=== PATIENT | male | born 1965 | race Caucasian/White ===

== ENCOUNTER 2021-08-23 18:29 | Emergency (ER) | payer MEDICAID, SELFPAY ==
--- NOTE | ~2021-08-23 | CT_ITS ---
EXAMINATION: CT ABDOMEN AND PELVIS WITHOUT CONTRAST CLINICAL INFORMATION: 55-year-old male with right lower quadrant pain COMPARISON: None TECHNIQUE: Multidetector volumetric imaging was performed from the superior aspect of the liver through the pubic symphysis. Sagittal and coronal reformatted images were obtained on the technologist's workstation. This CT examination was performed using dose optimization techniques as appropriate, variously including the following: *Automated exposure control *Adjustment of mA and/or kV according to patient size (this includes techniques or standardized protocols for targeted exams where dose is matched to indication/reason for exam; i.e. extremities or head) *Use of iterative reconstruction technique DLP: 579 mGy-cm FINDINGS: Visualized lung bases demonstrate mild dependent atelectasis. The liver demonstrates normal size, contour and attenuation. An approximately 2 cm gallstone is noted within an otherwise unremarkable appearing gallbladder. The pancreas, spleen and adrenal glands are unremarkable. Symmetrically sized kidneys. No renal calculi or hydronephrosis bilaterally. Normal caliber loops of small and large bowel. Normal appendix. Normal caliber abdominal aorta. No retroperitoneal lymphadenopathy. The bladder is normal in appearance. The prostate gland is at the upper limits of normal in size measuring 4.5 cm in maximum transverse dimension. No gross free pelvic fluid. No inguinal lymphadenopathy. Mild to moderate degenerative changes of the spine. CT/CT abdomen pelvis wo con IMPRESSION: -Cholelithiasis. -Otherwise unremarkable CT imaging of the abdomen and pelvis. Fleischner guidelines were followed.
[2021-08-23 19:56] VITALS: BP 178/81; PULSE 83; RESP 18; TEMP 36.7; O2SAT 99; BMI 28.3
[2021-08-23 20:26] LABS: Appearance Urine CLEAR; Color Urine YELLOW; Glucose Urine UA NEG (NEG); Leukocyte Esterase Urine NEG (NEG); Nitrite Urine NEG (NEG); Specific Gravity - Urine 1.025 (1.005-1.025); Urine Blood NEG (NEG); Urine Ketones 5 MG/DL (NEG); Urine Protein TRACE MG/DL (NEG-TRACE)
[2021-08-23 21:36] VITALS: BP 187/89; PULSE 74; RESP 18; TEMP 36.9; O2SAT 98
--- NOTE | 2021-08-23 21:39 | ED_ITS ---
HPI - Abdominal Pain General Chief Complaint: Abdominal Pain Stated Complaint: pain in appendix Time Seen by Provider: 08/23/21 21:38 Source: patient Mode of arrival: ambulatory Limitations: no limitations History of Present Illness HPI narrative: Patient with no significant past medical history complaining of right lower abdominal pain for last 5 days no nausea no vomiting, pain comes and goes no urinating problem no fever no chills Related Data Allergies Allergy/AdvReac Type Severity Reaction Status Date / Time No Known Allergies Allergy Unverified 03/31/20 16:54 Review of Systems Review of Systems Yes all other systems are reviewed and are negative Physical Exam Vital Signs: Vital Signs: Last Vital Signs Temp 98.4 F 08/23/21 21:36 Pulse 89 08/23/21 23:07 Resp 16 08/23/21 23:07 BP 186/89 H 08/23/21 23:07 Pulse Ox 96 08/23/21 23:07 BMI result Body Mass Index 28.3 Appearance: Alert. Oriented X3. No acute distress. Eyes: No pallor /icterus ENT: Pharynx normal. Oral Mucosa moist Neck: Normal inspection. Neck supple. CVS: Normal heart rate and rhythm. Pulses normal. Respiratory: No respiratory distress. Equal air entry bilateral, no wheezing/rales/rhonchi Abdomen: Soft, mild tenderness right lower quadrant rebound tenderness or guarding Bowel sounds are present, no mass palpable, no CVA tenderness Skin: Skin warm and dry. Normal skin color. Normal skin turgor. Extremities: No lower extremity edema. No calf tenderness Neuro: Oriented X 3. MDM - Abdominal Pain MDM Narrative Medical decision making narrative: Patient with right lower abdominal pain for 1 week with normal labs CT scan negative for any a inflammation showed 2 cm gallstone impression patient does not have any pain in the right upper quadrant no nausea no vomiting will discharge patient home with diagnosis of gallstone advised to follow with surgeon Differential Diagnosis Differential diagnosis: Likely abdominal pain Lab Data Attestation: I reviewed the patient's lab results. Result diagrams: 08/23/21 21:33 08/23/21 21:33 Labs: Lab Results 08/23/21 08/23/21 08/23/21 Range/Units 20:14 21:33 21:33 WBC 6.4 (4.8-10.8) X10*3/uL RBC 4.41 L (4.60-5.80) X10*6/uL Hgb 13.5 L (14.0-18.0) g/dl Hct 40.7 L (42.0-52.0) % MCV 92.3 (80.0-98.0) fL MCH 30.6 (27.0-33.0) pg MCHC 33.2 (31.0-36.0) g/dl RDW 12.0 (11.0-16.0) % Plt Count 234 (160-400) X10*3/uL MPV 10.6 (9.4-12.4) fL Immature Gran % (Auto) 0.5 H (0.0-0.4) % Neut % (Auto) 56.3 (45-73) % Lymph % (Auto) 31.3 (20-40) % [place] % (Auto) 7.7 (2-11) % Eos % (Auto) 3.4 (0-4) % Baso % (Auto) 0.8 (0-2) % Lymph # (Auto) 2.0 (1.2-4.9) X10*3/uL [place] # (Auto) 0.5 (0.1-1.2) X10*3/uL Eos # (Auto) 0.2 (0.0-0.4) X10*3/uL Baso # (Auto) 0.1 (0.0-0.2) X10*3/uL Abs Immat Gran (auto) 0.03 (0.00-0.03) X10*3/uL Absolute Neuts (auto) 3.6 (2.0-8.3) x10*3/uL Absolute Nucleated RBC 0.000 (0.0-0.012) X10*3/uL Nucleated RBC % (auto) 0.0 (0.0-0.2) /100WBC Sodium 143 (135-145) mmol/L Potassium 4.0 (3.3-5.1) mmol/L Chloride 109 H (96-108) mmol/L Carbon Dioxide 29 (22-29) mmol/L Anion Gap 9 L (12-20) BUN 27 H (9-16) mg/dL Creatinine 1.29 (0.5-1.4) mg/dL Estim Creat Clear Calc 56.4 Estimated GFR 57 Random Glucose 100 (60-115) mg/dL Calcium 9.7 (8.4-10.2) mg/dL Urine Color YELLOW Urine Appearance CLEAR Urine pH 6.0 (5.0-8.0) Ur Specific Rudy 1.025 (1.005-1.025) Urine Protein TRACE (NEG-TRACE) MG/DL Urine Glucose (UA) NEG (NEG) MG/DL Urine Ketones 5 (NEG) MG/DL Urine Blood NEG (NEG) Urine Nitrite NEG (NEG) Ur Leukocyte Esterase NEG (NEG) Discharge Plan Discharge Clinical Impression: Abdominal pain, Gall stone Patient Disposition: Home, Self-Care Instructions: Gallstones (ED), Abdominal Pain (ED) Additional Instructions: Drink plenty of fluids Avoid fried food Follow-up with surgeon if pain in upper quad right upper quadrant/ vomiting Beber mucho l?quido Malina la comida frita Seguimiento con el cirujano si hay dolor en el cu?driceps superior derecho/v?mitos Referrals: Desmond Walters MD [Physician] - 1 week Discharge Date/Time: 08/23/21 23:08 Print Language: Azeri [facility] Past Medical History Medical History No known health problems Social History Social History Patient Tobacco Use Status: Never used Tobacco Use of substances other than those prescribed or required for medical reasons: No Advance Directives: No Advance Directives Information Provided: No
[2021-08-23 21:49] LABS: MANUAL DIFF FLAG NO
--- NOTE | 2021-08-23 21:49 | PC.NURSE ---
pt a&o, denies any sob or chest pain, pt reports feelings better than either. pt denies any N/V. pt reports having a normal bowel movement.
[2021-08-23 21:50] LABS: Basophils Absolute Auto 0.1 X10*3/uL (0.0-0.2); Basophils Percent Auto 0.8 % (0-2); Eosinophils Absolute Auto 0.2 X10*3/uL (0.0-0.4); Eosinophils Percent Auto 3.4 % (0-4); Hematocrit 40.7 % (42.0-52.0); Hemoglobin 13.5 g/dl (14.0-18.0); Imm Gran Abs Auto 0.03 X10*3/uL (0.00-0.03); Imm Gran Pct Auto 0.5 % (0.0-0.4); Lymphocytes Percent Auto 31.3 % (20-40); Mean Corpuscular HGB Conc 33.2 g/dl (31.0-36.0); Mean Corpuscular Hemoglobin 30.6 pg (27.0-33.0); Mean Corpuscular Volume 92.3 fL (80.0-98.0); Mean Platelet Volume 10.6 fL (9.4-12.4); Monocytes Absolute Auto 0.5 X10*3/uL (0.1-1.2); Monocytes Percent Auto 7.7 % (2-11); Neutrophils Absolute Auto 3.6 x10*3/uL (2.0-8.3); Neutrophils Percent Auto 56.3 % (45-73); Platelet Count 234 X10*3/uL (160-400); Red Blood Count 4.41 X10*6/uL (4.60-5.80); White Blood Count 6.4 X10*3/uL (4.8-10.8)
[2021-08-23 22:18] LABS: Anion Gap 9 (12-20); Blood Urea Nitrogen 27 mg/dL (9-16); Calcium 9.7 mg/dL (8.4-10.2); Carbon Dioxide 29 mmol/L (22-29); Chloride 109 mmol/L (96-108); Creatinine Clr Calc Pharmacy 56.4; Estimated Glomerular Filt Rate 57; Glucose Random 100 mg/dL (60-115); Sodium 143 mmol/L (135-145)
--- NOTE | 2021-08-23 22:24 | PC.NURSE ---
pt is resting in bed no sign of distress.
[2021-08-23 23:07] VITALS: BP 186/89; PULSE 89; RESP 16; O2SAT 96
== END 2021-08-23 23:08 | disposition home or self-care (01) ==
PROVIDERS: Emergency Provider Internal Medicine
DX: R10.31 Right lower quadrant pain (principal); K80.50 Calculus of bile duct without cholangitis or cholecystitis without obstruction
CPT/HCPCS: 36415; 74176; 80048; 81003; 85025; 99284

== ENCOUNTER → 2021-10-10 14:00 | Outpatient (BNVA) | payer MEDICAID, SELFPAY | PROVIDERS: Visit Provider Surgery | DX: K80.50 Calculus of bile duct without cholangitis or cholecystitis without obstruction (principal) | CPT/HCPCS: 99202 ==

== ENCOUNTER 2021-11-06 07:14 | Day surgery (SDC) | payer MEDICAID, SELFPAY ==
[2021-10-31 10:19] VITALS: BMI 30.6
[2021-11-06] VITALS (8 sets, daily range): BP systolic 122–157; BP diastolic 72–85; PULSE 64–77; RESP 16–18; TEMP 36.1–36.3; O2SAT 92–100
[2021-11-06] MEDS: Lactated Ringers 1,000 ML 100 ML IVCONT (08:09)
--- NOTE | 2021-11-06 08:31 | MHC.SHP ---
Pre-Procedural Eval Section A Date of Service: 11/06/21 The patient is an INPATIENT: No Changes since office visit: Yes Patient answered all questions; No Cold of Flu in the past 2 weeks, No New Medical Problems and No Changes in Medication The History & Physical has been completed within 30 days and I have reviewed it.: Yes Section B Chief Complaint: Calculus of bile duct without cholangitis Allergies: Allergies Allergy/AdvReac Type Severity Reaction Status Date / Time No Known Allergies Allergy Unverified 10/10/21 14:11 Plan Diagnosis/Plan: Unchanged I have reviewed the history and physical and performed a pertinent physical examination on my patient. No changes have occurred unless specified.
--- NOTE | 2021-11-06 08:42 | HO.ANESPROP2 ---
HPI - Anesthesia Eval Consult details Narrative: 55 M for palmira cooper PMFSH Active Problems Active Problems: All Active Problems (Updated 10/31/21 @ 10:14 by Kathy Streeter RN) Biliary colic (Acute) Past Medical History Medical History (Updated 10/31/21 @ 10:14 by Kathy Streeter RN) Elevated cholesterol HTN (hypertension) Functional capacity: independent ambulation Family History Family History Paternal Uncle Prostate cancer Family history of problems with anesthesia: No Surgical History Surgical History (Updated 10/31/21 @ 10:14 by Kathy Streeter RN) Hx of excision of mass History of Problems with Anesthesia: No Social History Social History Alcohol intake: never Patient Tobacco Use Status: Never used Tobacco Meds Allergies Allergy/AdvReac Type Severity Reaction Status Date / Time No Known Allergies Allergy Unverified 10/10/21 14:11 Active Medications: Current Medications Lactated Ringer's (Lr) 1,000 mls @ 100 mls/hr IVCONT .Q10H KAMILAH Last Admin: 11/06/21 08:09 Dose: 100 mls/hr Documented by: Home Medications Medication Instructions Recorded Confirmed Last Taken Type atorvastatin 10 mg tablet 10 mg PO DAILY 10/10/21 10/31/21 Unknown History cholecalciferol (vitamin D3) 25 25 mcg PO QAM 10/10/21 10/31/21 Unknown History mcg (1,000 unit) capsule lisinopril 20 1 tab PO DAILY 10/10/21 10/31/21 11/06/21 History mg-hydrochlorothiazide 12.5 mg tablet Exam Exam Date and Time: November 06, 2021 0842 Height,Weight and Vital Signs: Height 5 ft 3 in Weight 78.471 kg Last Vital Signs Temp 97.2 F 11/06/21 07:56 Pulse 72 11/06/21 07:56 Resp 18 11/06/21 07:56 BP 157/83 H 11/06/21 07:56 Pulse Ox 97 11/06/21 07:56 Airway Mallampati Class: III TM Dist: >3cm Neck ROM: Full Loose/Missing/Broken Teeth: Yes (Chipped teeth ) Heart: S1, S2 Lungs: b/l breath sounds Assessment and Plan Assessment Anesthesia Assessment: Anesthesia Plan Discussed Final Anesthetic Review Family History of Problems with Anesthesia: No History of Problems with Anesthesia: No NPO: Yes ASA Class: II Final Preanesthetic Review: No Changes in Pt Med Stat, Meds/Allgs Chart Reviewed, Consent Obtained/Reviewed and Anes Risks/Benef Reviewed Patient Risk: Intermediate Procedure Risk: Intermediate Anesthetic Plan Anesthetic Plan: GA Disposition: Standard PACU
--- NOTE | 2021-11-06 10:00 | W.PM.OPN ---
Operative Note Operative Note Date of Service: 11/06/21 Narrative: Preoperative diagnosis: Biliary Colic Postoperative diagnosis: Same Procedure: Laparoscopic cholecystectomy Surgeon: Desmond Walters MD [employer] Repairer: LILY Vilchis Anesthesia: General endotracheal Indications for procedure: 55 year old male patient presenting with complaints of abdominal pain in the right upper quadrant found to have a single large gallstone within the gallbladder. Operative findings: Evidence of chronic cholecystitis with adhesions to the gallbladder wall and a single large gallstone at the base of the gallbladder Specimen: gallbladder Estimated blood loss:1 ml Complications: none Procedure details: Patient was brought to the OR and placed in a supine position. After administering general anesthesia the patient's abdomen was prepped with ChloraPrep and draped in a sterile fashion. Local anesthesia consisting of 0.5% Ropivacaine without epinephrine was infiltrated in a periumbilical region. A 5 mm incision was made above the umbilicus in a transverse fashion. The Veress needle was then inserted while elevating abdominal cavity with towel clips. After positive drop test the abdomen was insufflated to a pressure of 15 mm of mercury. The Veress needle was then removed and a 5 mm trocar inserted. The camera was inserted in the abdomen explored. A 12 mm trocar was then placed in the epigastrium. Two 5 mm trocars placed in the right upper quadrant by the esl instructional assistant. The patient was placed in reverse Trendelenburg positioning and rotated to the left. The gallbladder was grasped with the fundus and retracted cephalad by the esl instructional assistant. The infundibulum was then grasped and retracted away from the liver bed, also by the esl instructional assistant. The Dolphin dissected was then used by the surgeon to dissect the peritoneum off the infundibulum to reveal the junction with the cystic duct. Cystic artery was noted slightly medial and posterior to the cystic duct. After obtaining a critical view the cystic duct was doubly clipped and divided. The cystic artery was then doubly clipped and divided. The gallbladder was then dissected off the liver bed using electrocautery with an L hook. Hemostasis was assured all times using the electrocautery. When the gallbladder is completely dissected off the liver bed was placed in an Endo-Catch bag and brought out through the epigastric incision. The gallbladder was sent to pathology for further examination. The abdomen was then re-examined. The liver bed was irrigated and suctioned dry. No bleeding or bile leak could be identified. CO2 was then evacuated and all trocars removed. Fascia was closed at the epigastric incision using a awcmsh-be-desuy 0 Polysorb suture. Skin was closed in all incisions using a subcuticular 4 0 Polysorb suture by both the surgeon and esl instructional assistant. Sterile dressings consisting of Steri-Strips, 2 x 2 gauze, and Tegaderm were then applied. The patient tolerated the procedure well. Sponge instrument and needle counts reported as correct. The patient was transferred to PACU in stable condition.
[2021-11-06] MEDS: oxyCODONE HCl Immed Release 5 MG TABLET PO (10:48)
[2021-11-06] MEDS: Acetaminophen 325 MG TABLET 650 MG PO (10:49)
== END 2021-11-06 12:10 | disposition home or self-care (01) ==
PROVIDERS: Visit Provider Surgery
PROC: 0FT44ZZ Resection of Gallbladder, Percutaneous Endoscopic Approach (ICD-10-PCS; CPT 47562; principal; 2021-11-06 09:10)
DX: K80.10 Calculus of gallbladder with chronic cholecystitis without obstruction (principal); K82.8 Other specified diseases of gallbladder; I10 Essential (primary) hypertension; Z79.899 Other long term (current) drug therapy
CPT/HCPCS: 47562; 88304; J1170; J2250; J2370; J2795; J3010

== ENCOUNTER → 2021-11-14 10:45 | Outpatient (BNVA) | payer MEDICAID, SELFPAY | PROVIDERS: PCP Nurse Practitioner; Visit Provider Surgery | DX: Z48.815 Encounter for surgical aftercare following surgery on the digestive system (principal); Z87.19 Personal history of other diseases of the digestive system | CPT/HCPCS: 99212 ==

== ENCOUNTER → 2022-08-10 10:39 | Outpatient (BNVA) | payer MEDICAID, SELFPAY | PROVIDERS: PCP Internal Medicine Geriatric Medicine; Visit Provider Nurse Practitioner Family | DX: N52.9 Male erectile dysfunction, unspecified (principal); R68.82 Decreased libido; Z87.898 Personal history of other specified conditions | CPT/HCPCS: 99202 ==

== ENCOUNTER 2022-08-11 20:06 | Emergency (ER) | payer MEDICAID, SELFPAY ==
[2022-08-11 20:09] VITALS: BP 141/79; PULSE 97; RESP 18; TEMP 36.4; O2SAT 97; BMI 31.5
--- NOTE | 2022-08-11 20:14 | ED_ITS ---
HPI - General Adult General Chief complaint: General Medical <DANIEL Ferro - Last Filed: 08/11/22 20:14> Stated complaint: Rectal bleeding? <DANIEL Ferro - Last Filed: 08/11/22 20:14> Time Seen by Provider: 08/11/22 20:27 <DANIEL Ferro - Last Filed: 08/11/22 20:14> Source: patient <Sarthak Gill MD - Last Filed: 08/12/22 01:11> Mode of arrival: ambulatory <Sarthak Gill MD - Last Filed: 08/12/22 01:11> Limitations: no limitations <Sarthak Gill MD - Last Filed: 08/12/22 01:11> History of Present Illness HPI narrative: Patient with History of hemorrhoids noticed bleeding per rectum for last 3 days whenever he moves bowel stool is bright red in color and drips after the bowel movement stool is normal color as such also patient complaining of mild suprapubic discomfort fever no chills having loose stools no constipation lately <Sarthak Gill MD - Last Filed: 08/12/22 01:11> Related Data Home medications: Home Medications Medication Instructions Recorded Confirmed atorvastatin 10 mg tablet 10 mg PO DAILY 10/10/21 08/10/22 cholecalciferol (vitamin D3) 25 25 mcg PO QAM 10/10/21 08/10/22 mcg (1,000 unit) capsule lisinopril 20 1 tab PO DAILY 10/10/21 08/10/22 mg-hydrochlorothiazide 12.5 mg tablet Previous Rx's Medication Instructions Recorded tadalafil 20 mg tablet (Cialis) 20 mg PO DAILY PRN sexual activity 08/10/22 60 days #20 tabs hydrocortisone acetate 25 mg 25 mg GA BID #12 ea 08/11/22 rectal suppository (Anusol-HC) <DANIEL Ferro - Last Filed: 08/11/22 20:14> Allergies/adverse reactions: Allergies Allergy/AdvReac Type Severity Reaction Status Date / Time No Known Allergies Allergy Unverified 08/10/22 11:11 <DANIEL Ferro - Last Filed: 08/11/22 20:14> Review of Systems Review of Systems: Yes all other systems are reviewed and are negative <Sarthak Gill MD - Last Filed: 08/12/22 01:11> [facility] Past Medical History Medical History: Medical History Elevated cholesterol HTN (hypertension) <DANIEL Ferro - Last Filed: 08/11/22 20:14> Surgical History: Surgical History History of laparoscopic cholecystectomy (11/06/21) Hx of excision of mass <DANIEL Ferro - Last Filed: 08/11/22 20:14> Family History Family History: Family History Paternal Uncle Prostate cancer <DANIEL Ferro - Last Filed: 08/11/22 20:14> Social History Social History: Social History Alcohol intake: never Patient Tobacco Use Status: Never used Tobacco Advance Directives: No Advance Directives Information Provided: No <DANIEL Ferro - Last Filed: 08/11/22 20:14> Physical Exam ED Vital Signs: Vital Signs - 24 hr 08/11/22 20:09 08/11/22 22:01 Temperature 97.6 F 98.2 F Pulse Rate 97 94 Respiratory Rate 18 18 Blood Pressure 141/79 H 142/88 H Pulse Oximetry 97 95 Oxygen Delivery Method Room Air Room Air BMI result Body Mass Index 31.5 <DANIEL Ferro - Last Filed: 08/11/22 20:14> Vital Signs - 24 hr 08/11/22 20:09 08/11/22 22:01 Temperature 97.6 F 98.2 F Pulse Rate 97 94 Respiratory Rate 18 18 Blood Pressure 141/79 H 142/88 H Pulse Oximetry 97 95 Oxygen Delivery Method Room Air Room Air BMI result Body Mass Index 31.5 <Sarthak Gill MD - Last Filed: 08/12/22 01:11> Appearance: Alert. Oriented X3. No acute distress. Eyes: PERRLA, No Nystagmus ENT: Pharynx normal. Oral Mucosa moist Neck: Normal inspection. Neck supple. CVS: Normal heart rate and rhythm. Pulses normal. Respiratory: No respiratory distress. Equal air entry bilateral, no wheezing/rales/rhonchi Abdomen: Soft and nontender. Bowel sounds are present, no mass palpable, no CVA tenderness rectal: Hemorrhoids palpable non bleeding Skin: Skin warm and dry. Normal skin color. Normal skin turgor. Extremities: No lower extremity edema. No calf tenderness Neuro: Oriented X 3. No motor deficit. No sensory deficit. <Sarthak Gill MD - Last Filed: 08/12/22 01:11> Course Course Course Narrative: RME completed by Diane Rogel PA-C. Patient is a 56 year old male with a history of diverticulitis and hemorrhoids presenting to the emergency department today with bright red rectal bleeding. Labs ordered. Patient placed back in the waiting room pending results and room availability. <DANIEL Ferro - Last Filed: 08/11/22 20:14> Medical Decision Making Medical Decision Making [facility] Narrative: Patient with stable H&H with hemorrhoidal bleed likely the cause for rectal bleed. Discharge patient home on Anusol suppository advised not to strain and take stool softener for constipation <Sarthak Gill MD - Last Filed: 08/12/22 01:11> Lab Data [facility] Lab Attestation statement: I reviewed the patient's lab results. <Sarthak Gill MD - Last Filed: 08/12/22 01:11> Result Diagrams: 08/11/22 20:25 08/11/22 20:25 <DANIEL Ferro - Last Filed: 08/11/22 20:14> Labs: Lab Results 08/11/22 08/11/22 Range/Units 20:25 20:25 WBC 8.5 (4.8-10.8) X10*3/uL RBC 4.44 L (4.60-5.80) X10*6/uL Hgb 13.5 L (14.0-18.0) g/dl Hct 38.7 L (42.0-52.0) % MCV 87.2 (80.0-98.0) fL MCH 30.4 (27.0-33.0) pg MCHC 34.9 (31.0-36.0) g/dl RDW 12.5 (11.0-16.0) % Plt Count 252 (160-400) X10*3/uL MPV 10.0 (9.4-12.4) fL Immature Gran % (Auto) 0.4 (0.0-0.4) % Neut % (Auto) 68.3 (45-73) % Lymph % (Auto) 21.3 (20-40) % [place] % (Auto) 6.9 (2-11) % Eos % (Auto) 2.0 (0-4) % Baso % (Auto) 1.1 (0-2) % Lymph # (Auto) 1.8 (1.2-4.9) X10*3/uL [place] # (Auto) 0.6 (0.1-1.2) X10*3/uL Eos # (Auto) 0.2 (0.0-0.4) X10*3/uL Baso # (Auto) 0.1 (0.0-0.2) X10*3/uL Abs Immat Gran (auto) 0.03 (0.00-0.03) X10*3/uL Absolute Neuts (auto) 5.8 (2.0-8.3) x10*3/uL Absolute Nucleated RBC 0.000 (0.0-0.012) X10*3/uL Nucleated RBC % (auto) 0.0 (0.0-0.2) /100WBC Sodium 140 (135-145) mmol/L Potassium 3.2 L (3.3-5.1) mmol/L Chloride 100 (96-108) mmol/L Carbon Dioxide 31 H (22-29) mmol/L Anion Gap 12 (12-20) BUN 26 H (9-16) mg/dL Creatinine 1.51 H (0.5-1.4) mg/dL Estim Creat Clear Calc 50.1 Estimated GFR 48 Random Glucose 144 H (60-115) mg/dL Calcium 9.5 (8.4-10.2) mg/dL Magnesium 1.8 (1.6-2.6) mg/dL Total Bilirubin 0.5 (0.0-1.0) mg/dL AST 27 (5-37) U/L ALT 45 H (0-40) U/L Alkaline Phosphatase 83 (39-117) U/L Total Protein 6.9 (6.5-8.0) g/dL Albumin 4.2 (3.5-5.0) g/dL <DANIEL Ferro - Last Filed: 08/11/22 20:14> Lab Results 08/11/22 08/11/22 Range/Units 20:25 20:25 WBC 8.5 (4.8-10.8) X10*3/uL RBC 4.44 L (4.60-5.80) X10*6/uL Hgb 13.5 L (14.0-18.0) g/dl Hct 38.7 L (42.0-52.0) % MCV 87.2 (80.0-98.0) fL MCH 30.4 (27.0-33.0) pg MCHC 34.9 (31.0-36.0) g/dl RDW 12.5 (11.0-16.0) % Plt Count 252 (160-400) X10*3/uL MPV 10.0 (9.4-12.4) fL Immature Gran % (Auto) 0.4 (0.0-0.4) % Neut % (Auto) 68.3 (45-73) % Lymph % (Auto) 21.3 (20-40) % [place] % (Auto) 6.9 (2-11) % Eos % (Auto) 2.0 (0-4) % Baso % (Auto) 1.1 (0-2) % Lymph # (Auto) 1.8 (1.2-4.9) X10*3/uL [place] # (Auto) 0.6 (0.1-1.2) X10*3/uL Eos # (Auto) 0.2 (0.0-0.4) X10*3/uL Baso # (Auto) 0.1 (0.0-0.2) X10*3/uL Abs Immat Gran (auto) 0.03 (0.00-0.03) X10*3/uL Absolute Neuts (auto) 5.8 (2.0-8.3) x10*3/uL Absolute Nucleated RBC 0.000 (0.0-0.012) X10*3/uL Nucleated RBC % (auto) 0.0 (0.0-0.2) /100WBC Sodium 140 (135-145) mmol/L Potassium 3.2 L (3.3-5.1) mmol/L Chloride 100 (96-108) mmol/L Carbon Dioxide 31 H (22-29) mmol/L Anion Gap 12 (12-20) BUN 26 H (9-16) mg/dL Creatinine 1.51 H (0.5-1.4) mg/dL Estim Creat Clear Calc 50.1 Estimated GFR 48 Random Glucose 144 H (60-115) mg/dL Calcium 9.5 (8.4-10.2) mg/dL Magnesium 1.8 (1.6-2.6) mg/dL Total Bilirubin 0.5 (0.0-1.0) mg/dL AST 27 (5-37) U/L ALT 45 H (0-40) U/L Alkaline Phosphatase 83 (39-117) U/L Total Protein 6.9 (6.5-8.0) g/dL Albumin 4.2 (3.5-5.0) g/dL <Sarthak Gill MD - Last Filed: 08/12/22 01:11> Discharge Plan Discharge Clinical Impression: Bleeding hemorrhoid <DANIEL Ferro - Last Filed: 08/11/22 20:14> Patient Disposition: Home, Self-Care <DANIEL Ferro - Last Filed: 08/11/22 20:14> Instructions: Hemorrhoids (ED) <DANIEL Ferro - Last Filed: 08/11/22 20:14> Additional Instructions: Use suppository twice daily as prescribed Avoid constipation or straining while moving bowels Report to the ER if bleeding continues Use el supositorio dos veces al d?a seg?n lo prescrito Evite el estre?imiento o el esfuerzo al defecar Informe a la zoe de emergencias si el sangrado contin?a <DANIEL Ferro - Last Filed: 08/11/22 20:14> Prescriptions: New hydrocortisone acetate [Anusol-HC] 25 mg suppository 25 mg GA BID Qty: 12 0RF No Action lisinopril-hydrochlorothiazide 20-12.5 mg tablet 1 tab PO DAILY atorvastatin 10 mg tablet 10 mg PO DAILY cholecalciferol (vitamin D3) 25 mcg (1,000 unit) capsule 25 mcg PO QAM tadalafil [Cialis] 20 mg tablet 20 mg PO DAILY PRN (Reason: sexual activity) 60 Days Qty: 20 0RF Rx Instructions: administer approximately 30min before sexual activity; do not use more than 1 dose per 24hrs BIN N Group [facility] [id number] <DANIEL Ferro - Last Filed: 08/11/22 20:14> Interventions: ED Discharge Assessment Last Done: 08/11/22 22:04 <DANIEL Ferro - Last Filed: 08/11/22 20:14> Discharge Date/Time: 08/11/22 22:04 <DANIEL Ferro - Last Filed: 08/11/22 20:14> Print Language: Japanese <DANIEL Ferro - Last Filed: 08/11/22 20:14>
[2022-08-11 20:31] LABS: MANUAL DIFF FLAG NO
[2022-08-11 20:40] LABS: Basophils Absolute Auto 0.1 X10*3/uL (0.0-0.2); Basophils Percent Auto 1.1 % (0-2); Eosinophils Absolute Auto 0.2 X10*3/uL (0.0-0.4); Hematocrit 38.7 % (42.0-52.0); Hemoglobin 13.5 g/dl (14.0-18.0); Imm Gran Abs Auto 0.03 X10*3/uL (0.00-0.03); Imm Gran Pct Auto 0.4 % (0.0-0.4); Lymphocytes Absolute Auto 1.8 X10*3/uL (1.2-4.9); Lymphocytes Percent Auto 21.3 % (20-40); Mean Corpuscular HGB Conc 34.9 g/dl (31.0-36.0); Mean Corpuscular Hemoglobin 30.4 pg (27.0-33.0); Mean Corpuscular Volume 87.2 fL (80.0-98.0); Monocytes Absolute Auto 0.6 X10*3/uL (0.1-1.2); Monocytes Percent Auto 6.9 % (2-11); Neutrophils Absolute Auto 5.8 x10*3/uL (2.0-8.3); Neutrophils Percent Auto 68.3 % (45-73); Platelet Count 252 X10*3/uL (160-400); Red Blood Count 4.44 X10*6/uL (4.60-5.80); Red Cell Distribution Width 12.5 % (11.0-16.0); White Blood Count 8.5 X10*3/uL (4.8-10.8)
[2022-08-11 20:48] LABS: Alanine Aminotransferase 45 U/L (0-40); Albumin Level 4.2 g/dL (3.5-5.0); Alkaline Phosphatase 83 U/L (39-117); Anion Gap 12 (12-20); Aspartate Amino Transferase 27 U/L (5-37); Bilirubin Total 0.5 mg/dL (0.0-1.0); Blood Urea Nitrogen 26 mg/dL (9-16); Calcium 9.5 mg/dL (8.4-10.2); Carbon Dioxide 31 mmol/L (22-29); Chloride 100 mmol/L (96-108); Creatinine Clr Calc Pharmacy 50.1; Estimated Glomerular Filt Rate 48; Glucose Random 144 mg/dL (60-115); Magnesium 1.8 mg/dL (1.6-2.6); Potassium 3.2 mmol/L (3.3-5.1); Sodium 140 mmol/L (135-145); Total Protein 6.9 g/dL (6.5-8.0)
[2022-08-11 22:01] VITALS: BP 142/88; PULSE 94; RESP 18; TEMP 36.8; O2SAT 95
== END 2022-08-11 22:04 | disposition home or self-care (01) ==
PROVIDERS: Physician Assistant Medical; Emergency Provider Internal Medicine; PCP Internal Medicine Geriatric Medicine
DX: K64.9 Unspecified hemorrhoids (principal); I10 Essential (primary) hypertension; E78.00 Pure hypercholesterolemia, unspecified; Z79.02 Long term (current) use of antithrombotics/antiplatelets; Z79.899 Other long term (current) drug therapy
CPT/HCPCS: 36415; 80053; 83735; 85025; 99283; 99284

== ENCOUNTER 2022-10-08 11:44 | Outpatient (REF) | payer MEDICAID, SELFPAY ==
[2022-10-08 13:30] LABS: PSA,Total (Free>4and<10) 2.88 ng/mL (0.00-4.00)
[2022-10-12 14:39] LABS: Testosterone, Free 24.5 pg/mL (35.0-155.0); Testosterone, Total 152 ng/dL (250-1100)
== END 2022-10-08 11:45 | disposition home or self-care (01) ==
LOC: HO.LAB 11:44
PROVIDERS: PCP Internal Medicine Geriatric Medicine; Visit Provider Nurse Practitioner Family
DX: N52.9 Male erectile dysfunction, unspecified (principal); R68.82 Decreased libido; Z87.898 Personal history of other specified conditions; Z12.5 Encounter for screening for malignant neoplasm of prostate
CPT/HCPCS: 36415; 84153; 84402; 84403

== ENCOUNTER → 2022-10-23 10:30 | Outpatient (BNVA) | payer MEDICAID, SELFPAY | PROVIDERS: PCP Internal Medicine Geriatric Medicine; Visit Provider Nurse Practitioner Family | DX: E29.1 Testicular hypofunction (principal); R68.82 Decreased libido; N52.9 Male erectile dysfunction, unspecified | CPT/HCPCS: 99212 ==

== ENCOUNTER 2023-01-29 13:40 | Outpatient (REF) | payer MEDICAID, SELFPAY ==
[2023-01-29 16:58] LABS: TSH reflex Free T4 7.62 uIU/mL (0.32-4.0)
[2023-01-29 17:54] LABS: Free T4 (Free Thyroxine) 0.84 ng/dL (0.71-1.85)
[2023-01-31 07:24] LABS: Lutenizing Hormone 4.1 mIU/mL (1.5-9.3)
[2023-02-03 12:23] LABS: Testosterone, Total 222 ng/dL (250-1100)
== END 2023-01-29 13:41 | disposition home or self-care (01) ==
LOC: HO.HHCL 13:40
PROVIDERS: Visit Provider Internal Medicine Geriatric Medicine
DX: R79.89 Other specified abnormal findings of blood chemistry (principal)
CPT/HCPCS: 36415; 83001; 83002; 84403; 84439; 84443

== ENCOUNTER 2023-01-30 12:33 | Outpatient (AMB) | payer MEDICAID, SELFPAY ==
--- NOTE | 2023-01-30 13:13 | MHC.OFFVIS ---
Intake Vital Signs 01/30/23 13:16 Height 5 ft 3 in Weight 177 lb BMI 31.4 BP 170/98 H Blood Pressure Location Lt brachial Position Sitting Pulse 68 Pulse Source Pulse Oximeter Pulse Oximetry (%) 98 Oxygen Delivery Method Room Air Intake Visit Reasons: E-REGULATORY AFFAIRS ASSISTANT: Sleep Apnea - Confirmed Intake Note: Pt presents in office as a NPV for sleep apnea Associate Publisher Required: Yes Associate Publisher Name: Lady Finnegan Information Interpreted: non-clinical & clinical Allergies No Known Allergies Allergy (Unverified 01/30/23 13:20) HPI HPI Comments History of Present Illness Details 57 y/o male patient with uncontrolled HTN presents with his for new in-person visit for sleep consultation. Pt reports that his witnessed apnea spells, and has been worsened. She recorded the apnea events and noticed that he stopped breathing more than 40 sec many times. He reports non refreshing sleep with excessive daytime sleepiness. He can fall asleep while he was driving or talking to his . He is on several BP medications to control high BP but not helpful. Pt had a home sleep study in the past, but it was inconclusive. He gained 40 lb after gallbladder surgery 2 years ago. Sleep questionnaire: Have you ever been diagnosed with a sleep disorder? No. Have you ever had a sleep study in the past? No. Have you ever been treated for a sleep disorder? No. Do you take medications for a sleep disorder? No. Do you snore? Yes. Do you wake up gasping at night? Yes. Do you have episodes of apneas? Yes. If yes, are they witnessed? Yes, by his . Do you have episodes of nocturnal chest pain or dyspnea? No. Do you have difficulty initiating sleep? Yes, sometimes. Do you have difficulty maintaining sleep? Yes, sometimes. Do you wake up tired? Yes. Do you have headaches upon awakening? Yes. Do you wake up with dry mouth or throat? Yes. Do you have GERD? Yes. Do you have nocturia? Yes. Do you have nocturnal leg cramps? Yes. Do you have symptoms of restless legs? No. Do you act out your dreams? Yes. Sleep hygiene questionnaire: What is your usual sleep routine? Usual bedtime is at 10 pm; Usual wake up time is at 4 am. Do you take naps? Yes, 2 hrs. Is your sleep environment cool, dark, and quiet? Yes. Do you exercise? No. Do you take caffeine or other stimulants? Coffee in the morning. and evening sometimes. Do you use electronics in bed? Yes. What is your work schedule? 7 am-3:40 pm. Hypersomnolence questionnaire: Do you have daytime tiredness or fatigue? Yes. Do you easily fall asleep when inactive? Yes. Have you ever had episodes of sudden weakness? No. Have you ever had episodes of sudden weakness associated with strong emotions? [facility] Medical History (Updated 01/30/23 @ 13:56 by Jean Marie Rouse CNP) Elevated cholesterol HTN (hypertension) Surgical History History of laparoscopic cholecystectomy (11/06/21) Hx of excision of mass Family History Paternal Uncle Prostate cancer Social History (Updated 01/30/23 @ 13:26 by Kateryna Ramirez CMA) Alcohol intake: never Patient Tobacco Use Status: Never used Tobacco Review of Systems Const All systems reviewed & are unremarkable except as noted in HPI and below ENT Reports Normal hearing present Neuro Reports Normal hearing present Physical Exam Vital Signs: Last Vital Signs Pulse 68 01/30/23 13:16 BP 170/98 H 01/30/23 13:16 Pulse Ox 98 01/30/23 13:16 Oxygen Delivery Method Room Air 01/30/23 13:16 BMI result Body Mass Index 31.4 Const General: cooperative and tired appearing Nutritional Appearance: obese Orientation/consciousness: patient oriented x3 Limitations: language barrier Neck Neck: Yes full ROM and Yes supple Resp Effort & Inspection: normal respiratory effort and able to speak in complete sentences Neuro General: patient oriented x3, gait normal, moves all extremities and no focal motor deficits Cranial nerves: Yes Bilaterally intact EOM present, Yes Normal facial strength present, Yes Midline tongue present, Yes Symmetric palate elevation present, Yes Normal hearing present, Yes Ability to bilaterally rotate head present and Yes Ability to bilaterally elevate shoulders present Cognition (Neuro): normal cognition Gait exam (Neuro): Normal gait present Motor exam (neuro): 5/5 motor strength present throughout, Pronator motor function not present and no tremor noted Psych Appearance: grossly normal Mental Status: mental status grossly normal Speech and movement: Normal speech and movement present Affect: normal affect Attitude: cooperative Assessment & Plan Assessment & Plan (1) Excessive daytime sleepiness: Code(s): G47.19 - Other hypersomnia (2) Snoring: Code(s): R06.83 - Snoring Plan Pt is advised to undergo home sleep study to assess for sleep apnea. Will f/u with pt after study to discuss results and appropriate treatment options. Sleep hygiene education provided. Advised patient to limit caffeine intake in the evening and electronic use before bedtime. Advised patient to try magnesium 400 mg qHS for legs muscle spasm. Pt to call with any worsening concerns or questions. Orders: Orders RT home sleep study Today G47.19 - Other hypersomnia, I10 - Essential (primary) hypertension, R06.83 - Snoring Medications: New magnesium oxide 400 mg PO BEDTIME 30 days 30 tabs 3RF Coding Level of Care Code New Pt Level 4 (11523) Diagnoses Excessive daytime sleepiness G47.19 Snoring R06.83
[2023-01-30 13:16] VITALS: BP 170/98; PULSE 68; O2SAT 98; BMI 31.4
== END 2023-01-30 14:03 | disposition home or self-care (01) ==
PROVIDERS: PCP Internal Medicine Geriatric Medicine; Visit Provider Nurse Practitioner Family
DX: G47.19 Other hypersomnia (principal); R06.83 Snoring
CPT/HCPCS: 99204

== ENCOUNTER → 2023-01-30 12:33 | Outpatient (BNVA) | payer MEDICAID, SELFPAY | PROVIDERS: PCP Internal Medicine Geriatric Medicine; Visit Provider Nurse Practitioner Family | DX: G47.19 Other hypersomnia (principal); R06.83 Snoring; I10 Essential (primary) hypertension | CPT/HCPCS: 99204 ==

== ENCOUNTER → 2023-03-06 13:49 | Outpatient (REF) | payer MEDICAID, SELFPAY | LOC: HO.SL 13:49 | PROVIDERS: PCP Internal Medicine Geriatric Medicine; Visit Provider Nurse Practitioner Family | DX: R06.83 Snoring (principal); G47.19 Other hypersomnia; I10 Essential (primary) hypertension; G47.33 Obstructive sleep apnea (adult) (pediatric) | CPT/HCPCS: 95806 ==

== ENCOUNTER → 2023-03-06 13:58 | Outpatient (BNV) | payer MEDICAID, SELFPAY | PROVIDERS: PCP Internal Medicine Geriatric Medicine; Visit Provider Psychiatry & Neurology Neurology | DX: G47.33 Obstructive sleep apnea (adult) (pediatric) (principal) | CPT/HCPCS: 95806 ==

== ENCOUNTER 2023-03-13 09:44 | Outpatient (REF) | payer MEDICAID, SELFPAY ==
[2023-03-13 12:10] LABS: Cholesterol 160 mg/dL (<200); HDL Cholesterol 43 mg/dL (>40); LDL Cholesterol Calculated 108 mg/dL (<100); Triglycerides 46 mg/dL (<150)
== END 2023-03-13 09:45 | disposition home or self-care (01) ==
LOC: HO.HHCL 09:44
PROVIDERS: Visit Provider Internal Medicine Geriatric Medicine
DX: Z79.899 Other long term (current) drug therapy (principal)
CPT/HCPCS: 36415; 80061

== ENCOUNTER → 2023-03-31 20:30 | Outpatient (REF) | payer MEDICAID, SELFPAY | LOC: HO.SL 20:30 | PROVIDERS: PCP Internal Medicine Geriatric Medicine; Visit Provider Nurse Practitioner Family | DX: G47.33 Obstructive sleep apnea (adult) (pediatric) (principal) | CPT/HCPCS: 95811 ==

== ENCOUNTER → 2023-03-31 21:55 | Outpatient (BNV) | payer MEDICAID, SELFPAY | PROVIDERS: PCP Internal Medicine Geriatric Medicine; Visit Provider Psychiatry & Neurology Neurology | DX: G47.33 Obstructive sleep apnea (adult) (pediatric) (principal) | CPT/HCPCS: 95811 ==

== ENCOUNTER 2023-04-03 20:39 | Emergency (ER) | payer MEDICAID, SELFPAY ==
[2023-04-03 21:29] VITALS: BP 157/89; PULSE 70; RESP 18; TEMP 37.3; O2SAT 96; BMI 30.5
[2023-04-03 22:15] VITALS: BP 172/88
[2023-04-03 23:59] VITALS: BP 168/94; PULSE 64; RESP 16; TEMP 36.5; O2SAT 98
--- NOTE | 2023-04-04 01:00 | ED_ITS ---
HPI - Headache General Chief Complaint: Headache Stated Complaint: headache Time Seen by Provider: 04/04/23 01:00 Source: patient, RN notes reviewed and old records reviewed Mode of arrival: ambulatory History of Present Illness HPI Narrative: 57-year-old male with past medical history of HLD, HTN, presenting to the ED complaining of elevated BP at home over the past month, worsening today 198/88 with associated headache. 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 Reports compliance with antihypertensives currently takes 25 mg of hydralazine and 2.5 mg of amlodipine. Admits blood pressure medications have been adjusted multiple times, last changed a few months ago. Denies chest pain, shortness of breath, lightheadedness/dizziness, nausea/vomiting, numbness, tingling, weakness, blurred vision/double vision MD elicited complaint: headache Related Data Home Medications Medication Instructions Recorded Confirmed atorvastatin 10 mg tablet 10 mg PO DAILY 10/10/21 08/10/22 cholecalciferol (vitamin D3) 25 25 mcg PO QAM 10/10/21 08/10/22 mcg (1,000 unit) capsule amlodipine 10 mg tablet 10 mg PO QAM 10/23/22 levothyroxine 50 mcg tablet 50 mcg PO DAILY 10/23/22 hydralazine 10 mg tablet 10 mg PO BID 01/30/23 hydrochlorothiazide 25 mg tablet 25 mg PO QAM 01/30/23 losartan 50 mg tablet 50 mg PO QAM 01/30/23 prednisone 20 mg tablet 40 mg PO DAILY 01/30/23 Previous Rx's Medication Instructions Recorded magnesium oxide 400 mg PO BEDTIME 30 days #30 tabs 01/30/23 Allergies Allergy/AdvReac Type Severity Reaction Status Date / Time No Known Allergies Allergy Unverified 01/30/23 13:20 Review of Systems 2 Review of Systems: Constitutional: No Fever, No Chills, No Fatigue, No Malaise ENT/Mouth: No Ear Pain, No Hoarseness, No sore throat, No Rhinorrhea, No Swallowing Difficulty Eyes: No Eye Pain, No Swelling, No Redness, No Vision Changes Cardiovascular: No Chest Pain, No SOB Respiratory: No Cough, No Sputum, No Dyspnea Gastrointestinal: No Nausea, No Vomiting, No Diarrhea, No Constipation, No Abdominal pain Musculoskeletal: No joint pain, No Myalgias, No Joint Swelling Skin: No Skin Lesions, No rash Neuro: No Weakness, No Numbness, No Paresthesias, No Loss of Consciousness, No Dizziness, +Headache (resolved) Yes all other systems are reviewed and are negative Constitutional: Constitutional: Reports as per HPI Neurologic: Denies Abnormal speech present [facility] Past Medical History Attestation statement: The following information was validated with the patient. Source: old records reviewed Medical History Elevated cholesterol HTN (hypertension) Surgical History History of laparoscopic cholecystectomy (11/06/21) Hx of excision of mass Family History Family History Paternal Uncle Prostate cancer Social History Social History Alcohol intake: never Patient Tobacco Use Status: Never used Tobacco Advance Directives: No Advance Directives Information Provided: No Physical Exam 2 Vital Signs: Vital Signs: Last Vital Signs Temp 98.4 F 04/04/23 01:18 Pulse 77 04/04/23 01:18 Resp 16 04/04/23 01:18 BP 158/99 H 04/04/23 01:18 Pulse Ox 98 04/04/23 01:18 O2 Del Method Room Air 04/04/23 01:18 BMI result Body Mass Index 30.5 Const: General: cooperative, healthy appearing and no acute distress O rientation/consciousness: patient oriented x3 Limitations: no limitations HEENT: Head: Yes normal to inspection and Yes atraumatic Ears: hearing grossly normal bilaterally General nose exam: Normal external nose present Face and sinus: Yes normal facial exam Eyes: General: appearance normal, both eyes and all related structures P upils: Equal, round and reactive pupils present EOM: EOMs intact bilaterally Neck: Neck: Yes normal visual inspection and Yes no meningeal signs Resp: Effort & Inspection: normal respiratory effort and no respiratory distress Auscultation: clear to auscultation bilaterally Cardio: Rate: regular rate Heart sounds: S1 normal heart sound present and S2 normal heart sound present GI: Inspection: Yes normal to inspection Palpation (GI): Soft to palpation, nontender, no guarding and not rigid Skin: Rashes: no rashes Wounds: no wounds Neuro: General: patient oriented x3, gait normal, tone normal, moves all extremities, no meningeal signs, no focal motor deficits and CN's II-XI intact bilaterally Cranial nerves: Yes CN's II-XII intact bilaterally and Yes Equal, round and reactive pupils present Cognition (Neuro): normal cognition S peech: No Abnormal speech present Gait exam (Neuro): Normal gait present M otor exam (neuro): 5/5 motor strength present throughout Extrem: General: Yes normal to inspection Course Course Course Narrative: -blood pressure 158/99 >> discussed with patient and spouse at length with 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 Patient also mentions previous antihypertensives were affecting sexual drive. Discussed to mention this to his PCP. Results discussed with patient including worrisome signs and symptoms and strict return precautions, and when to return to the emergency department. They verbalized understanding and feel safe for discharge at this time. Medical Decision Making Medical Decision Making [facility] Narrative: 57-year-old male with past medical history of HLD, HTN, presenting to the ED complaining of elevated BP at home over the past month, worsening today 198/88 with associated headache. On exam hypertensive, initially 157/89, highest in the ED since arrival 172/88, symptoms resolved. Concern for chronic hypertension. Lower suspicion for hypertensive urgency/emergency or ACS or ICH Patient admits he has follow-up with his PCP this afternoon (04/04) Plan: EKG, labs, monitor vital/repeat BP. No need for head CT at this time Please refer to course for remaining clinical decision making, interpretation of labs/imaging results, and discussions with consultants and/or family members. Differential Diagnosis Differential Diagnoses: The differential diagnosis associated with the presentation includes As above Lab Data [facility] Lab Attestation statement: I reviewed the patient's lab results. 04/04/23 01:23 04/04/23 01:23 Labs: Lab Results 04/04/23 Range/Units 01: WBC 6.1 (4.8-10.8) X10*3/uL RBC 4.94 (4.60-5.80) X10*6/uL Hgb 14.3 (14.0-18.0) g/dl Hct 43.9 (42.0-52.0) % MCV 88.9 (80.0-98.0) fL MCH 28.9 (27.0-33.0) pg MCHC 32.6 (31.0-36.0) g/dl RDW 13.2 (11.0-16.0) % Plt Count 286 (160-400) X10*3/uL MPV 10.5 (9.4-12.4) fL Immature Gran % (Auto) 0.2 (0.0-0.4) % Neut % (Auto) 55.5 (45-73) % Lymph % (Auto) 33.1 (20-40) % Smith % (Auto) 5.6 (2-11) % Eos % (Auto) 4.4 H (0-4) % Baso % (Auto) 1.2 (0-2) % Lymph # (Auto) 2.0 (1.2-4.9) X10*3/uL Smith # (Auto) 0.3 (0.1-1.2) X10*3/uL Eos # (Auto) 0.3 (0.0-0.4) X10*3/uL Baso # (Auto) 0.1 (0.0-0.2) X10*3/uL Abs Immat Gran (auto) 0.01 (0.00-0.03) X10*3/uL Absolute Neuts (auto) 3.4 (2.0-8.3) x10*3/uL Absolute Nucleated RBC 0.000 (0.0-0.012) X10*3/uL Nucleated RBC % (auto) 0.0 (0.0-0.2) /100WBC Sodium 142 (135-145) mmol/L Potassium 3.8 (3.3-5.1) mmol/L Chloride 110 H (96-108) mmol/L Carbon Dioxide 25 (22-29) mmol/L Anion Gap 11 L (12-20) BUN 13 (9-16) mg/dL Creatinine 1.05 (0.5-1.4) mg/dL Estim Creat Clear Calc 70.0 Estimated GFR > 60 Random Glucose 91 (60-115) mg/dL Calcium 9.7 (8.4-10.2) mg/dL Troponin I High Sens < 2.7 (<3.5-35.0) ng/L Independent Interpretation I performed an independent interpretation of an: EKG (EKG normal sinus rhythm at a rate of 63. PA interval 156. QTC 411. No significant change when compared to prior.) Independent Historian Clinical information obtained from an independent historian. History obtained from or confirmed by: Spouse External Record Review External record reviewed: Inpatient record, Office record, Outpatient record, Prior outpatient labs, Prior outpatient radiology, Primary care record and Outside ED record Tests considered The following testing was considered but not selected: As above Chronic Conditions Patient?s care impacted by: Hypertension Discharge Plan Discharge Clinical Impression: Hypertension Patient Disposition: Home, Self-Care Instructions: Heart Healthy Diet (ED), Hypertension (ED) Additional Instructions: Your blood pressure improved while in the emergency department Your lab work and EKG were reassuring Please follow-up with her PCP tomorrow as planned Continue current medication regiment until you see your doctor Symptoms persist or worsening of constant worsening headache, chest pain/shortness of breath or lightheadedness/dizziness return to the ED Sweeney presi?n arterial mejor? mientras estuvo en el departamento de emergencias Sweeney an?lisis de laboratorio y sweeney electrocardiograma fueron tranquilizadores. Tania un seguimiento con sweeney PCP ma?roxana seg?n lo planeado. Contin?e con el r?gimen de medicaci?n actual hasta que consulte a sweeney m?dico. Los s?ntomas persisten o empeoran: dolor de fransisco que empeora constantemente, dolor en el pecho/dificultad para respirar o aturdimiento/mareos que regresan al servicio de urgencias. Prescriptions: No Action atorvastatin 10 mg tablet 10 mg PO DAILY cholecalciferol (vitamin D3) 25 mcg (1,000 unit) capsule 25 mcg PO QAM amlodipine 10 mg tablet 10 mg PO QAM levothyroxine 50 mcg tablet 50 mcg PO DAILY hydralazine 10 mg tablet 10 mg PO BID prednisone 20 mg tablet 40 mg PO DAILY hydrochlorothiazide 25 mg tablet 25 mg PO QAM losartan 50 mg tablet 50 mg PO QAM magnesium oxide 400 mg magnesium tablet 400 mg PO BEDTIME 30 Days Qty: 30 3RF Referrals: Pavel Kelly MD [Primary Care Provider] - 1 day (as scheduled) Print Language: Taiwanese
--- NOTE | 2023-04-04 01:13 | ECG_ITS ---
Test Reason : high bp Blood Pressure : / mmHG Vent. Rate : 063 BPM Atrial Rate : 063 BPM P-R Int : 156 ms QRS Dur : 092 ms QT Int : 402 ms P-R-T Axes : 042 -30 037 degrees QTc Int : 411 ms Normal sinus rhythm Left axis deviation Minimal voltage criteria for LVH, may be normal variant ( Fredis product ) Abnormal ECG When compared with ECG of 03-APR-2017 08:09, No significant change was found Referred By: Eliane Wilkinson Electronically Signed By:JAIME SAENZ
[2023-04-04 01:18] VITALS: BP 158/99; PULSE 77; RESP 16; TEMP 36.9; O2SAT 98
[2023-04-04 01:27] LABS: MANUAL DIFF FLAG NO
[2023-04-04 01:32] LABS: Basophils Absolute Auto 0.1 X10*3/uL (0.0-0.2); Basophils Percent Auto 1.2 % (0-2); Eosinophils Absolute Auto 0.3 X10*3/uL (0.0-0.4); Eosinophils Percent Auto 4.4 % (0-4); Hematocrit 43.9 % (42.0-52.0); Hemoglobin 14.3 g/dl (14.0-18.0); Imm Gran Abs Auto 0.01 X10*3/uL (0.00-0.03); Imm Gran Pct Auto 0.2 % (0.0-0.4); Lymphocytes Percent Auto 33.1 % (20-40); Mean Corpuscular HGB Conc 32.6 g/dl (31.0-36.0); Mean Corpuscular Hemoglobin 28.9 pg (27.0-33.0); Mean Corpuscular Volume 88.9 fL (80.0-98.0); Mean Platelet Volume 10.5 fL (9.4-12.4); Monocytes Absolute Auto 0.3 X10*3/uL (0.1-1.2); Monocytes Percent Auto 5.6 % (2-11); Neutrophils Absolute Auto 3.4 x10*3/uL (2.0-8.3); Neutrophils Percent Auto 55.5 % (45-73); Platelet Count 286 X10*3/uL (160-400); Red Blood Count 4.94 X10*6/uL (4.60-5.80); Red Cell Distribution Width 13.2 % (11.0-16.0); White Blood Count 6.1 X10*3/uL (4.8-10.8)
[2023-04-04 01:50] LABS: Anion Gap 11 (12-20); Blood Urea Nitrogen 13 mg/dL (9-16); Calcium 9.7 mg/dL (8.4-10.2); Carbon Dioxide 25 mmol/L (22-29); Chloride 110 mmol/L (96-108); Estimated Glomerular Filt Rate > 60; Glucose Random 91 mg/dL (60-115); Potassium 3.8 mmol/L (3.3-5.1); Sodium 142 mmol/L (135-145)
[2023-04-04 01:58] LABS: Troponin-I High Sensitivity < 2.7 ng/L (<3.5-35.0)
[2023-04-04 02:18] VITALS: BP 168/101; PULSE 65; RESP 16; TEMP 36.6; O2SAT 98
== END 2023-04-04 03:05 | disposition home or self-care (01) ==
PROVIDERS: Physician Assistant; Emergency Provider Emergency Medicine; PCP Internal Medicine Geriatric Medicine
DX: R51.9 Headache, unspecified (principal); R94.31 Abnormal electrocardiogram [ECG] [EKG]; I10 Essential (primary) hypertension; Z79.899 Other long term (current) drug therapy
CPT/HCPCS: 36415; 80048; 84484; 85025; 93005; 99283; 99284

== ENCOUNTER 2023-07-11 10:33 | Outpatient (REF) | payer MEDICAID, SELFPAY ==
[2023-07-11 14:03] LABS: Alanine Aminotransferase 41 U/L (0-40); Albumin Level 4.3 g/dL (3.5-5.0); Alkaline Phosphatase 98 U/L (39-117); Anion Gap 11 (12-20); Aspartate Amino Transferase 30 U/L (5-37); Bilirubin Direct 0.2 mg/dL (0.0-0.5); Bilirubin Total 0.4 mg/dL (0.0-1.0); Blood Urea Nitrogen 21 mg/dL (9-16); Calcium 9.6 mg/dL (8.4-10.2); Carbon Dioxide 27 mmol/L (22-29); Chloride 107 mmol/L (96-108); Cholesterol 204 mg/dL (<200); Estimated Glomerular Filt Rate > 60; Glucose Random 82 mg/dL (60-115); HDL Cholesterol 52 mg/dL (>40); LDL Cholesterol Calculated 140 mg/dL (<100); Sodium 141 mmol/L (135-145); Total Protein 7.6 g/dL (6.5-8.0); Triglycerides 60 mg/dL (<150)
[2023-07-11 15:29] LABS: Free T4 (Free Thyroxine) 0.87 ng/dL (0.71-1.85)
== END 2023-07-11 10:34 | disposition home or self-care (01) ==
LOC: HO.HHCL 10:33
PROVIDERS: Visit Provider Internal Medicine Geriatric Medicine
DX: I10 Essential (primary) hypertension (principal); E78.5 Hyperlipidemia, unspecified; E03.8 Other specified hypothyroidism
CPT/HCPCS: 36415; 80048; 80061; 80076; 84439; 84443

== ENCOUNTER 2023-07-12 09:20 | Outpatient (AMB) | payer MEDICAID, SELFPAY ==
--- NOTE | 2023-07-12 09:34 | MHC.OFFVIS ---
Intake Vital Signs 07/12/23 09:35 Height 5 ft 3 in Weight 185 lb 4 oz BMI 32.8 BP 162/90 H Blood Pressure Location Lt brachial Position Sitting Respiration 16 Pulse 75 Pulse Source Pulse Oximeter Pulse Oximetry (%) 95 Oxygen Delivery Method Room Air Intake Visit Reasons: 4m follow up Sleep Apnea-Confirmed Intake Note: Pt presents for a 4 month follow up for sleep apnea. 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 The home sleep study result was significant for a severe degree of sleep apnea with increased severity in supine sleep. The AHI was 27/hr, supine AHI was 47/hr and oxygen gurvinder was 71%. Pt underwent titration study and his breathing and oxygenation stabilized on CPAP [id number]. Pt started CPAP at [id number], however his residual AHI still high. The CPAP compliance and therapy response 06/12/23-07/11/23) reviewed. The usage days 100% and the average usage hours 6 hrs 30 min. The residual AHI was 22/hr. However, patient reports that he feels better, sleeps well with CPAP, having less morning headache, and daytime sleepiness has improved. [facility] Medical History Elevated cholesterol HTN (hypertension) Surgical History History of laparoscopic cholecystectomy (11/06/21) Hx of excision of mass Family History Paternal Uncle Prostate cancer Social History Alcohol intake: never Patient Tobacco Use Status: Never used Tobacco Review of Systems Const All systems reviewed & are unremarkable except as noted in HPI and below ENT Reports Normal hearing present Neuro Reports Normal hearing present Physical Exam Vital Signs: Last Vital Signs Pulse 75 07/12/23 09:35 Resp 16 07/12/23 09:35 BP 162/90 H 07/12/23 09:35 Pulse Ox 95 07/12/23 09:35 Oxygen Delivery Method Room Air 07/12/23 09:35 Const General: cooperative Nutritional Appearance: obese Orientation/consciousness: patient oriented x3 Limitations: language barrier Neck Neck: Yes full ROM and Yes supple Resp Effort & Inspection: normal respiratory effort and able to speak in complete sentences Neuro General: patient oriented x3, gait normal, moves all extremities and no focal motor deficits Cranial nerves: Yes Bilaterally intact EOM present, Yes Normal facial strength present, Yes Midline tongue present, Yes Symmetric palate elevation present, Yes Normal hearing present, Yes Ability to bilaterally rotate head present and Yes Ability to bilaterally elevate shoulders present Cognition (Neuro): normal cognition Gait exam (Neuro): Normal gait present Motor exam (neuro): 5/5 motor strength present throughout, Pronator motor function not present and no tremor noted Psych Appearance: grossly normal Mental Status: mental status grossly normal Speech and movement: Normal speech and movement present Affect: normal affect Attitude: cooperative Assessment & Plan Assessment & Plan (1) MARY (obstructive sleep apnea): Comment: Severe degree of sleep apnea with increased severity in supine sleep. AHI was 27/hr, supine AHI was 47/hr and oxygen gurvinder was 71% Code(s): G47.33 - Obstructive sleep apnea (adult) (pediatric) Plan CPAP pressure changed to APAP [id number]. Stressed compliance, use CPAP nightly and more than 4 hrs. Wt reduction advised. Medications: Refilled magnesium oxide 400 mg PO BEDTIME 30 days 30 tabs 3RF Coding Level of Care Code Est Pt Level 3 (08697) Diagnoses MARY (obstructive sleep apnea) G47.33
[2023-07-12 09:35] VITALS: BP 162/90; PULSE 75; RESP 16; O2SAT 95; BMI 32.8
== END 2023-07-12 09:56 | disposition home or self-care (01) ==
PROVIDERS: PCP Internal Medicine Geriatric Medicine; Visit Provider Nurse Practitioner Family
DX: G47.33 Obstructive sleep apnea (adult) (pediatric) (principal)
CPT/HCPCS: 99213

== ENCOUNTER → 2023-07-12 09:20 | Outpatient (BNVA) | payer MEDICAID, SELFPAY | PROVIDERS: PCP Internal Medicine Geriatric Medicine; Visit Provider Nurse Practitioner Family | DX: G47.33 Obstructive sleep apnea (adult) (pediatric) (principal) | CPT/HCPCS: 99212 ==

== ENCOUNTER 2023-08-05 11:08 | Outpatient (REF) | payer MEDICAID, SELFPAY ==
[2023-08-05 14:32] LABS: Anion Gap 11 (12-20); Blood Urea Nitrogen 26 mg/dL (9-16); Calcium 9.7 mg/dL (8.4-10.2); Carbon Dioxide 28 mmol/L (22-29); Chloride 105 mmol/L (96-108); Estimated Glomerular Filt Rate 53; Glucose Random 79 mg/dL (60-115); Potassium 4.1 mmol/L (3.3-5.1); Sodium 140 mmol/L (135-145)
== END 2023-08-05 11:09 | disposition home or self-care (01) ==
LOC: HO.HHCL 11:08
PROVIDERS: Visit Provider Internal Medicine Geriatric Medicine
DX: I10 Essential (primary) hypertension (principal)
CPT/HCPCS: 36415; 80048

== ENCOUNTER 2023-09-18 09:58 | Outpatient (AMB) | payer MEDICAID, SELFPAY ==
--- NOTE | 2023-09-18 10:07 | MHC.OFFVIS ---
Intake Vital Signs 09/18/23 10:12 Height 5 ft 3 in Weight 180 lb BMI 31.9 BP 131/80 Blood Pressure Location Lt brachial Position Sitting Pulse 68 Intake Visit Reasons: Colonoscopy Screening Intake Note: Patient 2nd pre colonoscopy screening. Patient cc: acid reflex on and off, denies any other GI issues Sustainability Executive Director Required: Yes Sustainability Executive Director Name: [facility] [facility] Allergies No Known Allergies Allergy (Verified 09/18/23 10:11) Medication List - Last Reconciled 09/18/23 by Mimi Roman PA-C amlodipine 10 mg PO QAM atorvastatin 10 mg PO DAILY cholecalciferol (vitamin D3) 25 mcg PO QAM hydralazine 10 mg PO BID hydrochlorothiazide 25 mg PO QAM levothyroxine 50 mcg PO DAILY losartan 50 mg PO QAM magnesium oxide 400 mg PO BEDTIME 30 days HPI HPI Comments History of Present Illness Details 57-year-old male referred for screening colonoscopy- hx diverticulitis- he has not had any recent episodes-once colonoscopy Appetite good-bowels are normal He does have MARY, reports that he uses CPAP faithfully every night he has not had any issues-he does follow-up as recommended No cardiac issues No nausea, vomiting hematemesis, hematochezia abdominal pain fever chills PFSH Medical History Elevated cholesterol HTN (hypertension) Surgical History History of laparoscopic cholecystectomy (11/06/21) Hx of excision of mass Family History Paternal Uncle Prostate cancer Social History (Updated 09/18/23 @ 10:21 by Mimi Roman PA-C) Household Members Other:: single Alcohol intake: never Patient Tobacco Use Status: Never used Tobacco Review of Systems Card Denies chest pain and Denies dyspnea Resp Denies dyspnea Physical Exam Vital Signs: Last Vital Signs Pulse 68 09/18/23 10:12 BP 131/80 09/18/23 10:12 BMI result Body Mass Index 31.9 Const General: cooperative, healthy appearing, comfortable and no acute distress Orientation/consciousness: patient oriented x3 Limitations: language barrier Eyes Sclerae: sclerae normal Resp Effort & Inspection: normal respiratory effort and able to speak in complete sentences Auscultation: clear to auscultation bilaterally, no wheezes and diminished lung sounds Cardio Rate: regular rate Rhythm: regular rhythm Heart sounds: S1 normal heart sound present and S2 normal heart sound present GI Inspection: Yes obesity Palpation (GI): Soft to palpation and nontender Auscultation: normal bowel sounds Skin General skin exam: no rashes or lesions noted Neuro General: patient oriented x3 Extrem General: Yes full ROM Psych Appearance: grossly normal and well kempt Mental Status: mental status grossly normal Speech and movement: Clear speech present Attitude: cooperative Thought process: Normal thought process present Thought content: Normal thought content present Assessment & Plan Assessment & Plan (1) History of diverticulitis: Comment: No recent episodes Code(s): Z87.19 - Personal history of other diseases of the digestive system Plan: Reviewed diverticulosis/diverticulitis ER protocol (2) Encounter for screening colonoscopy: Code(s): Z12.11 - Encounter for screening for malignant neoplasm of colon Plan: Colonoscopy, anesthesia consult MiraLax Gatorade (3) MARY (obstructive sleep apnea): Comment: Severe degree of sleep apnea with increased severity in supine sleep. AHI was 27/hr, supine AHI was 47/hr and oxygen gurvinder was 71% Code(s): G47.33 - Obstructive sleep apnea (adult) (pediatric) Plan anesthesia consult- severe sleep apnea- need clearance colon MG prep needs interp Orders: Orders Colonoscopy - GI Use Only Today Z12.11 - Encounter for screening for malignant neoplasm of colon Medications: New bisacodyl (Dulcolax (bisacodyl)) Day before procedure @ 12 noon Take 4 tablets by mouth followed by large glass of water 20 mg (4 x 5 mg) PO ONCE 1 day PRN 4 tabs 0RF colonoscopy prep Z12.11 - Encounter for screening for malignant neoplasm of colon polyethylene glycol 3350 (Miralax) Take as directed by mouth the day before your procedure. 238 grams PO ONCE 1 day 238 grams 0RF laxative effect Patient Instructions: 57-year-old male MARY-sleep device, compliant, history of diverticulosis/diverticulitis referred for colonoscopy-will schedule with anesthesia consult needs clearance Reviewed procedure, rare risks need for escorted due to anesthesia MG prep, reviewed school curriculum developer present, literature needs interp Encouraged to call with any questions or concerns Coding Level of Care Code New Pt Level 3 (77384) Diagnoses History of diverticulitis Z87.19 Encounter for screening colonoscopy Z12.11 MARY (obstructive sleep apnea) G47.33 Time Spent (min) 25 Comment Sustainability Executive DirectorKemal
[2023-09-18 10:12] VITALS: BP 131/80; PULSE 68; BMI 31.9
== END 2023-09-18 11:36 | disposition home or self-care (01) ==
PROVIDERS: PCP Internal Medicine Geriatric Medicine; Visit Provider Physician Assistant
DX: Z87.19 Personal history of other diseases of the digestive system (principal); Z12.11 Encounter for screening for malignant neoplasm of colon; G47.33 Obstructive sleep apnea (adult) (pediatric)
CPT/HCPCS: 99203

== ENCOUNTER → 2023-09-18 09:58 | Outpatient (BNVA) | payer MEDICAID, SELFPAY | PROVIDERS: PCP Internal Medicine Geriatric Medicine; Visit Provider Physician Assistant | DX: Z12.11 Encounter for screening for malignant neoplasm of colon (principal); G47.33 Obstructive sleep apnea (adult) (pediatric); Z87.19 Personal history of other diseases of the digestive system | CPT/HCPCS: 99212 ==

== ENCOUNTER 2023-10-24 10:29 | Outpatient (REF) | payer MEDICAID, SELFPAY ==
[2023-10-24 12:03] LABS: Anion Gap 11 (12-20); Blood Urea Nitrogen 24 mg/dL (9-16); Calcium 10.7 mg/dL (8.4-10.2); Carbon Dioxide 27 mmol/L (22-29); Chloride 106 mmol/L (96-108); Estimated Glomerular Filt Rate 47; Glucose Random 91 mg/dL (60-115); Potassium 3.8 mmol/L (3.3-5.1); Sodium 140 mmol/L (135-145)
[2023-10-24 12:22] LABS: TSH reflex Free T4 9.43 uIU/mL (0.32-4.0)
[2023-10-24 12:54] LABS: Free T4 (Free Thyroxine) 0.85 ng/dL (0.71-1.85)
== END 2023-10-24 10:30 | disposition home or self-care (01) ==
LOC: HO.HHCL 10:29
PROVIDERS: Nurse Practitioner Family; Visit Provider Internal Medicine Geriatric Medicine
DX: Z12.5 Encounter for screening for malignant neoplasm of prostate (principal); E03.8 Other specified hypothyroidism; R63.5 Abnormal weight gain; I10 Essential (primary) hypertension; Z87.898 Personal history of other specified conditions
CPT/HCPCS: 36415; 80048; 84153; 84439; 84443

== ENCOUNTER 2023-11-11 09:11 | Outpatient (AMB) | payer MEDICAID, SELFPAY ==
--- NOTE | 2023-11-11 09:20 | A.OFFVIS_ITS ---
Vital Signs 11/11/23 09:29 Height 5 ft 3 in Weight 191 lb 8 oz BMI 33.9 BP 132/80 Blood Pressure Location Lt brachial Position Sitting Pulse 72 Pulse Source Pulse Oximeter Pulse Oximetry (%) 94 Oxygen Delivery Method Room Air Intake Visit Reasons: 4 mo f/u MARY - Conf w/address Intake Note: Patient presents for 4 months f/u. constant stuffy nose and would like something for it. Allergies No Known Allergies Allergy (Verified 11/11/23 09:26) HPI Comments Details: 57 y/o male patient presents for follow up of MARY on CPAP. freelance interpreter/translator, Belle, [place] #[id number] utilized for this visit. The CPAP pressure was changed to APAP [id number]. The CPAP compliance and therapy response 08/02/23-10/30/23) reviewed. The usage days 100% and the average usage hours 7 hrs. The max pressure was 13.2 and the residual AHI was 4/hr. The home sleep study result was significant for a severe degree of sleep apnea with increased severity in supine sleep. The AHI was 27/hr, supine AHI was 47/hr and oxygen gurvinder was 71%. Pt underwent titration study and his breathing and oxygenation stabilized on CPAP [id number]. He was on CPAP at [id number], but the pressure was not effective, the residual AHI was 22/hr with CPAP at [id number]. Pt reports nasal congestion, uses saline spray, and it helps. Patient reports that he feels better, sleeps well with CPAP, having less morning headache, and daytime sleepiness has improved. [facility] Medical History Elevated cholesterol HTN (hypertension) Surgical History History of laparoscopic cholecystectomy (11/06/21) Hx of excision of mass Family History Paternal Uncle Prostate cancer Social History Household Members Other:: single Alcohol intake: never Patient Tobacco Use Status: Never used Tobacco Review of Systems Const All systems reviewed & are unremarkable except as noted in HPI and below ENT Reports Normal hearing present Neuro Reports Normal hearing present Physical Exam Vital Signs: Last Vital Signs Pulse 72 11/11/23 09:29 BP 132/80 11/11/23 09:29 Pulse Ox 94 11/11/23 09:29 Oxygen Delivery Method Room Air 11/11/23 09:29 BMI result Body Mass Index 33.9 Const General: cooperative Nutritional Appearance: obese Orientation/consciousness: patient oriented x3 Limitations: language barrier Neck Neck: Yes full ROM and Yes supple Resp Effort & Inspection: normal respiratory effort and able to speak in complete sentences Neuro General: patient oriented x3, gait normal, moves all extremities and no focal motor deficits Cranial nerves: Yes Bilaterally intact EOM present, Yes Normal facial strength present, Yes Midline tongue present, Yes Symmetric palate elevation present, Yes Normal hearing present, Yes Ability to bilaterally rotate head present and Yes Ability to bilaterally elevate shoulders present Cognition (Neuro): normal cognition Gait exam (Neuro): Normal gait present Motor exam (neuro): 5/5 motor strength present throughout, Pronator motor function not present and no tremor noted Psych Appearance: grossly normal Mental Status: mental status grossly normal Speech and movement: Normal speech and movement present Affect: normal affect Attitude: cooperative Assessment & Plan Assessment & Plan (1) MARY (obstructive sleep apnea): Comment: Severe degree of sleep apnea with increased severity in supine sleep. AHI was 27/hr, supine AHI was 47/hr and oxygen gurvinder was 71% Code(s): G47.33 - Obstructive sleep apnea (adult) (pediatric) Category: Medical Plan Continue to use APAP [id number] as patient experiences good clinical effects, sleep quality and daytime sleepiness has improved. Stressed compliance, use CPAP nightly and more than 4 hrs. Wt reduction advised. Coding Level of Care Code Est Pt Level 3 (30608) Diagnoses MARY (obstructive sleep apnea) G47.33
[2023-11-11 09:29] VITALS: BP 132/80; PULSE 72; O2SAT 94; BMI 33.9
== END 2023-11-11 09:45 | disposition home or self-care (01) ==
PROVIDERS: PCP Internal Medicine Geriatric Medicine; Visit Provider Nurse Practitioner Family
DX: G47.33 Obstructive sleep apnea (adult) (pediatric) (principal)
CPT/HCPCS: 99213

== ENCOUNTER → 2023-11-11 09:11 | Outpatient (BNVA) | payer MEDICAID, SELFPAY | PROVIDERS: PCP Internal Medicine Geriatric Medicine; Visit Provider Nurse Practitioner Family | DX: G47.33 Obstructive sleep apnea (adult) (pediatric) (principal); Z99.89 Dependence on other enabling machines and devices | CPT/HCPCS: 99212 ==

== ENCOUNTER 2023-11-22 12:06 | Emergency (ER) | payer MEDICAID, SELFPAY ==
--- NOTE | 2023-11-22 | ECG_ITS ---
Test Reason : Chest pain Blood Pressure : / mmHG Vent. Rate : 067 BPM Atrial Rate : 067 BPM P-R Int : 160 ms QRS Dur : 104 ms QT Int : 432 ms P-R-T Axes : 037 -30 046 degrees QTc Int : 456 ms Normal sinus rhythm Left axis deviation Minimal voltage criteria for LVH, may be normal variant ( [place] product ) Nonspecific T wave abnormality Abnormal ECG When compared with ECG of 22-NOV-2023 12:08, No significant change was found Referred By: Zacarias Jerry Electronically Signed By:Zacarias Jerry
--- NOTE | 2023-11-22 | CA_ITS ---
Acquisition Time: 2023-11-22 15:12:07 Total Exercise Time: 00:07:00 Test Indications: cp Medications: see h Protocol: BRIAN Max HR: 169 BPM 104% of Pred: 161 BPM Max BP: 176/068 mmHG Max Work Load: 8.5 METS Exercise stress test exercise 7 min of Brian protocol achieving 104% MPHR, with mild SOB, no chest discomfort, with isolated PVCs, with resting HTN and normotensive response to exercise, without EKG chnanges. Test reviewed with Rosalino Marie Referred By: Zacarias Jerry Overread By: Vivian Navarro
--- NOTE | ~2023-11-22 | XR_ITS ---
EXAMINATION: XR CHEST CLINICAL INFORMATION: Chest pain. COMPARISON: Chest radiograph 04/11/2012. TECHNIQUE: 2 views of the chest were obtained. FINDINGS: Normal appearance of the cardiomediastinal silhouette. No focal airspace opacities, pleural effusion or pneumothorax. No acute osseous findings. Visualized upper abdomen is within normal limits. Right upper quadrant surgical clips. XR/XR chest 2V IMPRESSION: No acute cardiopulmonary findings.
--- NOTE | 2023-11-22 12:13 | ED_ITS ---
HPI - General Adult General Chief complaint: Chest Pain Stated complaint: CP Time Seen by Provider: 11/22/23 13:02 Source: patient Mode of arrival: ambulatory Limitations: no limitations History of Present Illness HPI narrative: This is a 37-year-old man with past medical history of hypertension, hyperlipidemia, hypothyroidism, MARY on CPAP, history of status post cholecystectomy who presents for evaluation of chest pain. Patient states he developed chest pain this morning while at home. He states pain radiated to his left shoulder. He states this lasts minutes. He states associated nausea without emesis. He states no right-sided pain, back pain or abdominal pain. He states no pain at this time. He states pain comes and goes. He states no dyspnea. He states no leg pain or swelling. He states recent cold symptoms, cough, hemoptysis, sputum production or difficulty breathing. Related Data Home Medications ?Medication ?Instructions ?Recorded ?Confirmed atorvastatin 10 mg tablet 10 mg PO DAILY 10/10/21 08/10/22 cholecalciferol (vitamin D3) 25 25 mcg PO QAM 10/10/21 08/10/22 mcg (1,000 unit) capsule amlodipine 10 mg tablet 10 mg PO QAM 10/23/22 levothyroxine 50 mcg tablet 50 mcg PO DAILY 10/23/22 hydralazine 10 mg tablet 10 mg PO BID 01/30/23 hydrochlorothiazide 25 mg tablet 25 mg PO QAM 01/30/23 losartan 50 mg tablet 50 mg PO QAM 01/30/23 Previous Rx's ?Medication ?Instructions ?Recorded magnesium oxide 400 mg PO BEDTIME 30 days #30 tabs 07/12/23 bisacodyl 5 mg tablet,delayed 20 mg (4 x 5 mg) PO ONCE PRN 09/18/23 release (Dulcolax (bisacodyl)) colonoscopy prep 1 day #4 tabs polyethylene glycol 3350 17 238 g PO ONCE laxative effect 1 09/18/23 gram/dose oral powder (Miralax) day #238 grams Allergies Allergy/AdvReac Type Severity Reaction Status Date / Time No Known Allergies Allergy Verified 11/22/23 12:17 Review of Systems 2 Review of Systems: ROS as per HPI [facility] Past Medical History Medical History Elevated cholesterol HTN (hypertension) Surgical History History of laparoscopic cholecystectomy (11/06/21) Hx of excision of mass Family History Family History Paternal Uncle Prostate cancer Social History Social History Household Members Other:: single Alcohol intake: never Patient Tobacco Use Status: Never used Tobacco Advance Directives: No Advance Directives Information Provided: Yes Physical Exam ED Vital Signs: Vital Signs - 24 hr 11/22/23 12:14 11/22/23 13:02 Temperature 97.6 F 98.2 F Pulse Rate 83 69 Respiratory Rate 18 15 Blood Pressure 159/85 H 149/84 H Pulse Oximetry 96 94 Oxygen Delivery Method Room Air Room Air BMI result Body Mass Index 33.3 Gen: NAD, AOx3 HEENT: NCAT, EOMI, normal conjunctiva CV: RRR, no murmur appreciated, no lower extremity pitting edema, 2+ bilateral radial pulses Pulm: CTAB, no increased work of breathing GI: Soft, NTND, no rebound, guarding or rigidity MSK: No calf edema/erythema/tenderness to palpation Skin: no skin changes to chest wall Neuro: Grossly non focal Course Course Course Narrative: This is a rapid medical exam performed by Alessia Menjivar NP: Additional HPI, ROS, PE not included below will be deferred to primary provider. Patient is a 57-year-old male with history of HTN, MARY, hypogonadism, biliary colic presenting to the ED with complaint of left sided chest pain radiating to L shoulder and upper back, intermittent. Reports nausea and diarrhea this morning, denies vomiting. Allergy to unknown BP med wiht rxn of angioedema. Plan: EKG, labs, CXR Medical Decision Making Medical Decision Making MDM Narrative: Differential diagnosis includes, but is not limited to chest pain, acute coronary syndrome, pneumothorax. Patient is afebrile and hemodynamically stable on room air. Exam is benign and reassuring. I reviewed and interpreted labs, which are noncontributory. Of note, patient is at baseline creatinine of 1.42 (previous 1.52 to October 24, 2023). Initial troponin is negative. I reviewed and interpreted EKG as above, which demonstrates sinus rhythm at 81 beats per minute, left axis deviation, MA interval 158, QRS interval 102, QTC 436, T-wave inversions lead V1-V2, biphasic T-waves lead V3-V6, no STEMI (compared to prior EKG April 04, 2023 anterolateral T-wave changes are new) Patient's chest pain is somewhat atypical, but given patient's age, risk factors and new non-specific T wave changes case is discussed with Bullet Casting Operator, Dr. Jerry, who states he will have a stress test here in the ED. He states low suspicion for acute coronary syndrome given atypical history of chest pain. I reviewed and interpreted the patient's chest x-ray which demonstrates no visible, acute radiographic findings such as pneumothorax, focal consolidation/infiltrate or widened mediastinum. I am notified by Dr. Jerry via [employer] that patient's stress test is normal and that he may be discharged home. Further, 2nd troponin is negative effectively ruling out ACS. Based on the history, physical exam and diagnostic testing the patient's pretest study for disease is very unlikely the following: Aortic dissection, pulmonary embolism, pericarditis, myocarditis, esophageal rupture or other emergent intrathoracic process and I otherwise have very low suspicion for these as etiologies of his chest pain. On re-examination, patient is well-appearing and in no acute distress. ?Patient states symptoms have resolved. ?Etiology of symptoms unclear, but there is no indication for further emergent evaluation in this otherwise well-appearing patient as above. ?Patient is provided written and verbal instructions, educational materials, recommendations for outpatient follow-up, strict return precautions and teach back is performed. ?Patient states understanding and agreement with plan of care. ?Patient is discharged home in stable and improved condition. Admission/Observation Consideration of admission/observation: Escalation of care including admission/observation considered Lab Data MDM Lab Attestation statement: I reviewed the patient's lab results. 11/22/23 12:27 11/22/23 12:27 Labs: Lab Results 11/22/23 11/22/23 Range/Units 12:27 14:58 WBC 7.1 (4.8-10.8) X10*3/uL RBC 4.68 (4.60-5.80) X10*6/uL Hgb 14.4 (14.0-18.0) g/dl Hct 41.7 L (42.0-52.0) % MCV 89.1 (80.0-98.0) fL MCH 30.8 (27.0-33.0) pg MCHC 34.5 (31.0-36.0) g/dl RDW 12.5 (11.0-16.0) % Plt Count 312 (160-400) X10*3/uL MPV 10.2 (9.4-12.4) fL Immature Gran % (Auto) 0.3 (0.0-0.4) % Neut % (Auto) 63.9 (45-73) % Lymph % (Auto) 26.7 (20-40) % [place] % (Auto) 7.3 (2-11) % Eos % (Auto) 1.0 (0-4) % Baso % (Auto) 0.8 (0-2) % Lymph # (Auto) 1.9 (1.2-4.9) X10*3/uL [place] # (Auto) 0.5 (0.1-1.2) X10*3/uL Eos # (Auto) 0.1 (0.0-0.4) X10*3/uL Baso # (Auto) 0.1 (0.0-0.2) X10*3/uL Abs Immat Gran (auto) 0.02 (0.00-0.03) X10*3/uL Absolute Neuts (auto) 4.5 (2.0-8.3) x10*3/uL Absolute Nucleated RBC 0.000 (0.0-0.012) X10*3/uL Nucleated RBC % (auto) 0.0 (0.0-0.2) /100WBC PT 11.5 (11.1-13.3) SEC INR 0.9 (0.9-1.1) Sodium 139 (135-145) mmol/L Potassium 3.4 (3.3-5.1) mmol/L Chloride 102 (96-108) mmol/L Carbon Dioxide 26 (22-29) mmol/L Anion Gap 14 (12-20) BUN 17 H (9-16) mg/dL Creatinine 1.42 H (0.5-1.4) mg/dL Estim Creat Clear Calc 54.1 Estimated GFR 51 Random Glucose 85 (60-115) mg/dL Calcium 10.1 (8.4-10.2) mg/dL Total Bilirubin 0.4 (0.0-1.0) mg/dL AST 30 (5-37) U/L ALT 57 H (0-40) U/L Alkaline Phosphatase 89 (39-117) U/L Troponin I High Sens < 2.7 < 2.7 (<3.5-35.0) ng/L Total Protein 7.7 (6.5-8.0) g/dL Albumin 4.3 (3.5-5.0) g/dL Influenza Type A (PCR) NEGATIVE (Negative) Influenza Type B (PCR) NEGATIVE (Negative) RSV RNA Qual (PCR) NEGATIVE (Negative) SARS-CoV-2 RNA (RT-PCR) NEGATIVE (Negative) Independent Interpretation I performed an independent interpretation of an: EKG and Plain X-Ray Interpretation: EKG demonstrates sinus rhythm at 81 beats per minute, left axis deviation, MA interval 158, QRS interval 102, QTC 436, T-wave inversions lead V1-V2, biphasic T-waves lead V3-V6, no STEMI (compared to prior EKG April 04, 2023 anterolateral T-wave changes are new). I reviewed and interpreted the patient's chest x-ray which demonstrates no visible, acute radiographic findings such as pneumothorax, focal consolidation/infiltrate or widened mediastinum. Radiology Impression Radiologist Impression: XR/XR chest 2V IMPRESSION: No acute cardiopulmonary findings. Dictated By: Liana Ovalle Signed By: <Electronically signed by Liana Ovalle in OV> 11/22/23 1339 Discharge Plan Discharge Clinical Impression: Chest pain Qualifiers: Chest pain type: unspecified Qualified Code(s): R07.9 - Chest pain, unspecified Patient Disposition: Home, Self-Care Instructions: Chest Pain (ED) Additional Instructions: You were evaluated for chest pain. Your blood work, electrocardiogram and stress test were normal. Please follow up with your primary care doctor in the next 5-7 days. Please return to the emergency room if you develop any new or worsening symptoms including, but not limited to chest pain or difficulty breathing. Le evaluaron por dolor en el pecho. Sweeney an?lisis de henrry, electrocardiograma y prueba de esfuerzo fueron normales. Tania un seguimiento con sweeney m?dico de atenci?n primaria en los pr?ximos 5 a 7 d?as. Regrese a la zoe de emergencias si presenta alg?n s?ntoma nuevo o que empeora, incluidos, entre otros, dolor en el pecho o dificultad para respirar. Prescriptions: No Action atorvastatin 10 mg tablet 10 mg PO DAILY cholecalciferol (vitamin D3) 25 mcg (1,000 unit) capsule 25 mcg PO QAM amlodipine 10 mg tablet 10 mg PO QAM levothyroxine 50 mcg tablet 50 mcg PO DAILY bisacodyl [Dulcolax (bisacodyl)] 5 mg tablet,delayed release (DR/EC) 20 mg PO ONCE PRN (Reason: colonoscopy prep) 1 Days Qty: 4 0RF Rx Instructions: Day before procedure @ 12 noon Take 4 tablets by mouth followed by large glass of water polyethylene glycol 3350 [Miralax] 17 gram/dose powder 238 g PO ONCE 1 Days Qty: 238 0RF Rx Instructions: Take as directed by mouth the day before your procedure. hydralazine 10 mg tablet 10 mg PO BID hydrochlorothiazide 25 mg tablet 25 mg PO QAM losartan 50 mg tablet 50 mg PO QAM magnesium oxide 400 mg magnesium tablet 400 mg PO BEDTIME 30 Days Qty: 30 3RF Print Language: Japanese
[2023-11-22 12:14] VITALS: BP 159/85; PULSE 83; RESP 18; TEMP 36.4; O2SAT 96; BMI 33.3
--- NOTE | 2023-11-22 12:14 | ECG_ITS ---
Test Reason : cp Blood Pressure : / mmHG Vent. Rate : 081 BPM Atrial Rate : 081 BPM P-R Int : 158 ms QRS Dur : 102 ms QT Int : 376 ms P-R-T Axes : 053 -35 064 degrees QTc Int : 436 ms Normal sinus rhythm Left axis deviation Minimal voltage criteria for LVH, may be normal variant ( [place] product ) Nonspecific T wave abnormality Abnormal ECG When compared with ECG of 04-APR-2023 01:30, Non-specific change in ST segment in Anterior leads Nonspecific T wave abnormality now evident in Anterolateral leads Referred By: Carolina Menjivar Electronically Signed By:Zacarias Jerry
[2023-11-22 12:33] LABS: MANUAL DIFF FLAG NO
[2023-11-22 12:39] LABS: Basophils Absolute Auto 0.1 X10*3/uL (0.0-0.2); Basophils Percent Auto 0.8 % (0-2); Eosinophils Absolute Auto 0.1 X10*3/uL (0.0-0.4); Hematocrit 41.7 % (42.0-52.0); Hemoglobin 14.4 g/dl (14.0-18.0); Imm Gran Abs Auto 0.02 X10*3/uL (0.00-0.03); Imm Gran Pct Auto 0.3 % (0.0-0.4); Lymphocytes Absolute Auto 1.9 X10*3/uL (1.2-4.9); Lymphocytes Percent Auto 26.7 % (20-40); Mean Corpuscular HGB Conc 34.5 g/dl (31.0-36.0); Mean Corpuscular Hemoglobin 30.8 pg (27.0-33.0); Mean Corpuscular Volume 89.1 fL (80.0-98.0); Mean Platelet Volume 10.2 fL (9.4-12.4); Monocytes Absolute Auto 0.5 X10*3/uL (0.1-1.2); Monocytes Percent Auto 7.3 % (2-11); Neutrophils Absolute Auto 4.5 x10*3/uL (2.0-8.3); Neutrophils Percent Auto 63.9 % (45-73); Platelet Count 312 X10*3/uL (160-400); Red Blood Count 4.68 X10*6/uL (4.60-5.80); Red Cell Distribution Width 12.5 % (11.0-16.0); White Blood Count 7.1 X10*3/uL (4.8-10.8)
[2023-11-22 12:52] LABS: Alanine Aminotransferase 57 U/L (0-40); Albumin Level 4.3 g/dL (3.5-5.0); Alkaline Phosphatase 89 U/L (39-117); Anion Gap 14 (12-20); Aspartate Amino Transferase 30 U/L (5-37); Bilirubin Total 0.4 mg/dL (0.0-1.0); Blood Urea Nitrogen 17 mg/dL (9-16); Calcium 10.1 mg/dL (8.4-10.2); Carbon Dioxide 26 mmol/L (22-29); Chloride 102 mmol/L (96-108); Creatinine Clr Calc Pharmacy 54.1; Estimated Glomerular Filt Rate 51; Glucose Random 85 mg/dL (60-115); INTERNATIONAL NORM RATIO 0.9 (0.9-1.1); Potassium 3.4 mmol/L (3.3-5.1); Prothrombin Time 11.5 SEC (11.1-13.3); Sodium 139 mmol/L (135-145); Total Protein 7.7 g/dL (6.5-8.0)
[2023-11-22 12:57] LABS: Troponin-I High Sensitivity < 2.7 ng/L (<3.5-35.0)
[2023-11-22 13:02] VITALS: BP 149/84; PULSE 69; RESP 15; TEMP 36.8; O2SAT 94
[2023-11-22 13:13] LABS: Influenza A PCR NEGATIVE (Negative); Influenza B PCR NEGATIVE (Negative); Resp Syncy Virus RNA Qual PCR NEGATIVE (Negative); SARS COV2 PCR INHOUSE NEGATIVE (Negative)
--- NOTE | 2023-11-22 14:31 | PM.CNCAR ---
History of Present Illness History of Present Illness Date of Service: 11/22/23 Requesting physician: Michele Ortega Chief complaint: CP Narrative: 57-year-old gentleman with HTN, HLD and MARY presenting with CP. He had somewhat sharp CP this morning lasting for few minutes. He said he had 2 other episodes after that lasting for few mins each. he has been pain free since then. He has had somehwat poorly controlled HTN till recently when he started using CPAP. He has FH of stroke. Nonsmoker. Non diabetic. EKG and labs reviewed. He has nonspecific T-wave changes in precordial leads. [facility] Past Medical History Medical History Elevated cholesterol HTN (hypertension) Family History Family History Paternal Uncle Prostate cancer Surgical History Surgical History History of laparoscopic cholecystectomy (11/06/21) Hx of excision of mass Social History Social History Household Members Other:: single Alcohol intake: never Patient Tobacco Use Status: Never used Tobacco Advance Directives: No Advance Directives Information Provided: Yes Meds Allergies Allergy/AdvReac Type Severity Reaction Status Date / Time No Known Allergies Allergy Verified 11/22/23 12:17 Home Medications ?Medication ?Instructions ?Recorded ?Confirmed ?Last Taken ?Type atorvastatin 10 mg tablet 10 mg PO DAILY 10/10/21 08/10/22 Unknown History cholecalciferol (vitamin D3) 25 25 mcg PO QAM 10/10/21 08/10/22 Unknown History mcg (1,000 unit) capsule amlodipine 10 mg tablet 10 mg PO QAM 10/23/22 Unknown History levothyroxine 50 mcg tablet 50 mcg PO DAILY 10/23/22 Unknown History hydralazine 10 mg tablet 10 mg PO BID 01/30/23 Unknown History hydrochlorothiazide 25 mg tablet 25 mg PO QAM 01/30/23 Unknown History losartan 50 mg tablet 50 mg PO QAM 01/30/23 Unknown History Physical Exam Vital Signs: Vital Signs: Last Vital Signs Temp 98.2 F 11/22/23 13:02 Pulse 69 11/22/23 13:02 Resp 15 05/10/24 13:02 BP 149/84 H 11/22/23 13:02 Pulse Ox 94 11/22/23 13:02 O2 Del Method Room Air 11/22/23 13:02 BMI result Body Mass Index 33.3 GENERAL APPEARANCE: in no acute distress, pleasant. NECK: no carotid bruit, no jugular venous distention. SKIN: no suspicious lesions, warm and dry. HEART: no murmurs, regular rate and rhythm. LUNGS: clear to auscultation bilaterally. ABDOMEN: soft, nontender. EXTREMITIES: no edema. PERIPHERAL PULSES: equal. NEUROLOGIC: No gross deficits, AAO X 3 Objective Labs and Meds 11/22/23 12:27 11/22/23 12:27 Lab results: Laboratory Results - last 24 hr 11/22/23 12:27 WBC 7.1 RBC 4.68 Hgb 14.4 Hct 41.7 L MCV 89.1 MCH 30.8 MCHC 34.5 RDW 12.5 Plt Count 312 MPV 10.2 Immature Gran % (Auto) 0.3 Neut % (Auto) 63.9 Lymph % (Auto) 26.7 [place] % (Auto) 7.3 Eos % (Auto) 1.0 Baso % (Auto) 0.8 Lymph # (Auto) 1.9 [place] # (Auto) 0.5 Eos # (Auto) 0.1 Baso # (Auto) 0.1 Abs Immat Gran (auto) 0.02 Absolute Neuts (auto) 4.5 Absolute Nucleated RBC 0.000 Nucleated RBC % (auto) 0.0 PT 11.5 INR 0.9 Sodium 139 Potassium 3.4 Chloride 102 Carbon Dioxide 26 Anion Gap 14 BUN 17 H Creatinine 1.42 H Estim Creat Clear Calc 54.1 Estimated GFR 51 Random Glucose 85 Calcium 10.1 Total Bilirubin 0.4 AST 30 ALT 57 H Alkaline Phosphatase 89 Troponin I High Sens < 2.7 Total Protein 7.7 Albumin 4.3 Influenza Type A (PCR) NEGATIVE Influenza Type B (PCR) NEGATIVE RSV RNA Qual (PCR) NEGATIVE SARS-CoV-2 RNA (RT-PCR) NEGATIVE Imaging Radiologist's impression: Impressions Chest X-Ray 11/22/23 12:32 IMPRESSION: No acute cardiopulmonary findings. Assessment and Plan (1) Chest pain: Status: Acute Plan Pleasant 57 year gentleman who is presenting for chest pain. He has background history of hypertension, hyperlipidemia and obstructive sleep apnea. He had uncontrolled hypertension till recently when he started using the CPAP. Chest pain is quite atypical. His troponins negative. EKG has nonspecific T-wave changes. I have discussed with him about doing an exercise stress test. He is agreeable and we will try to arrange it today as it is Saturday and I do prefer that he does not have to stay in-house for a stress test for the weekend. Thank you for allowing me to participate in the care of your patient. Please feel free to contact me if you have any questions. Procedures Date of Service Date of Service: 11/22/23
[2023-11-22 15:27] LABS: Troponin-I High Sensitivity < 2.7 ng/L (<3.5-35.0)
--- NOTE | 2023-11-22 16:49 | PC.NURSE ---
assumed care of pt at 1500. pt a&o x4, calm, and cooperative. guyanese speaking only. pt received stress test and back in room. pt denies pain michael. awaiting results. rr even/unlabored. call vang within reach. plan of care ongoing.
[2023-11-22 17:47] VITALS: BP 147/96; PULSE 88; RESP 16; O2SAT 96
[2023-11-22 17:50] VITALS: BP 147/96; PULSE 88; RESP 16; TEMP -17.7; TEMP 0; O2SAT 96
== END 2023-11-22 17:51 | disposition home or self-care (01) ==
PROVIDERS: Registered Nurse Emergency; Emergency Provider Emergency Medicine
DX: R07.89 Other chest pain (principal); I10 Essential (primary) hypertension; R11.0 Nausea; Z79.899 Other long term (current) drug therapy; Z11.52 Encounter for screening for COVID-19; Z20.822 Contact with and (suspected) exposure to COVID-19
CPT/HCPCS: 0241U; 36415; 71046; 80053; 84484; 85025; 85610; 93005; 93017; 99285

== ENCOUNTER → 2023-11-22 13:12 | Outpatient (BNV) | payer MEDICAID, SELFPAY | PROVIDERS: Emergency Provider Emergency Medicine; Visit Provider Internal Medicine Cardiovascular Disease | DX: R07.9 Chest pain, unspecified (principal) | CPT/HCPCS: 93010; 93016; 93018; 99223 ==

== ENCOUNTER 2023-12-10 09:13 | Outpatient (REF) | payer MEDICAID, SELFPAY ==
[2023-12-10 12:28] LABS: Alanine Aminotransferase 50 U/L (0-40); Albumin Level 4.1 g/dL (3.5-5.0); Alkaline Phosphatase 85 U/L (39-117); Anion Gap 11 (12-20); Aspartate Amino Transferase 29 U/L (5-37); Bilirubin Total 0.5 mg/dL (0.0-1.0); Blood Urea Nitrogen 16 mg/dL (9-16); Calcium 9.4 mg/dL (8.4-10.2); Carbon Dioxide 29 mmol/L (22-29); Chloride 104 mmol/L (96-108); Estimated Glomerular Filt Rate 56; Glucose Random 90 mg/dL (60-115); Magnesium 2.2 mg/dL (1.6-2.6); Potassium 4.3 mmol/L (3.3-5.1); Sodium 140 mmol/L (135-145); TSH reflex Free T4 3.74 uIU/mL (0.32-4.0); Total Protein 7.3 g/dL (6.5-8.0)
== END 2023-12-10 09:14 | disposition home or self-care (01) ==
LOC: HO.HHCL 09:13
PROVIDERS: Visit Provider Internal Medicine
DX: R53.83 Other fatigue (principal)
CPT/HCPCS: 36415; 80053; 83735; 84100; 84443

== ENCOUNTER 2024-01-17 09:19 | Day surgery (SDC) | payer MEDICAID, SELFPAY ==
[2024-01-17 10:21] VITALS: BMI 31.9
[2024-01-17 10:25] VITALS: BP 148/79; PULSE 71; RESP 18; TEMP 36.1; O2SAT 96; BMI 31.9
[2024-01-17] MEDS: Lactated Ringers 1,000 ML 50 ML IVCONT (11:41)
--- NOTE | 2024-01-17 11:50 | MHC.SHP ---
Pre-Procedural Eval Section A - 24 Hr Update-Section A only Date of Service: 01/17/24 Section B - Complete if H&P > 30 days Chief Complaint: Colon cancer screening, hx of diverticulitis Relevant Family History (Specify if Yes): No Relevant Social History: None Present Medications: see Short Stay Collaborative assessment Medical History: Significant History (Elevated cholesterol HTN (hypertension)) History of Previous Operations: Relevant previous surgery/procedure and date(s) (History of laparoscopic cholecystectomy (11/06/21) Hx of excision of mass) Allergies: Allergies Allergy/AdvReac Type Severity Reaction Status Date / Time No Known Allergies Allergy Verified 11/22/23 12:17 Review of Systems Sugical H&P ROS: Negative: Constitution, Cardiovascular, Respiratory and Gastrointestinal Exam Surgical H&P Exam: Normal: Heart, Normal: Lungs, Normal: Extremities and Normal: Abdomen Plan Diagnosis/Plan: Unchanged I have reviewed the history and physical and performed a pertinent physical examination on my patient. No changes have occurred unless specified. Time Spent With Patient Time: Total time managing care of this patient today ____ minutes.
--- NOTE | 2024-01-17 12:32 | HO.ANESPROP2 ---
HPI - Anesthesia Eval Consult details Narrative: for colonoscopy PMFSH Active Problems Active Problems: All Active Problems Chest pain (Acute) Encounter for screening colonoscopy (Acute) History of diverticulitis (Acute) MARY (obstructive sleep apnea) (Acute) HTN (hypertension) (Acute) Excessive daytime sleepiness (Acute) Snoring (Acute) Hypogonadism male (Acute) History of elevated PSA (Acute) Low libido (Acute) Erectile dysfunction (Acute) Biliary colic (Acute) Past Medical History Medical History Elevated cholesterol HTN (hypertension) Family History Family History Paternal Uncle Prostate cancer Family history of problems with anesthesia: No Surgical History Surgical History History of laparoscopic cholecystectomy (11/06/21) Hx of excision of mass History of Problems with Anesthesia: No Social History Social History Household Members Other:: single Alcohol intake: never Patient Tobacco Use Status: Never used Tobacco Use of substances other than those prescribed or required for medical reasons: No Are you DNR?: No Advance Directives: No Advance Directives Information Provided: Yes Meds Allergies Allergy/AdvReac Type Severity Reaction Status Date / Time No Known Allergies Allergy Verified 11/22/23 12:17 Active Medications: Current Medications Lactated Ringer's (Lr) 1,000 mls @ 50 mls/hr IVCONT .Q20H KAMILAH Last Admin: 01/17/24 11:41 Dose: 50 mls/hr Home Medications ?Medication ?Instructions ?Recorded ?Confirmed ?Last Taken ?Type atorvastatin 10 mg tablet 10 mg PO DAILY 10/10/21 01/17/24 Unknown History cholecalciferol (vitamin D3) 25 25 mcg PO QAM 10/10/21 01/17/24 Unknown History mcg (1,000 unit) capsule amlodipine 10 mg tablet 10 mg PO QAM 10/23/22 01/17/24 Unknown History levothyroxine 50 mcg tablet 50 mcg PO DAILY 10/23/22 01/17/24 Unknown History hydralazine 10 mg tablet 10 mg PO BID 01/30/23 01/17/24 Unknown History hydrochlorothiazide 25 mg tablet 25 mg PO QAM 01/30/23 01/17/24 Unknown History losartan 50 mg tablet 50 mg PO QAM 01/30/23 01/17/24 Unknown History Exam Height,Weight and Vital Signs: Height 5 ft 3 in Weight 81.647 kg Last Vital Signs Temp 96.9 F 01/17/24 10:25 Pulse 71 01/17/24 10:25 Resp 18 01/17/24 10:25 BP 148/79 H 01/17/24 10:25 Pulse Ox 96 01/17/24 10:25 O2 Del Method Room Air 01/17/24 10:25 Airway Mallampati Class: II TM Dist: <=3cm Neck ROM: Full Loose/Missing/Broken Teeth: No Heart: ok Lungs: ok Assessment and Plan Assessment Anesthesia Assessment: Anesthesia Plan Discussed Final Anesthetic Review Family History of Problems with Anesthesia: No History of Problems with Anesthesia: No NPO: Yes ASA Class: III Final Preanesthetic Review: No Changes in Pt Med Stat, Meds/Allgs Chart Reviewed, Consent Obtained/Reviewed and Anes Risks/Benef Reviewed Patient Risk: Intermediate Procedure Risk: Low Anesthetic Plan Anesthetic Plan: MAC: and Agree w/ Assess. and Plan Disposition: Standard PACU
--- NOTE | 2024-01-17 13:31 | P.OPN-COLO_ITS ---
Colonoscopy Operative Note Operative Note Date of Service: 01/17/24 Narrative: COLONOSCOPY TILL CECUM WITH BIOPSIES AND SNARE POLYPECTOMY Pre-op diagnosis: Colon cancer screening, history of diverticulitis. Post-op diagnosis:? Colon polyps, Diverticulosis, hemorrhoids Endoscopist:? Sarita Laguna MD Anesthesia:?MAC Consent: Indications for the procedure and potential complications of bleeding, perforation, reaction to medications and missed diagnosis were discussed with the patient and informed consent was obtained. Instrument: Olympus PCF H 190 L variable stiffness pediatric colonoscope Monitoring: Vital signs and clinical assessment, intermittent blood pressure monitoring, continuous EKG monitoring, Pulse oximetry and Carbon Dioxide monitoring were done throughout the procedure. Please see anesthesia flowsheet. Colon withdrawl time was 28 minutes. Procedure: The patient was placed in the left lateral decubitis position and pre-procedure medications were administered. After a digital rectal examination of the ano-rectum, the video colonoscope was inserted into the rectum and advanced through the colon to the cecum. The colonoscope was slowly withdrawn in a retrograde panoramic fashion and the colon mucosa was carefully examined including a retroflexed view of the rectum. Findings and interventions are described below. Procedure Difficulty: without difficulty Findings: Terminal Ileum: Not evaluated Cecum: A 3-4 mm sessile polyp - removed with a cold snare Ascending Colon: A 7-8 mm sessile polyp - removed with a cold snare. Scattered moderate diverticulosis throughout the entire colon Transverse Colon: Scattered moderate diverticulosis throughout the entire colon Descending Colon: Scattered moderate diverticulosis throughout the entire colon Sigmoid Colon: A few 2-4 mm diminutive appearing polyp - one polyp was removed with a cold biopsy. Severe diverticulosis with luminal narrowing Rectum: Normal Ano-rectum: Moderate internal hemorrhoids Colon preparation: Good after copious irrigation. [place] Bowel Preparation Scale Right colon; 2 Transverse colon: 2 Left colon; 2 (0 = Unprepared colon segment with mucosa not seen due to solid stool that cannot be cleared. 1 = Portion of mucosa of the colon segment seen, but other areas of the colon segment not well seen due to staining, residual stool and/or opaque liquid. 2 = Minor amount of residual staining, small fragments of stool and/or opaque liquid, but mucosa of colon segment seen well. 3 = Entire mucosa of colon segment seen well with no residual staining, small fragments of stool or opaque liquid) Impression and Post Procedure Diagnosis: Colonoscopy Findings: Three small polyps were removed Moderate to severe diverticulosis seen in the entire colon Moderate hemorrhoids on retroflexed exam. Plan: I will send a letter with biopsy results. Pt has a FU appointment on 03/26/24 with DANIEL Leon, Repeat Colonoscopy in 3-5 years if polyps are adenomatous and 10 year if polyps are hyperplastic. Above findings were reviewed with the patient and relevant handouts were given and the discharge area.
[2024-01-17 13:34] VITALS: BP 105/57; PULSE 67; RESP 18; TEMP 36.1; O2SAT 93
[2024-01-17 13:49] VITALS: BP 125/83; PULSE 68; RESP 14; TEMP 36.2; O2SAT 98
== END 2024-01-17 14:19 | disposition home or self-care (01) ==
PROVIDERS: Visit Provider Internal Medicine Gastroenterology
PROC: 0DJD8ZZ Inspection of Lower Intestinal Tract, Via Natural or Artificial Opening Endoscopic (ICD-10-PCS; CPT 45378; principal; 2024-01-17 11:50)
DX: Z12.11 Encounter for screening for malignant neoplasm of colon (principal); Z87.19 Personal history of other diseases of the digestive system; K63.5 Polyp of colon; K57.30 Diverticulosis of large intestine without perforation or abscess without bleeding; K64.8 Other hemorrhoids; I10 Essential (primary) hypertension; E78.00 Pure hypercholesterolemia, unspecified; G47.33 Obstructive sleep apnea (adult) (pediatric); Z79.899 Other long term (current) drug therapy; Z99.89 Dependence on other enabling machines and devices; Z90.49 Acquired absence of other specified parts of digestive tract
CPT/HCPCS: 45385; 45380; 88305; J2704

== ENCOUNTER → 2024-01-17 09:19 | Outpatient (BNV) | payer MEDICAID, SELFPAY | PROVIDERS: Visit Provider Internal Medicine Gastroenterology | DX: Z12.11 Encounter for screening for malignant neoplasm of colon (principal); K63.5 Polyp of colon; K57.90 Diverticulosis of intestine, part unspecified, without perforation or abscess without bleeding; K64.8 Other hemorrhoids | CPT/HCPCS: 45380; 45385 ==

== ENCOUNTER 2024-02-17 08:51 | Outpatient (REF) | payer MEDICAID, SELFPAY ==
[2024-02-17 11:58] LABS: Alanine Aminotransferase 39 U/L (0-40); Albumin Level 4.3 g/dL (3.5-5.0); Alkaline Phosphatase 76 U/L (39-117); Aspartate Amino Transferase 27 U/L (5-37); Bilirubin Direct 0.2 mg/dL (0.0-0.5); Bilirubin Total 0.7 mg/dL (0.0-1.0); Total Protein 7.4 g/dL (6.5-8.0)
[2024-02-17 12:05] LABS: HBS Num1 0.41 mIU/mL (0-7.99); HBc Num1 0.07 S/CO (0.00-0.79); HBsAGNum1 0.31 S/CO (0.00-0.99); HIV AB/AG Nonreactive (Nonreactive); HIV Num 1 0.04 S/CO (0.00-0.99); Hepatitis A Antibody IgM 0.37 Index (0-0.79); Hepatitis B Core Antibody Nonreactive (Nonreactive); Hepatitis B Surface Antigen Negative (Negative); ~HepC Num1 0.08 S/CO (0.00-0.79); ~Hepatitis A Antibody IgM Nonreactive (Nonreactive); ~Hepatitis B Surface Antibody NONREACTIVE (Nonreactive); ~Hepatitis C Antibody Nonreactive (Nonreactive)
[2024-02-17 12:18] LABS: Vitamin D 25-OH Total 42.2 ng/mL (>30)
[2024-02-19 12:19] LABS: Anti Nuclear Antibody Screen NEGATIVE (NEGATIVE)
[2024-02-21 21:24] LABS: Testosterone, Free 31.5 pg/mL (35.0-155.0); Testosterone, Total 182 ng/dL (250-1100)
== END 2024-02-17 08:52 | disposition home or self-care (01) ==
LOC: HO.HHCL 08:51
PROVIDERS: Nurse Practitioner Family; Visit Provider Internal Medicine
DX: R74.01 Elevation of levels of liver transaminase levels (principal); E29.1 Testicular hypofunction; R68.82 Decreased libido; N52.9 Male erectile dysfunction, unspecified
CPT/HCPCS: 36415; 80076; 82306; 84402; 84403; 86038; 86704; 86706; 86709; 86803; 87340; 87389

== ENCOUNTER 2024-04-16 15:59 | Outpatient (AMB) | payer MEDICAID, SELFPAY ==
--- NOTE | 2024-04-16 16:01 | A.OFFVIS_ITS ---
Intake Visit Reasons: lab results(set) Intake Note: Patient is present for 2mo follow up/labs/low libido/erectile dysfunction PSA: 3.60 Testosterone:182; Free Testosterone: 31.5 Urology Medications: tadalafil Blood Thinner: none Machine Wiper Required: Yes Machine Wiper Name: ROSIEJALYNBRANDEN REINALDO Accompanied by: Self / Same As Patient Allergies No Known Allergies Allergy (Verified 04/16/24 16:22) Medication List - Last Reconciled 04/16/24 by ZEUS Gillette- amlodipine 10 mg PO QAM atorvastatin 10 mg PO DAILY cholecalciferol (vitamin D3) 25 mcg PO QAM hydralazine 10 mg PO BID hydrochlorothiazide 25 mg PO QAM levothyroxine 50 mcg PO DAILY losartan 50 mg PO QAM HPI Comments Details: Feliz is a pleasant 58-year-old Greek-speaking male patient of Dr. Kelly. He has a past medical history of hyperlipidemia and hypertension. He is being followed up via telehealth for his erectile dysfunction. In discussion with the patient today he continues to report issues maintaining his erections. Recent testosterone results reviewed with the patient today. Testosterone: 10/04 152, 02/03 222, 03/07 182 Free testosterone: 10/04 24.5, 03/07 31.5 PSA: 10/04 2.9, 11/05 3.6 We discussed at length hypogonadism; potential causes of hypogonadism as well as further treatment options. He discusses feeling erectile dysfunction is due to previous prostate procedure he had in the past. Patient reports seeing Dr. Robin in the past for elevated PSA in which she had a prostate biopsy that was negative. He reports also having a transurethral resection of his prostate due to symptoms of benign prostatic hyperplasia. Discussed trial of low-dose Cialis 5 mg daily versus testosterone replacement. Discussed risks and benefits of both interventions. Discussed importance of sleeping 7-8 hours per night, healthy diet, and exercise in correlation of doing so with erectile dysfunction as well as overall health and well-being. He otherwise denies urinary urgency, urinary frequency, incontinence, nocturia, hematuria, dysuria, foul smelling urine, changes to urinary stream, flank pain, fever, and or chills. [facility] Medical History Elevated cholesterol HTN (hypertension) Surgical History History of laparoscopic cholecystectomy (11/06/21) Hx of excision of mass Family History Paternal Uncle Prostate cancer Social History Household Members Other:: single Alcohol intake: never Patient Tobacco Use Status: Never used Tobacco Review of Systems Const All systems reviewed & are unremarkable except as noted in HPI and below Reports no additional complaints Eyes Reports no additional complaints ENT Reports no additional complaints Card Reports as per HPI Resp Reports no additional complaints GI Reports no additional complaints Reports as per HPI Musc Reports no additional complaints Neuro Reports no additional complaints Psych Reports no additional complaints Endo Reports no additional complaints Preston/Lymph Reports no additional complaints Aller/Immun Reports no additional complaints Physical Exam Const General: cooperative Orientation/consciousness: patient oriented x3 Resp Effort & Inspection: able to speak in complete sentences Neuro General: patient oriented x3 Psych Attitude: cooperative Thought process: Normal thought process present Thought content: Normal thought content present Insight: Fair insight present (Psych) Judgement: Fair judgement present (Psych) Telehealth Telehealth Telehealth Platform: Telephone Location of provider rendering services: practice address Location of patient: address on file Patient Identification confirmed using: Name, : Yes Telehealth method: voice only Patient verbally consented to treatment: Yes Patient verbally consented to billing insurance company: Yes Patient informed of any privacy concerns related to visit: Yes Minutes spent on Phone/Video with Pt.: 25 Assessment & Plan Assessment & Plan (1) Hypogonadism male: Code(s): E29.1 - Testicular hypofunction Category: Medical (2) History of elevated PSA: Code(s): Z87.898 - Personal history of other specified conditions Category: Medical (3) Low libido: Code(s): R68.82 - Decreased libido Category: Medical (4) Erectile dysfunction: Code(s): N52.9 - Male erectile dysfunction, unspecified Category: Medical Plan Recent labs reviewed with the patient today; as noted above. We discussed at length potential causes of hypogonadism, ED, and low libido We discussed further treatment options and risks and benefits of these treatment options. All questions were answered. Start Cialis 5 mg daily as discussed and prescribed. We discussed lifestyle modifications to assist with hypogonadism, ED, and low libido. Patient denies any bothersome urinary issues or concerns. He reports be happy with current voiding parameters. Will obtain PSA and testosterone in 4 months. Follow-up in 4 months with labs to be completed prior; or sooner with any issues, concerns, and or questions. Orders: Orders Testosterone, Free/Total 4 Months E11.69 - Type 2 diabetes mellitus with other specified complication, N52.1 - Erectile dysfunction due to diseases classified elsewhere Basic Metabolic Panel 4 Months I10 - Essential (primary) hypertension Prostate Specific Antigen 4 Months Z87.898 - Personal history of other specified conditions Medications: New tadalafil (Cialis) [facility] DR33 [id number] 5 mg PO DAILY 90 days 90 tabs 2RF Patient Instructions: The patient had an opportunity to ask questions regarding the treatment plan. All questions were answered. Physical exam, labs, and imaging were discussed and reviewed in detail. As well as risks, benefits, and discussion of treatment choices. No major barriers to understanding were identified. The patient expressed understanding and agreement with the above treatment plan. The patient was made aware they should contact our office by phone for worsening of their current condition, the appearance of new symptoms, or with any questions or concerns. Compliance is encouraged with any medications and follow up testing that is ordered. It is a privilege to be allowed the opportunity to participate in? your urological care.? Again, if you have any questions or concerns If you have any questions or concerns please do not hesitate to contact me. The office is [phone]. This note is constructed using voice recognition software. While every effort has been made to ensure accuracy drafter detail errors may have been included. Yours sincerely, CORA Gillette Coding Level of Care Code Tele Est Pt Level 4 (71661) Diagnoses Hypogonadism male E29.1 History of elevated PSA Z87.898 Low libido R68.82 Erectile dysfunction N52.9 Time Spent (min) 25
== END 2024-04-16 16:30 | disposition home or self-care (01) ==
LOC: HO.HUSH 15:59
PROVIDERS: Visit Provider Nurse Practitioner Family
DX: E29.1 Testicular hypofunction (principal); Z87.898 Personal history of other specified conditions; R68.82 Decreased libido; N52.9 Male erectile dysfunction, unspecified
CPT/HCPCS: 99214

== ENCOUNTER → 2024-04-16 15:59 | Outpatient (BNVA) | payer MEDICAID, SELFPAY | PROVIDERS: Visit Provider Nurse Practitioner Family ==

== ENCOUNTER 2024-06-23 19:37 | Emergency (ER) | payer MEDICAID, SELFPAY ==
[2024-06-23 19:47] VITALS: BP 130/80; PULSE 96; RESP 20; TEMP 36.2; O2SAT 98; BMI 28.3
--- NOTE | 2024-06-23 19:52 | ED.MALEGU ---
HPI - Male Genitourinary General Stated complaint: difficulty urinating Related Data Home Medications ?Medication ?Instructions ?Recorded ?Confirmed atorvastatin 10 mg tablet 10 mg PO DAILY 10/10/21 04/16/24 cholecalciferol (vitamin D3) 25 25 mcg PO QAM 10/10/21 04/16/24 mcg (1,000 unit) capsule amlodipine 10 mg tablet 10 mg PO QAM 10/23/22 04/16/24 levothyroxine 50 mcg tablet 50 mcg PO DAILY 10/23/22 04/16/24 hydralazine 10 mg tablet 10 mg PO BID 01/30/23 04/16/24 hydrochlorothiazide 25 mg tablet 25 mg PO QAM 01/30/23 04/16/24 losartan 50 mg tablet 50 mg PO QAM 01/30/23 04/16/24 Previous Rx's ?Medication ?Instructions ?Recorded tadalafil 5 mg tablet (Cialis) 5 mg PO DAILY 90 days #90 tabs 04/16/24 Allergies Allergy/AdvReac Type Severity Reaction Status Date / Time No Known Allergies Allergy Verified 06/23/24 19:48 [facility] Past Medical History Medical History Elevated cholesterol HTN (hypertension) Surgical History History of laparoscopic cholecystectomy (11/06/21) Hx of excision of mass Family History Family History Paternal Uncle Prostate cancer Social History Social History Household Members Other:: single Alcohol intake: never Patient Tobacco Use Status: Never used Tobacco Course Course Course Narrative: This is an RME: Additional HPI, ROS, PE not included below will be deferred to primary provider. RME assessment and note performed by: Estrella Mayen PA-C This is a [id number]-rzl-male, with a hx of HTN, MARY, who presents to the ER with complaints of urinary retention. Reports he is voiding in small amounts. Patient also reporting that he is feeling constipated. Had a bowel movement yesterday. No history of IVDA. He also reports back pain. No saddle anesthesia. Plan: Labs, UA, postvoid urine Discharge Plan Discharge Prescriptions: No Action atorvastatin 10 mg tablet 10 mg PO DAILY cholecalciferol (vitamin D3) 25 mcg (1,000 unit) capsule 25 mcg PO QAM amlodipine 10 mg tablet 10 mg PO QAM levothyroxine 50 mcg tablet 50 mcg PO DAILY hydralazine 10 mg tablet 10 mg PO BID hydrochlorothiazide 25 mg tablet 25 mg PO QAM losartan 50 mg tablet 50 mg PO QAM tadalafil [Cialis] 5 mg tablet 5 mg PO DAILY 90 Days Qty: 90 2RF Rx Instructions: [facility] Group [facility] [address]33 [id number] Print Language: Trinidadian
[2024-06-23 20:24] LABS: MANUAL DIFF FLAG NO
[2024-06-23 20:29] LABS: Basophils Absolute Auto 0.1 X10*3/uL (0.0-0.2); Basophils Percent Auto 0.6 % (0-2); Eosinophils Absolute Auto 0.1 X10*3/uL (0.0-0.4); Eosinophils Percent Auto 1.4 % (0-4); Hematocrit 41.4 % (42.0-52.0); Hemoglobin 14.1 g/dl (14.0-18.0); Imm Gran Abs Auto 0.03 X10*3/uL (0.00-0.03); Imm Gran Pct Auto 0.3 % (0.0-0.4); Lymphocytes Absolute Auto 1.6 X10*3/uL (1.2-4.9); Lymphocytes Percent Auto 16.6 % (20-40); Mean Corpuscular HGB Conc 34.1 g/dl (31.0-36.0); Mean Corpuscular Hemoglobin 30.1 pg (27.0-33.0); Mean Corpuscular Volume 88.3 fL (80.0-98.0); Mean Platelet Volume 10.1 fL (9.4-12.4); Monocytes Absolute Auto 0.6 X10*3/uL (0.1-1.2); Monocytes Percent Auto 6.2 % (2-11); Neutrophils Absolute Auto 7.2 x10*3/uL (2.0-8.3); Neutrophils Percent Auto 74.9 % (45-73); Platelet Count 301 X10*3/uL (160-400); Red Blood Count 4.69 X10*6/uL (4.60-5.80); Red Cell Distribution Width 12.6 % (11.0-16.0); White Blood Count 9.6 X10*3/uL (4.8-10.8)
[2024-06-23 20:44] LABS: Alanine Aminotransferase 42 U/L (0-40); Albumin Level 4.2 g/dL (3.5-5.0); Alkaline Phosphatase 85 U/L (39-117); Anion Gap 15 (12-20); Aspartate Amino Transferase 33 U/L (5-37); Bilirubin Direct 0.1 mg/dL (0.0-0.5); Bilirubin Total 0.3 mg/dL (0.0-1.0); Blood Urea Nitrogen 23 mg/dL (9-16); Carbon Dioxide 26 mmol/L (22-29); Chloride 103 mmol/L (96-108); Creatinine Clr Calc Pharmacy 53.1; Estimated Glomerular Filt Rate 55; Glucose Random 129 mg/dL (60-115); Lipase 27 U/L (8-78); Magnesium 2.2 mg/dL (1.6-2.6); Potassium 3.6 mmol/L (3.3-5.1); Sodium 140 mmol/L (135-145); Total Protein 7.6 g/dL (6.5-8.0)
[2024-06-23 21:45] LABS: Appearance Urine Clear; Color Urine Yellow; Glucose Urine UA Negative (Negative); Leukocyte Esterase Urine Negative (Negative); Nitrite Urine Negative (Negative); Urine Blood Negative (Negative); Urine Ketones Negative (Negative); Urine Protein Negative (Neg-Trace)
== END 2024-06-24 01:01 | disposition left against medical advice (07) ==
PROVIDERS: Physician Assistant Medical; Emergency Provider Internal Medicine
DX: K59.00 Constipation, unspecified (principal); Z53.21 Procedure and treatment not carried out due to patient leaving prior to being seen by health care provider
CPT/HCPCS: 36415; 80048; 80076; 81003; 83690; 83735; 85025; 99281; 99282

== ENCOUNTER 2024-07-17 09:39 | Outpatient (REF) | payer MEDICAID, SELFPAY ==
[2024-07-17 11:52] LABS: Anion Gap 10 (12-20); Blood Urea Nitrogen 29 mg/dL (9-16); Calcium 9.7 mg/dL (8.4-10.2); Carbon Dioxide 30 mmol/L (22-29); Chloride 104 mmol/L (96-108); Cholesterol 233 mg/dL (<200); Estimated Glomerular Filt Rate 41; Glucose Random 91 mg/dL (60-115); HDL Cholesterol 52 mg/dL (>40); LDL Cholesterol Calculated 163 mg/dL (<100); Potassium 4.4 mmol/L (3.3-5.1); Sodium 140 mmol/L (135-145); Triglycerides 90 mg/dL (<150)
[2024-07-17 12:10] LABS: Prostate Specific Antigen 3.34 ng/mL (<0.05-4.0)
[2024-07-23 17:33] LABS: Testosterone, Free 55.2 pg/mL (35.0-155.0); Testosterone, Total 323 ng/dL (250-1100)
== END 2024-07-17 09:40 | disposition home or self-care (01) ==
LOC: HO.HHCL 09:39
PROVIDERS: Visit Provider Nurse Practitioner Family
DX: E78.49 Other hyperlipidemia (principal); Z87.898 Personal history of other specified conditions; N52.1 Erectile dysfunction due to diseases classified elsewhere; E11.69 Type 2 diabetes mellitus with other specified complication; I10 Essential (primary) hypertension
CPT/HCPCS: 36415; 80048; 80061; 84153; 84402; 84403

== ENCOUNTER 2024-08-05 12:11 | Outpatient (AMB) | payer MEDICAID, SELFPAY ==
--- NOTE | 2024-08-05 12:16 | MHC.OFFVIS ---
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 Kelly. He has a past medical history of hyperlipidemia and hypertension. He is being followed up via telehealth for his erectile dysfunction. In discussion with the patient today he continues to report issues maintaining his erections. Recent testosterone results reviewed with the patient today. Testosterone: 10/04 152, 02/03 222, 03/07 182, 08/08 323 Free testosterone: 10/04 24.5, 03/07 31.5, 08/08 55.2 PSA: 10/04 2.9, 11/05 3.6, 08/08 3.3 We discussed at length hypogonadism; potential causes of hypogonadism as well as further treatment options. During last office visit recommendations were made for low-dose Cialis however in discussion with the patient today he reports having not picked it up from the pharmacy. We discussed increase in testosterone levles without intervention. He continues to discuss issues with maintaining his erections. We discussed importance of lifestyle modifications to assist with ED. We discussed importance of sleeping 7-8 hours per night, healthy diet, and exercise in correlation of doing so with erectile dysfunction as well as overall health and well-being. He otherwise denies urinary urgency, urinary frequency, incontinence, nocturia, hematuria, dysuria, foul smelling urine, changes to urinary stream, flank pain, fever, and or chills. [facility] Medical History Elevated cholesterol HTN (hypertension) Surgical History History of laparoscopic cholecystectomy (11/06/21) Hx of excision of mass Family History Paternal Uncle Prostate cancer Social History Household Members Other:: single Alcohol intake: never Patient Tobacco Use Status: Never used Tobacco Review of Systems Const All systems reviewed & are unremarkable except as noted in HPI and below Reports no additional complaints Eyes Reports no additional complaints ENT Reports no additional complaints Card Reports as per HPI Resp Reports no additional complaints GI Reports no additional complaints Reports as per HPI Musc Reports no additional complaints Neuro Reports no additional complaints Psych Reports no additional complaints Endo Reports no additional complaints Preston/Lymph Reports no additional complaints Aller/Immun Reports no additional complaints Physical Exam Const General: cooperative Orientation/consciousness: patient oriented x3 Resp Effort & Inspection: able to speak in complete sentences Neuro General: patient oriented x3 Psych Attitude: cooperative Thought process: Normal thought process present Thought content: Normal thought content present Insight: Fair insight present (Psych) Judgement: Fair judgement present (Psych) Telehealth Telehealth Telehealth Platform: Telephone Location of provider rendering services: practice address Location of patient: address on file Patient Identification confirmed using: Name, : Yes Telehealth method: voice only Patient verbally consented to treatment: Yes Patient verbally consented to billing insurance company: Yes Patient informed of any privacy concerns related to visit: Yes Minutes spent on Phone/Video with Pt.: 22 Assessment & Plan Assessment & Plan (1) Hypogonadism male: Code(s): E29.1 - Testicular hypofunction Category: Medical (2) History of elevated PSA: Code(s): Z87.898 - Personal history of other specified conditions Category: Medical (3) Low libido: Code(s): R68.82 - Decreased libido Category: Medical (4) Erectile dysfunction: Code(s): N52.9 - Male erectile dysfunction, unspecified Category: Medical Plan Recent labs reviewed with the patient today; as noted above. We discussed at length potential causes of hypogonadism, ED, and low libido We discussed further treatment options and risks and benefits of these treatment options. All questions were answered. Start Cialis 5 mg daily as discussed and prescribed. We discussed lifestyle modifications to assist with hypogonadism, ED, and low libido. Patient denies any bothersome urinary issues or concerns. He reports be happy with current voiding parameters. Will obtain PSA and testosterone in 4 months. Follow-up in 4 months with labs to be completed prior; or sooner with any issues, concerns, and or questions. Orders: Orders Prostate Specific Antigen 4 Months E29.1 - Testicular hypofunction, N52.9 - Male erectile dysfunction, unspecified Testosterone, Free/Total 4 Months E29.1 - Testicular hypofunction, N52.9 - Male erectile dysfunction, unspecified Medications: Refilled tadalafil (Cialis) [facility] DR33 [id number] 5 mg PO DAILY 90 tabs 2RF 90 days Patient Instructions: The patient had an opportunity to ask questions regarding the treatment plan. All questions were answered. Physical exam, labs, and imaging were discussed and reviewed in detail. As well as risks, benefits, and discussion of treatment choices. No major barriers to understanding were identified. The patient expressed understanding and agreement with the above treatment plan. The patient was made aware they should contact our office by phone for worsening of their current condition, the appearance of new symptoms, or with any questions or concerns. Compliance is encouraged with any medications and follow up testing that is ordered. It is a privilege to be allowed the opportunity to participate in? your urological care.? Again, if you have any questions or concerns If you have any questions or concerns please do not hesitate to contact me. The office is [phone]. This note is constructed using voice recognition software. While every effort has been made to ensure accuracy medicaid service coordinator errors may have been included. Yours sincerely, CORA Gillette Coding Level of Care Code Tele Est Pt Level 3 (05730) Complex EM visit Add On G2211 Diagnoses Hypogonadism male E29.1 History of elevated PSA Z87.898 Low libido R68.82 Erectile dysfunction N52.9
--- OUTSIDE RECORDS SUMMARY | 2024-08-05 14:07 | XMS_ITS | Encounter Summary ---
Author Organization [employer] [facility] Address [address] [place] [address] Care Team Providers Care Accounts Executive Name Role Phone Name, Pavel FRIEDMAN Primary Care Provider Yaneth Parks PharmD Unavailable [phone] Encounter Details Date Type Department Care Team ([facility] st Contact Info) Description 12/12/2023 Orders Only [facility] [address], [place] [phone] Michelle Campos MD [address], [place] [phone] Elevated transaminase level (Primary Dx) Social History Tobacco Use Types Packs/Day Years Used Date Smoking Tobacco: Never Passive Smoke Exposure: Never Smokeless Tobacco: Never Alcohol Use Standard Drinks/Week Comments Not Currently 0 (1 standard drink = 0.6 oz pur e alcohol) Depression Answer Date Recorded Patient Health Questionnaire-9 Score 2 07/19/2022 Housing Stability Answer Date Recorded What is your housing situation today? I have kushal nova 05/01/[address] you li ve. Do you have problems with any of the following? None of the above 05/01/2023 Food Insecurity Answer Date Recorded Within the past 12 months, y ou worried that your food would run out before you got money to buy more: Never True 05/01/2023 Within the past 12 months,th e food you bought just didn't last and you didn't have enough money to get more: Never True Transportation Answer Date Recorded In the past 12 months, has l ack of transportation kept you from medical appts, meetings, work or from getting things needed for daily living? No 05/01/2023 Utilities Answer Date Recorded In the past 12 months, has t he electric, gas, oil or water company threatened to shut off services in your home? No 05/01/2023 Depression Answer Date Recorded Patient Health Questionnaire-2 Score 0 07/19/2022 Sex and Gender Information Value Date Recorded Sex Assigned at Male 05/14/2022 10:18 AM EDT Legal Sex Male 10:18 AM EDT Gender Identity Male 05/14/2022 10:18 AM EDT Sexual Orientation Don't know 05/14/2022 10 :18 AM EDT documented as of this encounter Plan of Treatment Upcoming Encounters Date Type Department Care Team (Late st Contact Info) Description 09/03/2024 3:30 PM EST Medication Management [facility] [address] [place] [address] AkhiliaYaneth, PharmD [address] [place] [address] 09/16/2024 2:30 PM EST Office Visit [facility] [address] [place] [address] Name, MD Pavel [address] [place] [address] 10/29/2024 3:00 PM EDT Office Visit [facility] [address] [place] [address] Micah, Rafaela, OD [address] [place] [address] documented as of this encounter Goals Goal Patient Goal Type Associated Problems Recent Progress Patient-Stated? Author Record your blood pressure once per day Blood Pressure On track( 024 11:27 AM EDT) No Puia, Yaneth, PharmD Blood Pressure < 140/90 Blood Pressure 122/72(2024 3:35 PM EST) No Puia, Yaneth, PharmD Patient will adhere to medication regimen General On track( 024 11:27 AM EDT) No Puia, Yaneth, PharmD documented as of this encounter Procedures Procedure Name Priority Date/Time Associated Diagnosis Comments VITAMIN D,25-OH,TOTAL,IA Routine 02/17/2024 8:55 AM EDT Elevated transaminase level HEPATITIS PANEL, GENERAL Routine 02/17/2024 8:55 AM EDT Elevated transaminase level HIV 1/2 ANTIGEN/ANTIBODY, FOURTH GENERATION W/RFL Routine 02/17/2024 8:55 AM EDT Elevated transaminase level MICHELLE SCREEN, IFA, W/REFL TITER AND PATTERN Routine 02/17/2024 8:55 AM EDT Elevated transaminase level HEPATIC FUNCTION PANEL Routine 02/17/2024 8:55 AM EDT Elevated transaminase level documented in this encounter Results * MICHELLE Screen,IFA, with Reflex to Titer and Pattern (02/17/2024 8:55 AM EDT) Anti Nuclear Antibody Screen NEGATIVE NEGATIVE [facility] Comment:MICHELLE IFA is a first l ine screen for detecting thepresence of up to approximately 150 autoantibodies invarious autoimmune diseases. A negative MICHELLE IFA resultsuggests an MICHELLE-associated autoimmune disease is notpresent at this time, but is not definitive. If thereis high clinical suspicion for Sjogren's syndrome,testing for anti-SS-A/Ro antibody should be considered.Anti-Sanjuana-1 antibody should be considered for clinicallysuspected inflammatory myopathies.AC-0: NegativeInternational Consensus on MICHELLE Patterns(https://doi.org/10.1515/xbsd-5092-7973)For additional information, please refer tohttp://education.Teralytics.Queralt/faq/ANA984(This link is being provided for informational/educational purposes only.)THIS TEST WAS PERFORMED AT:[employer] [place] [phone] SOOD MD MICHELLE Titer TNP [facility] MICHELLE Pattern [facility] MICHELEL TITER 2 (REF LAB) [facility] MICHELLE Pattern 2 [facility] MICHELLE TITER 3 TNP [facility] MICHELLE PATTERN 3 [facility] Blood Venous blood specimen / Unknown 02/17/2024 8:55 AM EDT 02/17/2024 11:16 AM EDT Michelle Campos MD LAB BLOOD ORDERABLES Fin al Result Performing Organization Address City/[facility]/ZIP Co de Phone Number [facility] [address] [place] [address] [phone] * HIV-1/2 Antigen and Antibodies, Fourth Generation, with Reflexes (02/17/2024 8:55 AM EDT) HIV AB/AG Nonreactive Nonreactive [facility] Comment:HIV-1 p24 Ag and/or HIV-1/HIV-2 Ab not detected.A test result that is nonreactive does not exclude thepossibility of exposure to or infection with HIV-1 and/orHIV-2. Nonreactive results in this assay for individualswith prior exposure to HIV-1 and/or HIV-2 may be due toantigen and antibody levels that are below the limit ofdetection of this assay.The [employer] (formerly [employer]) HIV Ag/Ab Combo assay result andsupplemental assay results should be interpreted inconjunction with the patient's clinical presentation,history and other laboratory results. If the results areinconsistent with clinical evidence, additional testing issuggested to confirm the result. Blood Venous blood specimen / Unknown 02/17/2024 8:55 AM EDT 02/17/2024 11:16 AM EDT Michelle Campos MD LAB BLOOD ORDERABLES Fin al Result Performing Organization Address City/[facility]/ZIP Co de Phone Number [facility] [address] [place] [address] [phone] Hepatitis Panel, General (02/17/2024 8:55 AM EDT) Hepatitis A IgM Nonreactive Nonreactive [facility] Comment:IgM antibodies to MONAE V not detected; does not exclude earlyacute or recovered HAV infection. ~Hepatitis B Surface Antibody NONREACTIVE Nonreactive [facility] Comment:Nonreactive: < 8.00 mIU/mL Hepatitis B Core Antibody Nonreactive Nonreactive [facility] Hepatitis C Antibody Nonreactive Nonreactive [facility] Comment:Antibodies to HCV no t detected; does not exclude early acuteHCV infection. Hepatitis B Surface Ag Negative Negative [facility] Blood 02/17/2024 8:55 AM EDT 02/17/2024 11:16 AM EDT Michelle Campos MD LAB BLOOD ORDERABLES Fin al Result Performing Organization Address [facility] Co de Phone Number [facility] [address] [place] [address] [phone] * Vitamin D, 25-Hydroxy, Total, Immunoassay (02/17/2024 8:55 AM EDT) Vitamin D 25-OH Total 42.2 >30 ng/mL [facility] Comment:Health Based Referen ce Values*< 20 ng/mL Vpyplmani77-47 ng/mL Insufficient> 30 ng/mL Sufficient*Shane LEE. N Engl J Med. 2007;357:266-280Care must be taken in interpreting Vitamin D results fromdifferent laboratories and methodologies. Published datademonstrated that results from patients undergoinghemodialysis may show a negative bias when tested withvarious automated 25-OH vitamin D assays when compared toLC-MS/MS.When testing samples from patients whose predominant form ofVitamin D is Vitamin D2, such as patients receiving VitaminD2 supplementation, results that are subtherapeutic shouldbe confirmed with another method such as LC-MS/MS. Blood 02/17/2024 8:55 AM EDT 02/17/2024 11:16 AM EDT Michelle Campos MD LAB BLOOD ORDERABLES Fin al Result Performing Organization Address [facility] Co de Phone Number [facility] [address] [place] [phone] * Hepatic Function Panel (02/17/2024 8:55 AM EDT) Bilirubin, Total 0.7 0.0 - 1.0 mg/dL [facility] Bilirubin, Direct 0.2 0.0 - 0.5 mg/dL [facility] Aspartate Amino Transferase 27 5 - 37 U/L [facility] Alanine Aminotransferase 39 0 - 40 U/L [facility] Total Protein 7.4 6.5 - 8.0 g/dL [facility] Albumin Level 4.3 3.5 - 5.0 g/dL [facility] Alkaline Phosphatase 76 39 - 117 U/L [facility] Blood Venous blood specimen / Unknown 02/17/2024 8:55 AM EDT 02/17/2024 11:16 AM EDT Michelle Campos MD LAB BLOOD ORDERABLES Fin al Result [facility] [address] [place] [address] [phone] documented in this encounter Visit Diagnoses Diagnosis Elevated transaminase level- Primary documented in this encounter Additional Health Concerns Assessment Noted Time PHQ-9 Depression Total Score: 2 07/19/19 23 11:06 AM EST documented as of this encounter Care Teams Accounts Executive Relationship Specialty Start Date End Date Name, MD Pavel [address] [place] [address] PCP - General Internal Medicine 08/23/22 Yaneth Parks PharmD [address] [place] [address] Pharmacist Internal Medicine 03/20/23 documented as of this encounter
--- OUTSIDE RECORDS SUMMARY | 2024-08-05 14:07 | XMS_ITS | Clinical Summary ---
Author Organization [employer] Address [address] [facility] [address] [place] [address] Care Team Providers Care Reduction Plant Supervisor Name Role Phone Name, Pavel FRIEDMAN Primary Care Provider [phone] Yaneth Parks PharmD Unavailable [phone] Allergies Active Allergy Reactions Criticality Noted Date Comments Hydrochlorothiazide Swelling 01/29/2023 Face swelling Losartan Swelling 01/29/2023 Medications amLODIPine (Norvasc) 2.5 MG tabletIndications :Essential hypertension Take 1 tablet (2.5 mg) by mouth in the morning. 90 tablet 3 10/17/19 24 025 Active hydrALAZINE (Apresoline) 25 MG tabletIndications :Essential hypertension Take 1 tablet (25 mg) by mouth 2 times daily. 180 tablet 3 10/17/19 24 Active indapamide (Lozol) 1.25 MG tabletIndications :Essential hypertension Take 1 tablet (1.25 mg) by mouth in the morning. 90 tablet 3 10/17/19 24 Active spironolactone (Aldactone) 25 MG tabletIndications :Essential hypertension Take 1 tablet (25 mg) by mouth in the morning. 90 tablet 3 10/17/19 24 Active levothyroxine (Synthroid) 75 MCG tablet Take 1 tablet (75 mcg) by mouth before breakfast. 30 tablet 11 10/24/19 24 025 Active cholecalciferol (D3-1000) 25 MCG (1000 UT) capsuleIndication s:Vitamin D deficiency TAKE 1 CAPSULE BY MOUTH EVERY MORNING 90 capsule 2 01/02/20 24 Active atorvastatin (Lipitor) 10 MG tabletIndications :Hyperlipidemia, unspecified hyperlipidemia type Take 1 tablet by mouth every day 90 tablet 3 07/29/19 25 Active tadalafil (Cialis) 5 MG tablet Take 5 mg by mouth in the morning. 10/25/19 23 025 Discontinued(Me d list cleanup (will not trigger notification to Pharmacy)) atorvastatin (Lipitor) 10 MG tabletIndications :Hyperlipidemia, unspecified hyperlipidemia type Take 1 tablet by mouth every day 90 tablet 02/05/20 24 025 Discontinued(Re order (will not trigger notification to Pharmacy)) Active Problems Problem Noted Date Diagnosed Date Stage 3a chronic kidney disease 07/17/2024 Elevated transaminase level 12/12/2023 Fatigue 11/26/2023 Assessment & Plan (11/26/2023 7:06 PM EDT): ?Uncontrolled HTN? Lytes abn? Uncontrolled hypothyroid? Other hemorrhoids 08/17/2022 Overview (08/17/2022): Seen at [facility] ED 08/12 - conservative treatment recommended H/O transurethral resection of prostate 07/19/19 23 Erectile dysfunction 10/03/2021 Hyperlipidemia 10/03/2021 Subclinical hypothyroidism 10/03/2021 Assessment & Plan (11/26/2023 7:05 PM EDT): Levothyroxine was recently adjusted, recheck TSH in 2 more weeks. Continue levothyroxine 75 mcg/d Assessment & Plan (08/28/2022 2:30 PM EST): Start Synthroid 50mcg daily to see if that helps his fatigue, given TSH of 17.17 and normal free T4 Essential hypertension 02/28/2018 Assessment & Plan (11/26/2023 7:05 PM EDT): Uncontrolled, likely the cause of current sxs. Advised to use CPAP every night, take meds as rx, discuss with PCP re potential side effects. Check BP at home three times per week and fu BP with RN in 3w. Labs to be checked in 2w as levothyroxine was recently adjusted. Assessment & Plan (11/15/2022 4:06 PM EDT): - Aerobic exercise to reduce BP. Initial goal of 30 min walk 3-5x/week. Increase as tolerated. - low-sodium diet (goal: <2g/day) and heart healthy diet such as DASH to reduce BP and prevent ASCVD. - Home BP monitoring 1-2 x day with goal of <140/90. - Seek immediate medical attention for chest pain, palpitations, SOB, syncope, or sudden changes in mental status. Continue amlodipine 10mg, losartan 50mg and I added today hydrochlorothiazide 25mg daily f/u with nurse for BP check in 1 week Assessment & Plan (08/28/2022 2:29 PM EST): Lots of changes made recently, presumably in connection to patient's concerns over side effects and Cr rise - will continue Amlodipine 10mg - STOP chlorthalidone (slight hypokalemia on most recent labs of 08/11/22) and complaining of side effects - restart Lisinopril at 10mg daily Recheck labs in 2-4 weeks, BMP ordered F/u with PCP for BP check in 4-8 weeks Benign prostatic hyperplasia 12/24/2016 Encounters Date Type Department Care Team Description 07/17/2024 Orders Only [facility] MEDICINE [address] [place] [phone] Name, MD Pavel Stage 3a chronic kidney disease (CMS/HCC) (Primary Dx) 07/17/2024 Orders Only GENERIC EXTERNAL DATA DEPARTMENT Provider, Generic External Data 06/09/2024 Travel from Last 3 Months Immunizations Name Administration Dates Next Due Influenza, IIV3, injectable 06/28/2010 Pfizer Covid-19 Vaccine 12+ 12/23/2023(Deferred: Patient decision) Tdap 12/24/2016 Zoster, Recombinant 12/23/2023(Deferred: Patient decision) Social History Tobacco Use Types Packs/Day Years Used Date Smoking Tobacco: Never Passive Smoke Exposure: Never Smokeless Tobacco: Never Tobacco Cessation:Counseling Given: Not Answered Alcohol Use Standard Drinks/Week Comments Not Currently 0 (1 standard drink = 0.6 oz pur e alcohol) Alcohol Answer Date Recorded Frequency of Alcohol Consumption Not on file 03/02/2024 Average Number of Drinks Not on file 024 Frequency of Binge Drinking Not on file 02/12 Score 0 03/02/2024 Depression Answer Date Recorded Patient Health Questionnaire-9 Score 0 03/02/2024 Patient Health Questionnaire-9 Score 0 03/02/2024 Last PHQ-9: Questionnaire Data Not on file 0 03/02/2024 Housing Stability Answer Date Recorded What is [...] Date Recorded Patient Health Questionnaire-2 Score 0 03/02/2024 Internet Access Answer Date Recorded Internet Access Q1 Yes 04/07/2024 Internet Access Q2 Not on file 04/07/2024 Sex and Gender Information Value Date Recorded Sex Assigned at Male 05/14/2022 10:18 AM EDT Legal Sex Male 10:18 AM EDT Gender Identity Male 05/14/2022 10:18 AM EDT Sexual Orientation Don't know 05/14/2022 10 :18 AM EDT Last Filed Vital Signs Vital Sign Reading Time Taken Comments Blood Pressure 122/72 07/29/2024 3:35 PM EST Pulse 63 04/14/2024 2:40 PM EDT Temperature 36.8 ??C (98.3 ??F) 03/02/2024 1:02 PM ED T Respiratory Rate 14 04/14/2024 2:40 PM EDT Oxygen Saturation 97% 04/14/2024 2:40 PM EDT Inhaled Oxygen Concentration - - Weight 80.6 kg (177 lb 9.6 oz) 04/14/2024 2:40 P M EDT Height 160 cm (5' 3 ) 04/14/2024 2:40 PM EDT Body Mass Index 31.46 04/14/2024 2:40 PM EDT Plan of Treatment Upcoming Encounters Date Type Department Care Team (Late st Contact Info) Description 09/03/2024 3:30 PM EST Medication Management [facility] MEDICINE [address] [place] [address] Yaneth Parks, PharmD [address] [place] [address] 09/16/2024 2:30 PM EST Office Visit [facility] [address] [place] [address] Name, MD Pavel [address] [place] [address] 10/29/2024 3:00 PM EDT Office Visit [facility] OPTOMETRY [address] [place] [address] Micah, Rafaela, OD [address] [place] [address] Health Maintenance Due Date Last Done Comments CT Colonography 1963 FIT DNA/Cologuard 1963 FIT 1963 FOBT 1963 Sigmoidoscopy 1963 Zoster Vaccines (1 of 2) 12/27/2013 COVID-19 Vaccine ( - season) 2024 Influenza Vaccine (#1) 2024 06/28/2010 Alcohol/Substance Use Screening 03/02/2025 03/02/2024 Depression Screening 03/02/2025 03/02/2024, 03/02/20 24 SDOH Screening 04/07/2025 04/07/2024 Tobacco Screening 04/14/2025 04/14/2024 DTaP/Tdap/Td Vaccines (2 - Td or Tdap) 12/24/2026 12/24/2016 Lipid Panel 07/17/2029 07/17/2024, 06/15, 03/13/2023, Additional history exists Colonoscopy 01/16/2034 01/17/2024 Colorectal Cancer Screening 01/16/2034 RSV Patients and Patients Aged 60 years or older (1 - 1-dose 75+ series) 12/27/2038 HIV Screening Completed 02/17/2024, 09/19/2021 Hepatitis C Screening Completed 02/17/2024, 022 HIB Vaccines Aged Out No longer eligi ble based on patient's age to complete this topic HPV Vaccines Aged Out No longer eligi ble based on patient's age to complete this topic Hepatitis A Vaccines Aged Out No long er eligible based on patient's age to complete this topic Hepatitis B Vaccines Aged Out No long er eligible based on patient's age to complete this topic IPV Vaccines Aged Out No longer eligi ble based on patient's age to complete this topic Meningococcal Vaccine Aged Out No melba fawn eligible based on patient's age to complete this topic Pneumococcal Vaccine: Pediatrics (0 to 5 Years) and At-Risk Patients (6 to 64 Years) Aged Out No longer eligible based on patient's age to complete this topic RSV under 20 months Aged Out No longe r eligible based on patient's age to complete this topic Rotavirus Vaccines Aged Out No longer eligible based on patient's age to complete this topic Goals Goal Patient Goal Type Associated Problems Recent Progress Patient-Stated? Author Record your blood pressure once per day Blood Pressure On track( 024 11:27 AM EDT) No Puia, Yaneth, PharmD Blood Pressure < 140/90 Blood Pressure 122/72(2024 3:35 PM EST) No Puia, Yaneth, PharmD Patient will adhere to medication regimen General On track( 024 11:27 AM EDT) No Puia, Yaneth, PharmD LDL Calc < 100 Result Component No Puia, Yaneth, PharmD Procedures Procedure Name Priority Date/Time Associated Diagnosis Comments TESTOSTERONE, FREE (DIALYSIS) AND TOTAL,MS Routine 07/17/2024 9:41 AM EST Stage 3a chronic kidney disease (CMS/HCC) PSA, TOTAL Routine 07/17/2024 9:41 AM EST LIPID PANEL, STANDARD Routine 07/17/2024 9:41 AM EST BASIC METABOLIC PANEL Routine 07/17/2024 9:41 AM EST HEPATITIS PANEL, GENERAL Routine 02/17/2024 8:55 AM EDT Elevated transaminase level HIV 1/2 ANTIGEN/ANTIBODY, FOURTH GENERATION W/RFL Routine 02/17/2024 8:55 AM EDT Elevated transaminase level HM COLONOSCOPY Routine 01/17/2024 from Last 3 Months or Most Recently Relevant to Health Maintenance Results * Testosterone, Free (Dialysis) And Total, MS (07/17/2024 9:41 AM EST) Testosterone, Total 323 250 - 1100 ng/dL [facility] Comment:For additional infor batsheva, please refer tohttp://education.[employer]/faq/[email or web address](This link is being provided for informational/educational purposes only.)This test was developed and its analytical performancecharacteristics have been determined by [facility] [place], [place]. It hasnot been cleared or approved by the U.S. Food and DrugAdministration. This assay has been validated pursuantto the CLIA regulations and is used for clinicalpurposes. Testosterone, Free 55.2 35.0 - 155.0 pg/mL [facility] Comment:This test was develo ped and its analytical performancecharacteristics have been determined by [facility]. It hasnot been cleared or approved by the U.S. Food and DrugAdministration. This assay has been validated pursuantto the CLIA regulations and is used for clinicalpurposes.THIS TEST WAS PERFORMED AT:[id number] [place] [id number] RAMIREZ MD,PHD 07/17/2024 9:41 AM EST 07/17/2024 11:05 AM EST Generic External Data Provider LAB BLOOD ORDERAB LES Final Result Performing Organization Address [facility] Co de Phone Number [facility] [address] [place] [phone] * PSA,Total (07/17/2024 9:41 AM EST) Prostate Specific Antigen 3.34 <0.05 - 4.0 ng/mL [facility] Comment:PSA methodology: Abb ethel Alicareyty i ChemiluminescentMicroparticle Immunoassay (CMIA) 07/17/2024 9:41 AM EST 07/17/2024 11:05 AM EST Generic External Data Provider LAB BLOOD ORDERAB LES Final Result Performing Organization Address [facility] Co de Phone Number [facility] [address] [place] [phone] * (ABNORMAL) Lipid Panel, Standard (07/17/2024 9:41 AM EST) Triglycerides 90 <150 mg/dL [facility] Comment:Desirable Triglyceri de: less than 150 mg/dLBorderline High Triglyceride 150-199 mg/dLHigh Triglyceride: 200-499 mg/dLVery High Triglyceride: greater than or equal to 5OO mg/dL Cholesterol 233(H) <200 mg/dL [facility] Comment:Desirable Cholestero l: less than 200 mg/dLBorderline High Cholesterol: 200-239 mg/dLHigh Cholesterol: greater than 239 mg/dL LDL Cholesterol Calculated 163(H) <100 mg/dL [facility] Comment:Desirable LDL: less than 100 mg/dLNear Optimal/Above Optimal LDL: 110- 129 mg/dLBorderline High LDL: 130-159 mg/dLHigh LDL: 160-189 mg/dLVery High LDL: greater than or equal to 190 mg/dL HDL Cholesterol 52 >40 mg/dL [facility] Comment:Desirable HDL: great er than 40 mg/dL Note: This HDL assay may give artificially low results in patients with liver disease. 07/17/2024 9:41 AM EST 07/17/2024 11:05 AM EST us Paevl Kelly MD LAB BLOOD ORDERABLES Final Resul t Performing Organization Address [facility]/ZIP Co de Phone Number [facility] [address] [place] [phone] * (ABNORMAL) Basic Metabolic Panel (07/17/2024 9:41 AM EST) Sodium 140 135 - 145 mmol/L [facility] Potassium 4.4 3.3 - 5.1 mmol/L [facility] Chloride 104 96 - 108 mmol/L [facility] Carbon Dioxide 30(H) 22 - 29 mmol/L [facility] Anion Gap 10(L) 12 - 20 [facility] Urea Nitrogen (BUN) 29(H) 9 - 16 mg/dL [facility] Creatinine, Serum 1.70(H) 0.5 - 1.4 mg/dL [facility] Estimated Glomerular Filt Rate 41 [facility] Comment:Chronic Kidney Disea se: Estimated GFR < 60 mL/min/1.10d2Mmeznp Kidney Disease: Estimated GFR < 15 mL/min/1.73m2 Glucose 91 60 - 115 mg/dL [facility] Calcium 9.7 8.4 - 10.2 mg/dL [facility] 07/17/2024 9:41 AM EST 07/17/2024 11:05 AM EST us Generic External Data Provider LAB BLOOD ORDERAB LES Final Result Performing Organization Address [facility]/ZIP Co de Phone Number [facility] [address] [place] [address] [phone] * Hepatitis Panel, General (02/17/2024 8:55 AM EDT) Hepatitis A IgM Nonreactive Nonreactive [facility] Comment:IgM antibodies to MONAE V not detected; does not exclude earlyacute or recovered HAV infection. ~Hepatitis B Surface Antibody NONREACTIVE Nonreactive [facility] Comment:Nonreactive: < 8.00 mIU/mL Hepatitis B Core Antibody Nonreactive Nonreactive [facility] Hepatitis C Antibody Nonreactive Nonreactive [facility] Comment:Antibodies to HCV no t detected; does not exclude early acuteHCV infection. Hepatitis B Surface Ag Negative Negative [facility] Blood 02/17/2024 8:55 AM EDT 02/17/2024 11:16 AM EDT us Michelle Campos MD LAB BLOOD ORDERABLES Fin al Result Performing Organization Address [facility]/ZIP Co de Phone Number [facility] [address] [place] [phone] * HIV-1/2 Antigen and Antibodies, Fourth Generation, with Reflexes (02/17/2024 8:55 AM EDT) HIV AB/AG Nonreactive Nonreactive [facility] Comment:HIV-1 p24 Ag and/or HIV-1/HIV-2 Ab not detected.A test result that is nonreactive does not exclude thepossibility of exposure to or infection with HIV-1 and/orHIV-2. Nonreactive results in this assay for individualswith prior exposure to HIV-1 and/or HIV-2 may be due toantigen and antibody levels that are below the limit ofdetection of this assay.The [employer] HIV Ag/Ab Combo assay result andsupplemental assay results should be interpreted inconjunction with the patient's clinical presentation,history and other laboratory results. If the results areinconsistent with clinical evidence, additional testing issuggested to confirm the result. Blood Venous blood specimen / Unknown 02/17/2024 8:55 AM EDT 02/17/2024 11:16 AM EDT us Michelle Campos MD LAB BLOOD ORDERABLES Fin al Result Performing Organization Address [facility]/ZIP Co de Phone Number [facility] [address] [place] [phone] * Colonoscopy (01/17/2024) Colonoscopy Normal Normal Pavel Kelly MD HEALTH MAINTENANCE Final Result from Last 3 Months or Most Recently Relevant to Health Maintenance Insurance HS FULL [facility] C3 Care Teams Reduction Plant Supervisor Relationship Specialty Start Date End Date Name, MD Pavel [address] [place] [phone] PCP - General Internal Medicine 08/23/22 Yaneth Parks, CeleD [address] [place] [phone] Pharmacist Internal Medicine 03/20/23
--- OUTSIDE RECORDS SUMMARY | 2024-08-05 14:07 | XMS_ITS | Encounter Summary ---
Author Organization [employer] [facility] Address [address] [facility] [address] [place] [address] Care Team Providers Care Director Of Flight Operations Name Role Phone Name, Pavel FRIEDMAN Primary Care Provider [phone] Yaneth Parks PharmD Unavailable [phone] Encounter Details Date Type Department Care Team ([facility] Contact Info) Description 07/17/2024 Orders Only GENERIC EXTERNAL DATA DEPARTMENT Provider, Generic External Data Social History Tobacco Use Types Packs/Day Years [...] Description 09/03/2024 3:30 PM EST Medication Management [facility] MEDICINE [address] [place] [address] Yaneth Parks, PharmD [address] [place] [address] 09/16/2024 2:30 PM EST Office Visit [facility] MEDICINE [address] [place] [address] Name, MD Pavel [address] [place] [address] 10/29/2024 3:00 PM EDT Office Visit [facility] OPTOMETRY [address] [place] [phone] Micah, Rafaela, OD [address] [place] [address] documented as of this encounter Goals Goal Patient Goal Type Associated Problems Recent Progress Patient-Stated? Author Record your blood pressure once per day Blood Pressure On track( 024 11:27 AM EDT) No PuiaYaneth, PharmD Blood Pressure < 140/90 Blood Pressure 122/72(2024 3:35 PM EST) No Yaneth Parks PharmD Patient will adhere to medication regimen General On track( 024 11:27 AM EDT) No Yaneth Parks PharmD LDL Calc < 100 Result Component No Yaneth Parks PharmD documented as of this encounter Procedures Procedure Name Priority Date/Time Associated Diagnosis Comments PSA, TOTAL Routine 07/17/2024 9:41 AM EST LIPID PANEL, STANDARD Routine 07/17/2024 9:41 AM EST BASIC METABOLIC PANEL Routine 07/17/2024 9:41 AM EST documented in this encounter Results * PSA,Total (07/17/2024 9:41 AM EST) Prostate Specific Antigen 3.34 <0.05 - 4.0 ng/mL [facility] Comment:PSA methodology: Oniel Olivia i ChemiluminescentMicroparticle Immunoassay (CMIA) 07/17/2024 9:41 AM EST 07/17/2024 11:05 AM EST us Generic External Data Provider LAB BLOOD ORDERAB LES Final Result [facility] [address] [place] [phone] * (ABNORMAL) Lipid Panel, Standard (07/17/2024 9:41 AM EST) Triglycerides 90 <150 mg/dL [facility] Comment:Desirable Triglyceri de: less than 150 mg/dLBorderline High Triglyceride 150-199 mg/dLHigh Triglyceride: 200-499 mg/dLVery High Triglyceride: greater than or equal to 5OO mg/dL Cholesterol 233(H) <200 mg/dL [facility] Comment:Desirable Cholestero l: less than 200 mg/dLBorderline High Cholesterol: 200-239 mg/dLHigh Cholesterol: greater than 239 mg/dL LDL Cholesterol Calculated 163(H) <100 mg/dL [facility] Comment:Desirable LDL: less than 100 mg/dLNear Optimal/Above Optimal LDL: 110- 129 mg/dLBorderline High LDL: 130-159 mg/dLHigh LDL: 160-189 mg/dLVery High LDL: greater than or equal to 190 mg/dL HDL Cholesterol 52 >40 mg/dL [facility] Comment:Desirable HDL: great er than 40 mg/dL Note: This HDL assay may give artificially low results in patients with liver disease. 07/17/2024 9:41 AM EST 07/17/2024 11:05 AM EST us Pavel Kelly MD LAB BLOOD ORDERABLES Final Resul t Performing Organization Address [facility] Co de Phone Number [facility] [address] [place] [phone] * (ABNORMAL) Basic Metabolic Panel (07/17/2024 9:41 AM EST) Sodium 140 135 - 145 mmol/L [facility] Potassium 4.4 3.3 - 5.1 mmol/L [facility] Chloride 104 96 - 108 mmol/L [facility] Carbon Dioxide 30(H) 22 - 29 mmol/L [facility] Anion Gap 10(L) 12 - 20 [facility] Urea Nitrogen (BUN) 29(H) 9 - 16 mg/dL [facility] Creatinine, Serum 1.70(H) 0.5 - 1.4 mg/dL [facility] Estimated Glomerular Filt Rate 41 [facility] Comment:Chronic Kidney Disea se: Estimated GFR < 60 mL/min/1.56t7Fsaagk Kidney Disease: Estimated GFR < 15 mL/min/1.73m2 Glucose 91 60 - 115 mg/dL [facility] Calcium 9.7 8.4 - 10.2 mg/dL [facility] 07/17/2024 9:41 AM EST 07/17/2024 11:05 AM EST us Generic External Data Provider LAB BLOOD ORDERAB LES Final Result Performing Organization Address City/[facility]/ZIP Co de Phone Number [facility] [address] [place] [phone] [phone] documented in this encounter Visit Diagnoses Not on filedocumented in this encounter Additional Health Concerns Assessment Noted Time PHQ-9 Depression Total Score: 0 03/02/20 24 1:06 PM EDT documented as of this encounter Care Teams Director Of Flight Operations Relationship Specialty Start Date End Date Name, MD Pavel [address] [place] [address] PCP - General Internal Medicine 08/23/22 Yaneth Parks PharmD [address] [place] [address] Pharmacist Internal Medicine 03/20/23 documented as of this encounter
--- OUTSIDE RECORDS SUMMARY | 2024-08-05 14:07 | XMS_ITS | Encounter Summary ---
Author Organization [employer] [facility] Address [address] 7t [place] [address] Care Team Providers Care Workforce Staffing Advisor Name Role Phone Name, Pavel FRIEDMAN Primary Care Provider [phone] Yaneth Parks PharmD Unavailable [phone] Encounter Details Date Type Department Care Team ([facility] st Contact Info) Description 07/17/2024 Orders Only [facility] MEDICINE [address] [place], [place] [phone] Name, MD Pavel [address] [place] [address] Stage 3a chronic kidney disease (CMS/HCC) (Primary Dx) Social History Tobacco Use Types [...] the past 12 months, has t he [employer], gas, oil or water [employer] threatened to shut off services in your [...] Description 09/03/2024 3:30 PM EST Medication Management [facility] [address] [place] [address] Yaneth Parks, PharmD [address] [place] [address] 09/16/2024 2:30 PM EST Office Visit [facility] [address] [place] [address] Name, MD Pavel [address] [place] [address] 10/29/2024 3:00 PM EDT Office Visit [facility] OPTOMETRY [address] [place] [phone] Rafaela Obrien, OD [address] [place] [address] documented as of this encounter Goals Goal Patient Goal Type Associated Problems Recent Progress Patient-Stated? Author Record your blood pressure once per day Blood Pressure On track( 024 11:27 AM EDT) No Yaneth Parks PharmD Blood Pressure < 140/90 Blood Pressure 122/72(2024 3:35 PM EST) No Yaneth Parks PharmD Patient will adhere to medication regimen General On track( 024 11:27 AM EDT) No Yaneth Parks PharmD LDL Calc < 100 Result Component No Samuel Parksyssa PharmD documented as of this encounter Procedures Procedure Name Priority Date/Time Associated Diagnosis Comments TESTOSTERONE, FREE (DIALYSIS) AND TOTAL,MS Routine 07/17/2024 9:41 AM EST Stage 3a chronic kidney disease (CMS/HCC) documented in this encounter Results * Testosterone, Free (Dialysis) And Total, MS (07/17/2024 9:41 AM EST) Testosterone, Total 323 250 - 1100 ng/dL [facility] Comment:For additional infor batsheva, please refer tohttp://education.CloudPay.net/faq/PdalxHakgaqthhyqyHCMNUFBAF059(This link is being provided for informational/educational purposes only.)This test was developed and its analytical performancecharacteristics have been determined by [employer] [place], [place]. It hasnot been cleared or approved by the U.S. Food and DrugAdministration. This assay has been validated pursuantto the CLIA regulations and is used for clinicalpurposes. Testosterone, Free 55.2 35.0 - 155.0 pg/mL [facility] Comment:This test was develo ped and its analytical performancecharacteristics have been determined by [employer] [place], [place]. It hasnot been cleared or approved by the U.S. Food and DrugAdministration. This assay has been validated pursuantto the CLIA regulations and is used for clinicalpurposes.THIS TEST WAS PERFORMED AT:[employer] [id number] [place] [id number] RAMIREZ MD,PHD 07/17/2024 9:41 AM EST 07/17/2024 11:05 AM EST us Generic External Data Provider LAB BLOOD ORDERAB LES Final Result [facility] [address] [place] [address] [phone] documented in this encounter Visit Diagnoses Diagnosis Stage 3a chronic kidney disease (CMS/HCC)- Primary documented in this encounter Additional Health Concerns Assessment Noted Time PHQ-9 Depression Total Score: 0 03/02/20 24 1:06 PM EDT documented as of this encounter Care Teams Workforce Staffing Advisor Relationship Specialty Start Date End Date Name, MD Pavel [address] [place] [address] PCP - General Internal Medicine 08/23/22 Yaneth Parks, CeleD [address] [place] [address] Pharmacist Internal Medicine 03/20/23 documented as of this encounter
== END 2024-08-05 16:00 | disposition home or self-care (01) ==
LOC: HO.HUSH 12:12
PROVIDERS: Visit Provider Nurse Practitioner Family
DX: E29.1 Testicular hypofunction (principal); Z87.898 Personal history of other specified conditions; R68.82 Decreased libido; N52.9 Male erectile dysfunction, unspecified
CPT/HCPCS: 99213

== ENCOUNTER → 2024-08-05 12:11 | Outpatient (BNVA) | payer MEDICAID, SELFPAY | PROVIDERS: Visit Provider Nurse Practitioner Family ==

== ENCOUNTER 2024-09-07 09:52 | Outpatient (REF) | payer MEDICAID, SELFPAY ==
--- OUTSIDE RECORDS SUMMARY | 2024-09-07 10:53 | XMS_ITS | Encounter Summary ---
Author Organization [employer] [facility] Address [address] 7t [place] [address] Care Team Providers Care Dampproofer Name Role Phone Name, Pavel FRIEDMAN Primary Care Provider [phone] Yaneth Parks PharmD Unavailable [phone] Encounter Details Date Type Department Care Team (Latest Contact Info) Description 09/03/2024 Travel Social History Tobacco Use Types Packs/Day Years [...] Care Team (Late st Contact Info) Description 09/16/2024 2:30 PM EST Office Visit [facility] MEDICINE [address] [place] [address] Name, MD Pavel [address] [place] [address] 10/13/2024 1:00 PM EDT Medication Management [facility] MEDICINE [address] [place] [address] Puia, Yaneth, PharmD [address] [place] [address] 10/29/2024 3:00 PM EDT Office Visit [facility] OPTOMETRY [address] [place] [phone] Rafaela Obrien, OD [address] [place] [address] documented as of this encounter Goals Goal Patient Goal Type Associated Problems Recent Progress Patient-Stated? Author Record your blood pressure once per day Blood Pressure On track( 024 11:27 AM EDT) No Puia, Yaneth, PharmD Blood Pressure < 140/90 Blood Pressure 120/78(2024 3:50 PM EST) No Puia, Yaneth, PharmD Patient will adhere to medication regimen General On track( 024 11:27 AM EDT) No Yaneth Parks PharmD LDL Calc < 100 Result Component No Yaneth Parks PharmD documented as of this encounter Visit Diagnoses Not on filedocumented in this encounter Additional Health Concerns Assessment Noted Time PHQ-9 Depression Total Score: 0 03/02/20 24 1:06 PM EDT documented as of this encounter Care Teams Dampproofer Relationship Specialty Start Date End Date Name, MD Pavel [address] [place] [address] PCP - General Internal Medicine 08/23/22 Yaneth Parks PharmD [address] [place] [phone] Pharmacist Internal Medicine 03/20/23 documented as of this encounter
--- OUTSIDE RECORDS SUMMARY | 2024-09-07 10:53 | XMS_ITS | Encounter Summary ---
Author Organization [employer] Address [address] 7t [place] [address] Care Team Providers Care Dial Buffer Name Role Phone Name, Pavel FRIEDMAN Primary Care Provider [phone] Yaneth Parks PharmD Unavailable [phone] Encounter Details Date Type Department Care Team ([facility] Contact Info) Description 12/12/2023 Orders Only [facility] MEDICINE [address] [place], [place] [phone] Michelle Campos MD [address] [place], [place] [phone] Elevated transaminase level (Primary Dx) Social History [...] Description 09/16/2024 2:30 PM EST Office Visit [facility] MEDICINE [address] [place] [phone] Name, MD Pavel [address] [place] [address] 10/13/2024 1:00 PM EDT Medication Management [facility] [address] [place] [address] Puia, Yaneth, PharmD [address] [place] [address] 10/29/2024 3:00 PM EDT Office Visit [facility] OPTOMETRY [address] [place] [address] Micah, Rafaela, OD [address] [place] [address] documented as of this encounter Goals Goal [...] EDT) Anti Nuclear Antibody Screen NEGATIVE NEGATIVE [facility] Comment:MICHELLE IFA is a first [...] clinicallysuspected inflammatory myopathies.AC-0: NegativeInternational Consensus on MICHELLE Patterns(https://doi.org/10.1515/lwtu-6629-9343)For additional information, please refer tohttp://education.[employer]ognition Technologies.ListMinut/faq/RVP980(This link is being provided for informational/educational purposes only.)THIS TEST WAS PERFORMED AT:[employer] [place] [id number] SOOD MD MICHELLE Titer TNP [facility] MICHELLE Pattern [facility] MICHELLE TITER 2 (REF LAB) [facility] MICHELLE Pattern 2 [facility] MICHELLE TITER 3 TNP [facility] MICHELLE PATTERN 3 [facility] Blood Venous blood specimen / Unknown 02/17/2024 8:55 AM EDT 02/17/2024 11:16 AM EDT Michelle Campos MD LAB BLOOD ORDERABLES Fin al Result Performing Organization Address City/[facility]/ZIP Co de Phone Number [facility] [address] [place] [phone] * HIV-1/2 Antigen and Antibodies, Fourth Generation, with Reflexes (02/17/2024 8:55 AM EDT) HIV AB/AG Nonreactive Nonreactive [facility] Comment:HIV-1 p24 Ag and/or HIV-1/HIV-2 Ab not detected.A test result that is nonreactive does not exclude thepossibility of exposure to or infection with HIV-1 and/orHIV-2. Nonreactive results in this assay for individualswith prior exposure to HIV-1 and/or HIV-2 may be due toantigen and antibody levels that are below the limit ofdetection of this assay.The [facility] HIV Ag/Ab Combo assay result andsupplemental assay results should be interpreted inconjunction with the patient's clinical presentation,history and other laboratory results. If the results areinconsistent with clinical evidence, additional testing issuggested to confirm the result. Blood Venous blood specimen / Unknown 02/17/2024 8:55 AM EDT 02/17/2024 11:16 AM EDT Michelle Campos MD LAB BLOOD ORDERABLES Fin al Result Performing Organization Address City/[facility]/ZIP Co de Phone Number [facility] [address] [place] [address] [phone] * Hepatitis Panel, General (02/17/2024 8:55 AM EDT) Pathologist [facility] Hepatitis A IgM Nonreactive Nonreactive [facility] Comment:IgM antibodies to MONAE V not detected; does not exclude earlyacute or recovered HAV infection. ~Hepatitis B Surface Antibody NONREACTIVE Nonreactive [facility] Comment:Nonreactive: < 8.00 mIU/mL Hepatitis B Core Antibody Nonreactive Nonreactive [facility] Hepatitis C Antibody Nonreactive Nonreactive [facility] Comment:Antibodies to HCV no t detected; does not exclude early acuteHCV infection. Hepatitis B Surface Ag Negative Negative [facility] Blood 02/17/2024 8:55 AM EDT 02/17/2024 11:16 AM EDT us Michelle Campos MD LAB BLOOD ORDERABLES Fin al Result Performing Organization Address [facility] Co de Phone Number [facility] [address] [place] [phone] * Vitamin D, 25-Hydroxy, Total, Immunoassay (02/17/2024 8:55 AM EDT) Vitamin D 25-OH Total 42.2 >30 ng/mL [facility] Comment:Health Based Referen ce Values*< 20 ng/mL Qguhzkhay79-49 ng/mL Insufficient> 30 ng/mL Sufficient*Shane LEE. N [...] ORDERABLES Fin al Result Performing Organization Address [facility] Co de Phone Number [facility] [address] [place] [phone] * Hepatic Function Panel (02/17/2024 8:55 AM EDT) Bilirubin, Total 0.7 0.0 - 1.0 mg/dL [facility] Bilirubin, Direct 0.2 0.0 - 0.5 mg/dL [facility] Aspartate Amino Transferase 27 5 - 37 U/L [facility] Alanine Aminotransferase 39 0 - 40 U/L [facility] Total Protein 7.4 6.5 - 8.0 g/dL [facility] Albumin Level 4.3 3.5 - 5.0 g/dL [facility] Alkaline Phosphatase 76 39 - 117 U/L [facility] Blood Venous blood specimen / Unknown 02/17/2024 8:55 AM EDT 02/17/2024 11:16 AM EDT Michelle Campos MD LAB BLOOD ORDERABLES Fin al Result [facility] [address] [place] [address] [phone] documented in this encounter Visit Diagnoses Diagnosis Elevated transaminase level- Primary documented in this encounter Additional Health Concerns Assessment Noted Time PHQ-9 Depression Total Score: 2 07/19/19 23 11:06 AM EST documented as of this encounter Care Teams Dial Buffer Relationship Specialty Start Date End Date Name, MD Pavel [address] [place] [address] PCP - General Internal Medicine 08/23/22 Yaneth Parks PharmD [address] [place] [address] Pharmacist Internal Medicine 03/20/23 documented as of this encounter
--- OUTSIDE RECORDS SUMMARY | 2024-09-07 10:53 | XMS_ITS | Clinical Summary ---
Author Organization [employer] Address [address] [facility] 7t [place] [address] Care Team Providers Care Operating Room Tech Name Role Phone Name, Pavel FRIEDMAN Primary Care Provider [phone] Yaneth Parks PharmD Unavailable [phone] Allergies Active Allergy Reactions Criticality Noted Date Comments Hydrochlorothiazide Swelling 01/29/2023 Face swelling Losartan Swelling 01/29/2023 Medications amLODIPine (Norvasc) 2.5 MG tabletIndications: Essential hypertension Take 1 tablet (2.5 mg) by mouth in the morning. 90 tablet 3 10/17/19 24 025 Active hydrALAZINE (Apresoline) 25 MG tabletIndications: Essential hypertension Take 1 tablet (25 mg) by mouth 2 times daily. 180 tablet 3 10/17/19 24 Active indapamide (Lozol) 1.25 MG tabletIndications: Essential hypertension Take 1 tablet (1.25 mg) by mouth in the morning. 90 tablet 3 10/17/19 24 Active spironolactone (Aldactone) 25 MG tabletIndications: Essential hypertension Take 1 tablet (25 mg) by mouth in the morning. 90 tablet 3 10/17/19 24 Active levothyroxine (Synthroid) 75 MCG tablet Take 1 tablet (75 mcg) by mouth before breakfast. 30 tablet 11 10/24/19 24 025 Active cholecalciferol (D3-1000) 25 MCG (1000 UT) capsuleIndications :Vitamin D deficiency TAKE 1 CAPSULE BY MOUTH EVERY MORNING 90 capsule 2 01/02/20 24 Active Additional Information Patient not taking.Reported on 09/03/2024 atorvastatin (Lipitor) 10 MG tabletIndications: Hyperlipidemia, unspecified hyperlipidemia type Take 1 tablet by mouth every day 90 tablet 3 07/29/19 25 Active Active Problems Problem Noted Date Diagnosed Date Stage 3a chronic kidney disease 07/17/2024 Elevated transaminase level 12/12/2023 Fatigue 11/26/2023 Assessment & Plan (11/26/2023 7:06 PM EDT): ?Uncontrolled HTN? Lytes abn? Uncontrolled hypothyroid? Other hemorrhoids 08/17/2022 Overview (08/17/2022): Se[facility] [place] [facility] 08[place]12 - conservative treatment recommended H/O [...] Encounters Date Type Department Care Team Description 09/03/2024 Travel 07/17/2024 Orders Only [facility] MEDICINE [address] [place] [address] Name, MD Pavel Stage 3a chronic kidney [...] your housing situation today? I have kushal sing 05/01/[address] you li [...] Sign Reading Time Taken Comments Blood Pressure 120/78 09/03/2024 3:50 PM EST Pulse 63 04/14/2024 2:40 PM [...] Description 09/16/2024 2:30 PM EST Office Visit [facility] MEDICINE [address] [place] [address] Name, MD Pavel [address] [place] [address] 10/13/2024 1:00 PM EDT Medication Management [facility] MEDICINE [address] [place] [address] Yaneth Parks, PharmD [address] [place] [address] 10/29/2024 3:00 PM EDT Office Visit [facility] OPTOMETRY [address] [place] [address] Micah, Rafaela, OD [address] [place] [address] Health Maintenance Due Date Last Done Comments CT Colonography 1963 FIT DNA/Cologuard 1963 FIT 1963 FOBT 1965 Sigmoidoscopy 1965 Pneumococcal Vaccine: 50+ Years (1 of 1 - PCV) 12/27/2013 Zoster Vaccines (1 of 2) 12/27/2013 COVID-19 [...] once per day Blood Pressure On track( 11:27 AM EDT) No Puia, Yaneth, PharmD Blood Pressure < 140/90 Blood Pressure 120/78(2024 3:50 PM EST) No Puia, Yaneth, PharmD Patient will adhere to medication regimen General On track( 11:27 AM EDT) No Puia, Yaneth, PharmD [...] Testosterone, Total 323 250 - 1100 ng/dL [facility] Comment:For additional infor matkatie, please refer tohttp://education.[employer]/faq/EztslHmxkljwujbphFUPJPFCJS225(This link is being provided for informational/educational purposes only.)This test was developed and its analytical performancecharacteristics have been determined by [employer] [place], [place]. It hasnot been cleared or approved by the U.S. Food and DrugAdministration. This assay has been validated pursuantto the CLIA regulations and is used for clinicalpurposes. Testosterone, Free 55.2 35.0 - 155.0 pg/mL [facility] Comment:This test was develo ped and its analytical performancecharacteristics have been determined by [employer] [place], [place]. It hasnot been cleared or approved by the U.S. Food and DrugAdministration. This assay has been validated pursuantto the CLIA regulations and is used for clinicalpurposes.THIS TEST WAS PERFORMED AT:[employer] [id number] [place] [address]CQMVVONMELISSA RAMIREZ MD,PHD 07/17/2024 9:41 AM EST 07/17/2024 11:05 AM EST us Generic External Data Provider LAB BLOOD ORDERAB LES Final Result [facility] [address] [place] [phone] * PSA,Total (07/17/2024 9:41 AM EST) Prostate Specific Antigen 3.34 <0.05 - 4.0 ng/mL [facility] Comment:PSA methodology: Oniel Olivia i ChemiluminescentMicroparticle Immunoassay (CMIA) 07/17/2024 9:41 AM EST 07/17/2024 11:05 AM EST us Generic External Data Provider LAB BLOOD ORDERAB LES Final Result Performing Organization Address [facility]/ZIP Co de Phone Number [facility] [address] [place] [phone] * (ABNORMAL) Lipid Panel, Standard (07/17/2024 9:41 AM EST) Triglycerides 90 <150 mg/dL [facility] Comment:Desirable Triglyceri de: less than 150 mg/dLBorderline High Triglyceride 150-199 mg/dLHigh Triglyceride: 200-499 mg/dLVery High Triglyceride: greater than or equal to 5OO mg/dL Cholesterol 233(H) <200 mg/dL [facility] Comment:Desirable Cholestero l: less than 200 mg/dLBorderline High Cholesterol: 200-239 mg/dLHigh Cholesterol: greater than 239 mg/dL LDL Cholesterol Calculated 163(H) <100 mg/dL [facility] Comment:Desirable LDL: less than 100 mg/dLNear Optimal/Above Optimal LDL: 110- 129 mg/dLBorderline High LDL: 130-159 mg/dLHigh LDL: 160-189 mg/dLVery High LDL: greater than or equal to 190 mg/dL HDL Cholesterol 52 >40 mg/dL [facility] Comment:Desirable HDL: great er than 40 mg/dL Note: This HDL assay may give artificially low results in patients with liver disease. 07/17/2024 9:41 AM EST 07/17/2024 11:05 AM EST us Pavel Kelly MD LAB BLOOD ORDERABLES Final Resul t Performing Organization Address City/[facility]/ZIP Co de Phone Number [facility] [address] [place] [phone] * (ABNORMAL) Basic Metabolic Panel (07/17/2024 9:41 AM EST) Pathologist [facility] Sodium 140 135 - 145 mmol/L [facility] Potassium 4.4 3.3 - 5.1 mmol/L [facility] Chloride 104 96 - 108 mmol/L [facility] Carbon Dioxide 30(H) 22 - 29 mmol/L [facility] Anion Gap 10(L) 12 - 20 [facility] Urea Nitrogen (BUN) 29(H) 9 - 16 mg/dL [facility] Creatinine, Serum 1.70(H) 0.5 - 1.4 mg/dL [facility] Estimated Glomerular Filt Rate 41 [facility] Comment:Chronic Kidney Disea se: Estimated GFR < 60 mL/min/1.63j5Euyalh Kidney Disease: Estimated GFR < 15 mL/min/1.73m2 Glucose 91 60 - 115 mg/dL [facility] Calcium 9.7 8.4 - 10.2 mg/dL [facility] 07/17/2024 9:41 AM EST 07/17/2024 11:05 AM EST us Generic External Data Provider LAB BLOOD ORDERAB LES Final Result Performing Organization Address City/State/[facility] Co de Phone Number [facility] [address] [place] [phone] * Hepatitis Panel, General (02/17/2024 8:55 AM EDT) Pathologist [facility] Hepatitis A IgM Nonreactive Nonreactive [facility] Comment:IgM antibodies to MONAE V not detected; does not exclude earlyacute or recovered HAV infection. ~Hepatitis B Surface Antibody NONREACTIVE Nonreactive [facility] Comment:Nonreactive: < 8.00 mIU/mL Hepatitis B Core Antibody Nonreactive Nonreactive [facility] Hepatitis C Antibody Nonreactive Nonreactive [facility] Comment:Antibodies to HCV no t detected; does not exclude early acuteHCV infection. Hepatitis B Surface Ag Negative Negative [facility] Blood 02/17/2024 8:55 AM EDT 02/17/2024 11:16 AM EDT Michelle Campos MD LAB BLOOD ORDERABLES Fin al Result Performing Organization Address [facility] Co de Phone Number [facility] [address] [place] [phone] * HIV-1/2 Antigen and Antibodies, Fourth Generation, with Reflexes (02/17/2024 8:55 AM EDT) HIV AB/AG Nonreactive Nonreactive [facility] Comment:HIV-1 p24 Ag and/or HIV-1/HIV-2 Ab not detected.A test result that is nonreactive does not exclude thepossibility of exposure to or infection with HIV-1 and/orHIV-2. Nonreactive results in this assay for individualswith prior exposure to HIV-1 and/or HIV-2 may be due toantigen and antibody levels that are below the limit ofdetection of this assay.The [employer] HIV Ag/Ab Combo assay result andsupplemental assay results should be interpreted inconjunction with the patient's clinical presentation,history and other laboratory results. If the results areinconsistent with clinical evidence, additional testing issuggested to confirm the result. Blood Venous blood specimen / Unknown 02/17/2024 8:55 AM EDT 02/17/2024 11:16 AM EDT Michelle Campos MD LAB BLOOD ORDERABLES Fin al Result Performing Organization Address [facility] Co de Phone Number [facility] [address] [place] [phone] * Hm Colonoscopy (01/17/2024) Colonoscopy Normal Normal Pavel Kelly MD HEALTH MAINTENANCE Final Result from Last 3 Months or Most Recently Relevant to Health Maintenance Insurance [facility] * Guarantor: Feliz Jones Account Type Relation to Patient Date of Phone Billing Address Personal/Family Self [address] Care Teams Operating Room Tech Relationship Specialty Start Date End Date Name, MD Pavel [address] [place] [phone] PCP - General Internal Medicine 08/23/22 Yaneth Parks PharmD [address] [place] [phone] Pharmacist Internal Medicine 03/20/23
[2024-09-07 12:37] LABS: Alanine Aminotransferase 49 U/L (0-40); Albumin Level 4.3 g/dL (3.5-5.0); Alkaline Phosphatase 76 U/L (39-117); Anion Gap 11 (12-20); Aspartate Amino Transferase 32 U/L (5-37); Bilirubin Direct 0.2 mg/dL (0.0-0.5); Bilirubin Total 0.5 mg/dL (0.0-1.0); Blood Urea Nitrogen 21 mg/dL (9-16); Calcium 9.7 mg/dL (8.4-10.2); Carbon Dioxide 30 mmol/L (22-29); Chloride 104 mmol/L (96-108); Cholesterol 188 mg/dL (<200); Estimated Glomerular Filt Rate 57; Glucose Random 87 mg/dL (60-115); HDL Cholesterol 45 mg/dL (>40); LDL Cholesterol Calculated 128 mg/dL (<100); Potassium 4.5 mmol/L (3.3-5.1); Sodium 140 mmol/L (135-145); Total Protein 7.9 g/dL (6.5-8.0); Triglycerides 78 mg/dL (<150)
== END 2024-09-07 09:53 | disposition home or self-care (01) ==
LOC: HO.HHCL 09:52
PROVIDERS: Visit Provider Internal Medicine Geriatric Medicine
DX: E78.5 Hyperlipidemia, unspecified (principal); I10 Essential (primary) hypertension
CPT/HCPCS: 36415; 80048; 80061; 80076

== ENCOUNTER 2024-11-10 12:34 | Outpatient (AMB) | payer MEDICAID, SELFPAY ==
[2024-11-10 12:36] VITALS: BP 144/82; PULSE 74; O2SAT 97; BMI 32.9
--- NOTE | 2024-11-10 12:36 | A.OFFVIS_ITS ---
Vital Signs 3 11/10/24 12:36 Height 5 ft 3 in Weight 186 lb BMI 32.9 BP 144/82 H Blood Pressure Location Rt brachial Position Sitting Pulse 74 Pulse Source Pulse Oximeter Pulse Oximetry (%) 97 Oxygen Delivery Method Room Air Intake Visit Reasons: 1 year F/U Intake Note: Patient presents for 1 year follow up Wood Coater Required: Yes Wood Coater Services: Wood Coater Present Wood Coater Name: jarrett aguilera Information Interpreted: non-clinical & clinical Allergies No Known Allergies Allergy (Verified 11/10/24 12:38) Medication List - Last Reconciled 11/10/24 by ZEUS Castellanos amlodipine 10 mg PO QAM atorvastatin 10 mg PO DAILY cholecalciferol (vitamin D3) 25 mcg PO QAM hydralazine 10 mg PO BID hydrochlorothiazide 25 mg PO QAM levothyroxine 50 mcg PO DAILY losartan 50 mg PO QAM tadalafil (Cialis) 5 mg PO DAILY 90 days HPI Comments Details: 58-y/o male patient presents for follow up of MARY on CPAP. Patient denies any significant interval medical history changes. 03/06/2023 home sleep study result was significant for a severe degree of sleep apnea with increased severity in supine sleep. * AHI 27/hr, supine AHI 47/hr * oxygen gurvinder 71%, with SpO2 under 88% times 12 minutes of study time, an average SpO2 93% 03/31/2023, in-lab PAP titration study, which demonstrated stabilization of breathing and oxygenation on CPAP 4-90mlI3E. * After the in-lab PAP titration study, patient was started on CPAP 10 cm H2O, however this was not fully effective, as residual AHI was 22/hr. * Thus patient was started on APAP 5-20 cm H2O. Patient reports overall he is sleeping well with CPAP, just occasionally has a poor night of sleep. Sometimes will wake up too early- around 5am. When he has not slept well, he may have a headache or feel tired or her generalized weakness. States his nasal congestion symptoms are stable, tend to fluctuate throughout the year depending on the season. When he has not slept well, he may take a afternoon nap. He takes a cup of coffee in the morning and sometimes at 15:00. Denies any regular physical activity, however he is hoping to start walking again. Usual bedtime is around 11pm. PAP compliance review: He states he is in need of new PAP supplies, including filter, tubing, water tank. He reports he cleans his CPAP supplies routinely. He changes his CPAP supplies regularly. He uses distilled water in his CPAP water reservoir. PAP compliance report: 10/11/2024 - 11/09/2024 AirSense 10 AutoSet Serial number [id number] Overall usage 100% Usage greater than 4 hours 100% APAP 5-20 cm H2O with EPR 2 Maximum pressure 14.7 cm H2O Median leaks 0 L/min Residual AHI 1.8 per hour [facility] Medical History Elevated cholesterol HTN (hypertension) Surgical History History of laparoscopic cholecystectomy (11/06/21) Hx of excision of mass Family History Paternal Uncle Prostate cancer Social History Household Members Other:: single Alcohol intake: never Patient Tobacco Use Status: Never used Tobacco Physical Exam Vital Signs: Last Vital Signs Pulse 74 11/10/24 12:36 BP 144/82 H 11/10/24 12:36 Pulse Ox 97 11/10/24 12:36 Oxygen Delivery Method Room Air 11/10/24 12:36 BMI result Body Mass Index 32.9 Const General: no acute distress Orientation/consciousness: patient oriented x3 Resp Effort & Inspection: normal respiratory effort and able to speak in complete sentences Neuro General: patient oriented x3 Psych Mental Status: mental status grossly normal Speech and movement: Clear speech present Attitude: cooperative Results Reviewed Results Reviewed: Assessment & Plan Assessment & Plan (1) MARY (obstructive sleep apnea): Comment: Severe degree of sleep apnea with increased severity in supine sleep. AHI was 27/hr, supine AHI was 47/hr and oxygen gurvinder was 71% Code(s): G47.33 - Obstructive sleep apnea (adult) (pediatric) Category: Medical Plan For MARY: Reviewed with patient current compliance report, compared to previous home sleep study and in-lab PAP titration reports. Discussed that Pap therapy treats obstructive sleep apnea symptoms only when PAP device is used, as unfortunately the PAP device usage does not cure MARY. Continue APAP 5-20 cmH2O cmH2O w/ EPR 2 nightly > 4 hours, as pt continues to have good clinical effect from use. * Clean CPAP machine and supplies routinely. * Change CPAP supplies routinely. * Use distilled water in CPAP water reservoir. We will request CPAP supplies. Patient advised to notify us if nasal congestion or headache symptoms worsen. Pt to contact us or respiratory company with any questions or concerns. Pt to follow-up in 12 months or sooner prn. Coding Level of Care Code Est Pt Level 3 (17068) Diagnoses MARY (obstructive sleep apnea) G47.33
--- OUTSIDE RECORDS SUMMARY | 2024-11-10 14:27 | XMS_ITS | Clinical Summary ---
Author Organization [employer] Address [address] [place] [address] [address] [place] [address] Care Team Providers Care Principal Ios Developer Name Role Phone Name, Pavel FRIEDMAN Primary Care Provider [phone] Allergies Active Allergy Reactions Criticality Noted Date Comments Hydrochlorothiazide Swelling 01/29/2023 Face swelling Losartan Swelling 01/29/2023 Medications cholecalciferol (D3-1000) 25 MCG (1000 UT) capsuleIndication s:Vitamin D deficiency TAKE 1 CAPSULE BY MOUTH EVERY MORNING 90 capsule 2 024 Active Additional Information Patient not taking.Reported on 10/13/2024 tadalafil (Cialis) 5 MG tablet Take 5 mg by mouth Once per day. 025 Active amLODIPine (Norvasc) 2.5 MG tabletIndications :Essential hypertension Take 1 tablet (2.5 mg) by mouth Once per day. 90 tablet 3 025 2025 Active atorvastatin (Lipitor) 10 MG tabletIndications :Hyperlipidemia, unspecified hyperlipidemia type Take 1 tablet by mouth every day 90 tablet 3 025 Active hydrALAZINE (Apresoline) 25 MG tabletIndications :Essential hypertension Take 1 tablet (25 mg) by mouth 2 times daily. 180 tablet 3 025 Active indapamide (Lozol) 1.25 MG tabletIndications :Essential hypertension Take 1 tablet (1.25 mg) by mouth in the morning. 90 tablet 3 025 Active spironolactone (Aldactone) 25 MG tabletIndications :Essential hypertension Take 1 tablet (25 mg) by mouth Once per day. 90 tablet 3 025 Active levothyroxine (Synthroid, Levoxyl) 75 MCG tablet TAKE 1 TABLET BY MOUTH BEFORE BREAKFAST 90 tablet 3 Active latanoprost (Xalatan) 0.005 % ophthalmic solution Administer 1 drop into both eyes at bedtime. 2.5 mL 5 025 2025 Active amLODIPine (Norvasc) 2.5 MG tabletIndications :Essential hypertension Take 1 tablet (2.5 mg) by mouth in the morning. 90 tablet 3 024 2024 Discontinued(R eorder (will not trigger notification to Pharmacy)) hydrALAZINE (Apresoline) 25 MG tabletIndications :Essential hypertension Take 1 tablet (25 mg) by mouth 2 times daily. 180 tablet 3 024 2024 Discontinued(R eorder (will not trigger notification to Pharmacy)) indapamide (Lozol) 1.25 MG tabletIndications :Essential hypertension Take 1 tablet (1.25 mg) by mouth in the morning. 90 tablet 3 024 2024 Discontinued(R eorder (will not trigger notification to Pharmacy)) spironolactone (Aldactone) 25 MG tabletIndications :Essential hypertension Take 1 tablet (25 mg) by mouth in the morning. 90 tablet 3 024 2024 Discontinued(R eorder (will not trigger notification to Pharmacy)) levothyroxine (Synthroid) 75 MCG tablet Take 1 tablet (75 mcg) by mouth before breakfast. 30 tablet 11 024 2024 Discontinued atorvastatin (Lipitor) 10 MG tabletIndications :Hyperlipidemia, unspecified hyperlipidemia type Take 1 tablet by mouth every day 90 tablet 3 025 2024 Discontinued(R eorder (will not trigger notification to Pharmacy)) Active Problems Problem Noted Date Diagnosed Date Stage 3a chronic kidney disease 07/17/2024 Elevated transaminase level 12/12/2023 Fatigue 11/26/2023 Assessment & Plan (11/26/2023 7:06 PM EDT): ?Uncontrolled HTN? Lytes abn? Uncontrolled hypothyroid? Other hemorrhoids 08/17/2022 Overview (08/17/2022): Seen at [facility] ED 08/12 - conservative treatment recommended H/O transurethral resection of prostate 07/19/19 Erectile dysfunction 10/03/2021 Hyperlipidemia 10/03/2021 Subclinical hypothyroidism [...] Encounters Date Type Department Care Team Description 10/29/2024 3:00 PM EDT Office Visit [facility] [address] [place] [address] Micah, Rafaela, OD Primary open angle glaucoma of both eyes, unspecified glaucoma stage (Primary Dx); Dry eyes; Presbyopia 10/29/2024 Travel 10/21/2024 Refill [facility] [address] [place] [address] NamePavel MD 10/13/2024 Travel 10/12/2024 Telephone [facility] [address] [place] [address] Kelly Ratliff [place] january recalls 09/25/2024 Population Health Risk Score [facility] () Department [address] [phone] Provider, Population Health Generic 09/16/2024 2:30 PM EST Office Visit [facility] [address] [place] [address] NamePavel MD Essential hypertension (Primary Dx); Stage 3a chronic kidney disease (CMS/HCC) 09/07/2024 Orders Only [facility] [address] [place] [address] NamePavel MD 09/03/2024 Travel from Last 3 Months Immunizations Name [...] Sign Reading Time Taken Comments Blood Pressure 128/78 10/13/2024 1:11 PM EDT Pulse 77 09/16/2024 2:31 PM EST Temperature 36.6 ??C (97.8 ??F) 09/16/2024 2:31 PM ES T Respiratory Rate 14 09/16/2024 2:31 PM EST Oxygen Saturation 96% 09/16/2024 2:31 PM EST Inhaled Oxygen Concentration - - Weight 84.1 kg (185 lb 6.4 oz) 09/16/2024 2:31 P M EST Height 160 cm (5' 3 ) 09/16/2024 2:31 PM EST Body Mass Index 32.84 09/16/2024 2:31 PM EST Plan of Treatment Upcoming Encounters Date Type Department Care Team (Late st Contact Info) Description 12/10/2024 1:00 PM EDT Office Visit [facility] [address] [place] [address] Micah, Rafaela, OD [address] [place] [address] 01/25/2025 1:30 PM EDT Office Visit [facility] [address] [place] [address] Name, MD Pavel [address] [place], [place] [phone] Health Maintenance Due Date Last Done Comments CT Colonography 1963 FIT DNA/Cologuard 1963 FIT 1963 FOBT 1963 Sigmoidoscopy 1965 Pneumococcal Vaccine: 50+ Years (1 of 1 - PCV) 12/27/2013 Zoster Vaccines (1 of 2) 12/27/2013 COVID-19 Vaccine (1 - season) 2024 Influenza Vaccine (#1) 2024 06/28/2010 Alcohol/Substance Use Screening 03/02/2025 03/02/2024 Depression Screening 03/02/2025 03/02/2024, 03/02/20 24 SDOH Screening 04/07/2025 04/07/2024 Tobacco Screening 09/16/2025 09/16/2024 DTaP/Tdap/Td Vaccines (2 - Td or Tdap) 12/24/2026 12/24/2016 Lipid Panel 09/07/2029 09/07/2024, 01/0 09/2024, 07/11/2023, Additional history exists Colonoscopy 01/16/2034 01/17/2024 Colorectal [...] PharmD Blood Pressure < 140/90 Blood Pressure 128/78(2024 1:11 PM EDT) No Puia, Yaneth, PharmD Patient will adhere to medication regimen General On track( 11:27 AM EDT) No Puia, Yaneth, PharmD LDL Calc < 100 Result Component No Puia, Yaneth, PharmD Procedures Procedure Name Priority Date/Time Associated Diagnosis Comments LIPID PANEL, STANDARD Routine 09/07/2024 9:54 AM EST BASIC METABOLIC PANEL Routine 09/07/2024 9:54 AM EST HEPATIC FUNCTION PANEL Routine 09/07/2024 9:54 AM EST HEPATITIS PANEL, GENERAL Routine 02/17/2024 8:55 AM EDT Elevated transaminase level HIV 1/2 ANTIGEN/ANTIBODY, FOURTH GENERATION W/RFL Routine 02/17/2024 8:55 AM EDT Elevated transaminase level HM COLONOSCOPY Routine 01/17/2024 from Last 3 Months or Most Recently Relevant to Health Maintenance Results * (ABNORMAL) Hepatic Function Panel (09/07/2024 9:54 AM EST) Bilirubin, Total 0.5 0.0 - 1.0 mg/dL [facility] Bilirubin, Direct 0.2 0.0 - 0.5 mg/dL [facility] Aspartate Amino Transferase 32 5 - 37 U/L [facility] Alanine Aminotransferase 49(H) 0 - 40 U/L [facility] Total Protein 7.9 6.5 - 8.0 g/dL [facility] Albumin Level 4.3 3.5 - 5.0 g/dL [facility] Alkaline Phosphatase 76 39 - 117 U/L [facility] 09/07/2024 9:54 AM EST 09/07/2024 11:12 AM EST us Pavel Name MD LAB BLOOD ORDERABLES Final Resul t [facility] [address] [place] [phone] * (ABNORMAL) Lipid Panel, Standard (09/07/2024 9:54 AM EST) Triglycerides 78 <150 mg/dL [facility] Comment:Desirable Triglyceri de: less than 150 mg/dLBorderline High Triglyceride 150-199 mg/dLHigh Triglyceride: 200-499 mg/dLVery High Triglyceride: greater than or equal to 5OO mg/dL Cholesterol 188 <200 mg/dL [facility] Comment:Desirable Cholestero l: less than 200 mg/dLBorderline High Cholesterol: 200-239 mg/dLHigh Cholesterol: greater than 239 mg/dL LDL Cholesterol Calculated 128(H) <100 mg/dL [facility] Comment:Desirable LDL: less than 100 mg/dLNear Optimal/Above Optimal LDL: 110- 129 mg/dLBorderline High LDL: 130-159 mg/dLHigh LDL: 160-189 mg/dLVery High LDL: greater than or equal to 190 mg/dL HDL Cholesterol 45 >40 mg/dL [facility] Comment:Desirable HDL: great er than 40 mg/dL Note: This HDL assay may give artificially low results in patients with liver disease. 09/07/2024 9:54 AM EST 09/07/2024 11:12 AM EST us Pavel Kelly MD LAB BLOOD ORDERABLES Final Resul t Performing Organization Address [facility] Co de Phone Number [facility] [address] [place] [phone] * (ABNORMAL) Basic Metabolic Panel (09/07/2024 9:54 AM EST) Sodium 140 135 - 145 mmol/L [facility] Potassium 4.5 3.3 - 5.1 mmol/L [facility] Chloride 104 96 - 108 mmol/L [facility] Carbon Dioxide 30(H) 22 - 29 mmol/L [facility] Anion Gap 11(L) 12 - 20 [facility] Urea Nitrogen (BUN) 21(H) 9 - 16 mg/dL [facility] Creatinine, Serum 1.29 0.5 - 1.4 mg/dL [facility] Estimated Glomerular Filt Rate 57 [facility] Comment:Chronic Kidney Disea se: Estimated GFR < 60 mL/min/1.20o2Dwprqx Kidney Disease: Estimated GFR < 15 mL/min/1.73m2 Glucose 87 60 - 115 mg/dL [facility] Calcium 9.7 8.4 - 10.2 mg/dL [facility] 09/07/2024 9:54 AM EST 09/07/2024 11:12 AM EST us Pavel Kelly MD LAB BLOOD ORDERABLES Final Resul t Performing Organization Address [facility] Co de Phone Number [facility] [address] [place] [phone] * Hepatitis Panel, General (02/17/2024 8:55 AM EDT) Hepatitis A IgM Nonreactive Nonreactive [facility] Comment:IgM antibodies to MONAE V not detected; does not exclude earlyacute or recovered HAV infection. ~Hepatitis B Surface Antibody NONREACTIVE Nonreactive [facility] Comment:Nonreactive: < 8.00 mIU/mL Hepatitis B Core Antibody Nonreactive Nonreactive [facility] Hepatitis C Antibody Nonreactive Nonreactive [facility] Comment:Antibodies to HCV no t detected; does not exclude early acuteHCV infection. Hepatitis B Surface Ag Negative Negative [facility] Blood 02/17/2024 8:55 AM EDT 02/17/2024 11:16 AM EDT us Michelle Campos MD LAB BLOOD ORDERABLES Fin al Result [facility] [address] [place] [phone] * HIV-1/2 Antigen and Antibodies, Fourth Generation, with Reflexes (02/17/2024 8:55 AM EDT) Pathologist [facility] HIV AB/AG Nonreactive Nonreactive [facility] Comment:HIV-1 p24 Ag and/or HIV-1/HIV-2 Ab not detected.A test result that is nonreactive does not exclude thepossibility of exposure to or infection with HIV-1 and/orHIV-2. Nonreactive results in this assay for individualswith prior exposure to HIV-1 and/or HIV-2 may be due toantigen and antibody levels that are below the limit ofdetection of this assay.The [employer] HIV Ag/Ab Combo assay result andsupplemental assay results should be interpreted inconjunction with the patient's clinical presentation,history and other laboratory results. If the results areinconsistent with clinical evidence, additional testing issuggested to confirm the result. Blood Venous blood specimen / Unknown 02/17/2024 8:55 AM EDT 02/17/2024 11:16 AM EDT us Michelle Campos MD LAB BLOOD ORDERABLES Fin al Result [facility] [address] [place] [phone] * Hm Colonoscopy (01/17/2024) Colonoscopy Normal Normal us Pavel Kelly MD HEALTH MAINTENANCE Final Result from Last 3 Months or Most Recently Relevant to Health Maintenance Insurance [facility] C3 Care Teams Principal Ios Developer Relationship Specialty Start Date End Date Name, MD Pavel [address] [place] [address] PCP - General Internal Medicine 08/23/22
--- OUTSIDE RECORDS SUMMARY | 2024-11-10 14:27 | XMS_ITS | Encounter Summary ---
Author Organization [employer] Address [address] [place] [address] Care Team Providers Care Mechanical Product Engineer Name Role Phone Name, Pavel FRIEDMAN Primary Care Provider [phone] Yaneth Parks PharmD Unavailable [phone] Encounter Details Date Type Department Care Team ([facility] st Contact Info) Description 12/12/2023 Orders Only [facility] [address] [place], [place] [phone] Michelle Campos MD [address], [place] [phone] Elevated transaminase level (Primary Dx) Social History [...] Description 12/10/2024 1:00 PM EDT Office Visit [facility] [address] [place], [place] [phone] Micah, Rafaela, OD [address] [place] [address] 01/25/2025 1:30 PM EDT Office Visit [facility] [address] [place] [address] Name, MD Pavel [address] [place] [address] documented as of this encounter Goals Goal [...] EDT) Anti Nuclear Antibody Screen NEGATIVE NEGATIVE [facility] Comment:MICHELLE IFA is a first [...] clinicallysuspected inflammatory myopathies.AC-0: NegativeInternational Consensus on MICHELLE Patterns(https://doi.org/10.1515/yvyw-0408-5298)For additional information, please refer tohttp://education.Viptable.Balihoo/faq/MVE044(This link is being provided for informational/educational purposes only.)THIS TEST WAS PERFORMED AT:[facility] [place] [phone] SOOD MD MICHELLE Titer TNP [facility] MICHELLE Pattern [facility] MICHELLE TITER 2 (REF LAB) [facility] MICHELLE Pattern 2 [facility] MICHELLE TITER 3 [facility] MICHELLE PATTERN 3 [facility] Blood Venous blood specimen / Unknown 02/17/2024 8:55 AM EDT 02/17/2024 11:16 AM EDT us Michelle Campos MD LAB BLOOD ORDERABLES Fin al Result Performing Organization Address City/[facility]/ZIP Co de Phone Number [facility] [address] [place] [phone] * HIV-1/2 Antigen and Antibodies, Fourth Generation, with Reflexes (02/17/2024 8:55 AM EDT) HIV AB/AG Nonreactive Nonreactive [facility] Comment:HIV-1 p24 Ag and/or HIV-1/HIV-2 Ab not detected.A test result that is nonreactive does not exclude thepossibility of exposure to or infection with HIV-1 and/orHIV-2. Nonreactive results in this assay for individualswith prior exposure to HIV-1 and/or HIV-2 may be due toantigen and antibody levels that are below the limit ofdetection of this assay.The [employer] HIV Ag/Ab Combo assay result andsupplemental assay [...] al Result Performing Organization Address [facility]/ZIP Co de Phone Number [facility] [address] [place] [phone] * Hepatitis Panel, General (02/17/2024 8:55 AM EDT) Hepatitis A IgM Nonreactive Nonreactive [facility] Comment:IgM antibodies to MONAE V not detected; does not exclude earlyacute or recovered HAV infection. ~Hepatitis B Surface Antibody NONREACTIVE Nonreactive [facility] Comment:Nonreactive: < 8.00 mIU/mL Hepatitis B Core Antibody Nonreactive Nonreactive [facility] Hepatitis C Antibody Nonreactive Nonreactive [facility] Comment:Antibodies to HCV no t detected; does not exclude early acuteHCV infection. Hepatitis B Surface Ag Negative Negative [facility] Blood 02/17/2024 8:55 AM EDT 02/17/2024 11:16 AM EDT Michelle Campos MD LAB BLOOD ORDERABLES Fin al Result Performing Organization Address [facility]/ZIP Co de Phone Number [facility] [address] [place] [phone] * Vitamin D, 25-Hydroxy, Total, Immunoassay (02/17/2024 8:55 AM EDT) Vitamin D 25-OH Total 42.2 >30 ng/mL [facility] Comment:Health Based Referen ce Values*< 20 ng/mL Emldanyah38-14 ng/mL Insufficient> 30 ng/mL Sufficient*Shane LEE. N [...] al Result Performing Organization Address [facility]/ZIP Co de Phone Number [facility] [address] [place] [phone] * Hepatic Function Panel (02/17/2024 8:55 AM EDT) Bilirubin, Total 0.7 0.0 - 1.0 mg/dL [facility] Bilirubin, Direct 0.2 0.0 - 0.5 mg/dL [facility] Aspartate Amino Transferase 27 5 - 37 U/L [facility] Alanine Aminotransferase 39 0 - 40 U/L [facility] Total Protein 7.4 6.5 - 8.0 g/dL [facility] Albumin Level 4.3 3.5 - 5.0 g/dL [facility] Alkaline Phosphatase 76 39 - 117 U/L [facility] Blood Venous blood specimen / Unknown 02/17/2024 8:55 AM EDT 02/17/2024 11:16 AM EDT us Michelle Campos MD LAB BLOOD ORDERABLES Fin al Result [facility] [address] [place] [phone] documented in this encounter Visit Diagnoses Diagnosis Elevated transaminase level- Primary documented in this encounter Additional Health Concerns Assessment Noted Time PHQ-9 Depression Total Score: 2 07/19/19 23 11:06 AM EST documented as of this encounter Care Teams Mechanical Product Engineer Relationship Specialty Start Date End Date Name, MD Pavel [address] [place] [address] PCP - General Internal Medicine 08/23/22 Yaneth Parks PharmD [address] [place] [address] Pharmacist Internal Medicine 03/20/23 10/12/24 documented as of this encounter
== END 2024-11-10 13:21 | disposition home or self-care (01) ==
LOC: HO.HSMS 12:35
PROVIDERS: PCP Internal Medicine Geriatric Medicine; Visit Provider Nurse Practitioner Family
DX: G47.33 Obstructive sleep apnea (adult) (pediatric) (principal)
CPT/HCPCS: 99213

== ENCOUNTER → 2024-11-10 12:34 | Outpatient (BNVA) | payer MEDICAID, SELFPAY | PROVIDERS: PCP Internal Medicine Geriatric Medicine; Visit Provider Nurse Practitioner Family | DX: G47.33 Obstructive sleep apnea (adult) (pediatric) (principal); Z99.89 Dependence on other enabling machines and devices | CPT/HCPCS: 99212 ==

== ENCOUNTER 2025-01-25 13:44 | Outpatient (REF) | payer MEDICAID, SELFPAY ==
--- OUTSIDE RECORDS SUMMARY | 2025-01-25 13:30 | XMS_ITS | Encounter Summary ---
Author Organization [employer] Address [address] [place] [address] [address] [place] [address] Care Team Providers Care Member Of [employer] Name Role Phone Name, Pavel FRIEDMAN Primary Care Provider [phone] Reason for Visit * Reason Comments Follow-up Encounter Details Date Type Department Care Team ([facility] Contact Info) Description 01/25/2025 1:30 PM EDT Office Visit [facility] [address], [place] [id number] Name, MD Pavel [address] [place] [address] Essential hypertension (Primary Dx); Stage 3a chronic kidney disease (CMS/HCC); Heat intolerance Social History Tobacco Use Types Packs/Day Years [...] the past 12 months, has t he [employer], gas, oil or water company threatened to [...] AM EDT documented as of this encounter Last Filed Vital Signs Vital Sign Reading Time Taken Comments Blood Pressure 132/82 01/25/2025 1:22 PM EDT Pulse 60 01/25/2025 1:22 PM EDT Temperature - - Respiratory Rate 18 01/25/2025 1:22 PM EDT Oxygen Saturation 97% 01/25/2025 1:22 PM EDT Inhaled Oxygen Concentration - - Weight 81.6 kg (179 lb 12.8 oz) 01/25/2025 1:22 PM EDT Height 160 cm (5' 3 ) 01/25/2025 1:22 PM EDT Body Mass Index 31.85 01/25/2025 1:22 PM EDT documented in this encounter Functional Status * Over the last 2 weeks, how often have you been bothered by any of the following problems? Question Answer Date of Assessment Author Feeling nervous, anxious, or on edge 1 01/25/2025 1:24 PM EDT Tyson Ratliff MA Not being able to stop or control worrying 1 01/25/2025 1:24 PM EDT Tyson Ratliff MA Worrying too much about different things 1 01/25/2025 1:24 PM EDT Tyson Ratliff MA Trouble relaxing 1 01/25/2025 1:24 PM EDT Kelly Rosenthal MA Being so restless that it is hard to sit still 1 01/25/2025 1:24 PM EDT Tyson Ratliff MA Becoming easily annoyed or irritable 0 01/25/2025 1:24 PM EDT Tyson Ratliff MA Feeling afraid as if somethi ng awful might happen 1 01/25/2025 1:24 PM EDT Tyson Ratliff MA TINO-7 Total Score 6 01/25/2025 1:24 PM EDT Kelly Ratliff MA documented as of this encounter Progress Notes * Pavel Kelly, - 01/25/2025 1:30 PM EDT Subjective Patient ID: Feliz Jones is a 59 y.o. male who presents for Follow-up. Patient comes for follow-up visit. We discussed several issues. His blood pressure is well-controlled. He assured me he is using his medications as prescribed. Current medication regimen includes indapamide 1.25 mg, spironolactone 25, amlodipine 2.5, hydralazine 25 mg BID. He is also on atorvastatin for primary prevention of cardiovascular disease. He has a personal history of subclinical hypothyroidism. He is maintained on 75 mcg of levothyroxine daily. Today he complains of heat intolerance and diarrhea usually after he takes the levothyroxine. His weight is stable. He does not have any tremors. HR is normal. Review of Systems Constitutional: Negative for chills, fatigue and fever. HENT: Negative for sore throat. Respiratory: Negative for cough, chest tightness and shortness of breath. Cardiovascular: Negative for chest pain, palpitations and leg swelling. Gastrointestinal: Negative for abdominal pain and blood in stool. Endocrine: Positive for heat intolerance. Visit Vitals BP 132/82 (BP Location: Left arm, Patient Position: Sitting, BP Cuff Size: Adult) Pulse 60 Resp 18 Ht 5' 3 (1.6 m) Wt 179 lb 12.8 oz (81.6 kg) SpO2 97% BMI 31.85 kg/m?? Smoking Status Never BSA 1.9 m?? Objective Physical Exam Constitutional: Appearance: Normal appearance. Cardiovascular: Rate and Rhythm: Normal rate and regular rhythm. Heart sounds: No murmur heard. Pulmonary: Effort: Pulmonary effort is normal. No respiratory distress. Breath sounds: No wheezing, rhonchi or rales. Abdominal: Palpations: Abdomen is soft. Tenderness: There is no abdominal tenderness. Musculoskeletal: Right lower leg: No edema. Left lower leg: No edema. Neurological: Mental Status: He is alert. Assessment/Plan Diagnoses and all orders for this visit: Essential hypertension Comments: Continue current meds. Avoid NSAIDs. Recheck BMP. Orders: - Basic Metabolic Panel; Future Stage 3a chronic kidney disease (CMS/HCC) Heat intolerance Comments: I recommend to recheck TSH to rule out iatrogenic hyperthyroidism. Orders: - TSH W/Reflex to FT4; Future documented in this encounter Plan of Treatment Upcoming Encounters Date Type Department Care Team (Late st Contact Info) Description 02/18/2025 3:30 PM EDT Office Visit [facility] [address] [place] [address] MicahRafaela, OD [address] [place] [address] Scheduled Orders Name Type Priority Associated Diagnoses Orde r Schedule Basic Metabolic Panel Lab Routine Essential hypertension Expected: 01/25/2025 (Approximate), Expires: 01/25/2026 TSH W/Reflex to FT4 Lab Routine Heat intolerance Expected: 01/25/2025 (Approximate), Expires: 01/25/2026 documented as of this encounter Goals Goal Patient Goal Type Associated Problems Recent Progress Patient-Stated? Author Record your blood pressure once per day Blood Pressure On track( 11:27 AM EDT) No Puia, Yaneth, PharmD Blood Pressure < 140/90 Blood Pressure 132/82(2024 1:22 PM EDT) No Puia, Yaneth, PharmD Patient will adhere to medication regimen General On track(06/10/2 024 11:27 AM EDT) No Yaneth Parks, PharmD LDL Calc < 100 Result Component No Yaneth Parks, PharmD documented as of this encounter Visit Diagnoses Diagnosis Essential hypertension- Primary Unspecified essential hypertension Stage 3a chronic kidney disease (CMS/HCC) Heat intolerance Unspecified effects of heat and light documented in this encounter Additional Health Concerns Assessment Noted Time PHQ-9 Depression Total Score: 0 03/02/20 24 1:06 PM EDT documented as of this encounter Care Teams Member Of [employer] Relationship Specialty Start Date End Date Name, MD Pavel [address] [place] [address] PCP - General Internal Medicine 08/23/22 documented as of this encounter
[2025-01-25 17:31] LABS: Prostate Specific Antigen 2.66 ng/mL (<0.05-4.0)
[2025-01-25 17:33] LABS: Anion Gap 10 (12-20); Blood Urea Nitrogen 25 mg/dL (9-16); Calcium 9.0 mg/dL (8.4-10.2); Carbon Dioxide 30 mmol/L (22-29); Chloride 105 mmol/L (96-108); Estimated Glomerular Filt Rate > 60; Potassium 3.8 mmol/L (3.3-5.1); Sodium 141 mmol/L (135-145)
[2025-02-01 14:48] LABS: Testosterone, Free 21.2 pg/mL (35.0-155.0)
== END 2025-01-25 13:45 | disposition home or self-care (01) ==
LOC: HO.HHCL 13:44
PROVIDERS: Nurse Practitioner Family; PCP Internal Medicine Geriatric Medicine; Visit Provider Internal Medicine Geriatric Medicine
DX: I12.9 Hypertensive chronic kidney disease with stage 1 through stage 4 chronic kidney disease, or unspecified chronic kidney disease (principal); N18.31 Chronic kidney disease, stage 3a; E29.1 Testicular hypofunction; E03.8 Other specified hypothyroidism; N52.9 Male erectile dysfunction, unspecified; R68.89 Other general symptoms and signs
CPT/HCPCS: 36415; 80048; 84153; 84402; 84403; 84443